=== PATIENT | male | born 1975 | race Caucasian/White ===

== ENCOUNTER 2019-11-04 07:41 | Inpatient (IN) | payer OTHER, SELFPAY ==
[2019-11-04] VITALS (14 sets, daily range): BP systolic 124–153; BP diastolic 83–96; PULSE 78–120; RESP 15–18; TEMP 36.6–37; O2SAT 99–100; BMI 22.8
--- NOTE | ~2019-11-04 | US_ITS ---
US right upper quadrant DATE: 11/05/2019 08:43 INDICATION: Abnormal liver function tests TECHNIQUE: Real-time imaging and Doppler analysis of the right upper quadrant including liver, pancre as, gallbladder COMPARISON: 07/01/2017 CT abdomen pelvis FINDINGS: The common bile duct measures 4 mm, within normal limits. Normal hepatopedal portal venous flow direction. No gallstones are evident. Negative sonographic Rodas's sign. There is fatty change of the liver. No hepatic or pancreatic space-occupying mass lesion is evident. IMPRESSION: Hepatic steatosis Reviewed, dictated and finalized at [facility] Reviewed, dictated and finalized at [facility] IMPRESSION: Hepatic steatosis
--- NOTE | 2019-11-04 07:45 | ED.ALCOHOL ---
HPI - Alcohol General Chief Complaint: Alcohol Stated Complaint: etoh withdrawals Time Seen by Provider: 11/04/19 07:44 Source: patient Mode of arrival: ambulatory Limitations: no limitations History of Present Illness HPI narrative: A 44 y/o male presents to the ED with c/o alcohol withdrawals. Pt states that he has a PMHx of alcoholism and recently had a relapse. He notes that he stopped drinking on 10/31/19 and started to have withdrawal symptoms last night. Pt adds that he cannot sleep, is shaky, and is diaphoretic. He denies hallucinations, seizures, and fever. Pt states that he has been in an outpatient detox program before and was prescribed Ativan. He notes that he has not had any Ativan since his most recent relapse. Dr. Garay is his PCP. MD complaint: alcohol withdrawal Last drink: days (ago) (4) Chronic alcohol use: Yes Associated symptoms: diaphoresis and other (shakiness, trouble sleeping) Related Data Home Medications Medication Instructions Recorded Confirmed hydrochlorothiazide 25 mg tablet 25 mg PO DAILY 10/13/19 insulin admin supplies #1 each 10/13/19 lisinopril 40 mg tablet 40 mg PO DAILY 10/13/19 insulin lispro [Humalog U-100 11/04/19 Insulin] Allergies Allergy/AdvReac Type Severity Reaction Status Date / Time No Known Allergies Allergy Verified 11/04/19 07:51 Review of Systems Review of Systems: All systems reviewed & are unremarkable except as noted in HPI and below Constitutional: Constitutional: Denies fever(s) and Reports other (trouble sleeping, shakiness) Cardiovascular: Cardiovascular: Reports other (diaphoresis) Neurologic: Denies other (seizure) Psychiatric: Psychiatric: Denies other (hallucinations) [facility] Past Medical History Medical History Adjustment disorder with anxiety Benign essential HTN Diabetes type 1, controlled History of resection and anastomosis of trachea Hyperlipidemia Major depression, recurrent, chronic Pneumonia Seasonal allergies Tracheal stenosis Surgical History Surgical History (Updated 11/04/19 @ 07:48 by Angela Spicer) No pertinent past surgical history Family History Family History Father Family history of hypercholesterolemia Family history of cardiovascular disease Mother Hypertension Social History Social History (Updated 11/04/19 @ 07:49 by Angela Luciano Smoking status: Never smoker Alcohol intake: current Alcohol use details: Alcoholic Gender identity (if verbalized by the patient): Male Exam Const: General: healthy appearing and no acute distress Nutritional Appearance: well nourished HENMT: Mouth: Yes lip normal and Yes dry mucous membranes Eyes: Conjunctivae: conjunctivae normal Pupils: Equal, round and reactive pupils present Resp: Effort & Inspection: normal respiratory effort Auscultation: clear to auscultation bilaterally Cardio: Rate: tachycardic Rhythm: regular rhythm Heart sounds: no murmurs GI: GI Palp: Yes Soft to palpation and No Tenderness to palpation present (GI) Auscultation: normal bowel sounds Back/Spine/Pelvis: Back: other (full ROM) Skin: General skin exam: normal color, dry skin and other (warm) Neuro: General: patient oriented x3 (alert) and other (tremor) Speech: normal speech Extrem: General: full ROM Psych: Mental Status: mental status grossly normal Affect: normal affect Course Vital Signs Vital signs: Vital Signs Temperature 36.8 C 11/04/19 07:45 Pulse Rate 117 H 11/04/19 07:45 Respiratory Rate 18 11/04/19 07:45 Blood Pressure 150/96 H 11/04/19 07:45 Pulse Oximetry 100 11/04/19 07:45 Temperature 36.8 C 11/04/19 07:45 Pulse Rate 92 11/04/19 08:54 Respiratory Rate 15 11/04/19 08:54 Blood Pressure 152/85 H 11/04/19 08:54 Pulse Oximetry 100 11/04/19 08:54 MDM - Alcohol MDM Narrative Medical decision making narrative:
[2019-11-04 07:50] LABS: Glucose Point of Care 292 (65-105)
[2019-11-04] MEDS: SODIUM CHLORIDE 0.9% IV 1,000 ML 999 ML IV CONT (08:01)
[2019-11-04] MEDS: LORAZEPAM INJ 2 MG/ML VIAL 4 MG IV PUSH (08:01)
[2019-11-04 08:14] LABS: Basophils Absolute Auto 0.1 K/mm3 (0.0-0.1); Basophils Percent Auto 1.8 % (0.2-1.2); Eosinophils Percent Auto 0.4 % (0-4.4); Hematocrit 37.8 % (42.0-52.0); Hemoglobin 13.1 g/dL (14.0-18.0); Immature Granulocyte Absolute 0.02 K/mm3 (0.00-0.031); Immature Granulocyte Percent A 0.4 % (0-0.5); Lymphocytes Percent Auto 10.1 % (18.3-44.2); Mean Corpuscular HGB Conc 34.7 g/dl (32-36); Mean Corpuscular Hemoglobin 32.9 pg (26-34); Mean Platelet Volume 9.2 fl (7.4-10.4); Monocytes Absolute Auto 0.6 K/mm3 (0.1-0.6); Monocytes Percent Auto 12.5 % (2.6-8.5); Neutrophils Absolute Auto 3.7 K/mm3 (1.3-6.7); Neutrophils Percent Auto 74.8 % (45.5-73.1); Platelet Count Result 232 k/mm3 (150-375); Red Blood Count 3.98 M/mm3 (4.6-6.20); Red Cell Distribution Width 11.6 % (11.5-14.5)
[2019-11-04 08:26] LABS: Alanine Aminotransferase 66 U/L (4-50); Albumin Level 4.9 g/dL (3.5-5.1); Alkaline Phosphatase 173 U/L (38-126); Aspartate Amino Transferase 116 U/L (17-59); Bilirubin,Total 0.9 mg/dL (0.2-1.3); Blood Urea Nitrogen 9 mg/dL (9-20); Calcium 8.9 mg/dL (8.4-10.2); Carbon Dioxide 29 mmol/L (22-30); Chloride 88 mmol/L (98-107); Estimated CRCL calculation 129 ml/min; Estimated Glomerular Filt Rate > 60; Glucose 285 mg/dL (75-110); Potassium 4.3 mmol/L (3.4-5.0); Sodium 130 mmol/L (137-145)
[2019-11-04] MEDS: LORAZEPAM INJ 2 MG/ML VIAL IV PUSH (08:53)
[2019-11-04] MEDS: FOLIC ACID 1 MG TABLET PO (09:56)
[2019-11-04] MEDS: CHLORDIAZEPOXIDE 25 MG CAPSULE 100 MG PO ×3 (09:56→23:56)
[2019-11-04] MEDS: THIAMINE HCL 100 MG TABLET PO (09:56)
[2019-11-04 11:46] LABS: Glucose Point of Care 101 (65-105)
--- NOTE | 2019-11-04 12:10 | ADMGEN ---
This patient, Eduard Dc, was admitted to IMU Room 204-0 @ 1015. Patient pt cooperative - oriented to hospital policies and general routines including ID bracelet, bed and alarms, visiting hours, pain management, procedures, bathroom and other care routines, personal items, smoking policy, room service/diet, and visiting hours. Valuables list has been completed. Information on how to activate the Rapid Response Team has been discussed. Patient are encouraged to report perceived risks to care and to ask questions if they do not understand what they are told or what they should do.
--- NOTE | 2019-11-04 12:57 | PM.IMHP ---
H&P: HPI History of Present Illness Chief complaint: Alcohol withdrawal Narrative: Eduard Dc is a 44 year old male 44-year-old male with history of alcohol abuse. He was a social drinker prior to 2017. At that time he began drinking 6 shots of bourbon per day. He had from his family. However when they went on vacation in 2018 he went into withdrawal. He was hospitalized and intubated. Because of post intubation tracheal stenosis he underwent a resection of the stenotic area of trachea which he was told was only 3 mm in diameter. He did well and did not relapse until July 2019. He gradually being drinking again. He saw psychiatrist in September of 2019 and stopped drinking. He remained dry for about a month and then began drinking a little bit of time in September. He slowly work his way back up to about 6 shots of bourbon per day. He would drink until he passed out. Four days prior to admission he decided to stop drinking again. He gradually developed worsening shakes sweats anxiety and insomnia. Because he was afraid of full delirium tremens with hallucinations as he had last time and even seizures which she never had he decided to come to the emergency department instead of treating himself at home. After 6 mg of Ativan IV and 100 mg of Librium orally he is much less shaky and anxious. He does have a history of major depressive disorder with associated anxiety. He also has a family history of alcoholism in his father. Patient denied any history of DUI. 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 However it is causing a severe strain on his relationship with his . Review of Systems Review of Systems: All systems reviewed & are unremarkable except as noted in HPI and below PMFSH Past Medical History Medical History (Updated 11/04/19 @ 14:02 by Sadiq Barahona MD) Benign essential HTN Chest wall pain following surgery Diabetes type 1, controlled Hyperlipidemia Major depression, recurrent, chronic Pneumonia Seasonal allergies Tracheal stenosis Surgical History Surgical History (Updated 11/04/19 @ 13:54 by Sadiq Barahona MD) History of resection and anastomosis of trachea Family History Family History (Updated 11/04/19 @ 14:17 by Sadiq Barahona MD) Father Family history of hypercholesterolemia Family history of cardiovascular disease COPD (chronic obstructive pulmonary disease) Alcoholism Mother Hypertension Social History Social History (Updated 11/04/19 @ 13:56 by Sadiq Barahona MD) Smoking status: Never smoker Second hand tobacco smoke exposure: Yes (father) Alcohol intake: current Drinks per week: 40 Alcohol use details: Alcoholic Substance use: never Living arrangements: with family Additional living arrangements comments: Resides with spouse and 3 children, ages 5,10, and 22. 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 Gender identity (if verbalized by the patient): Male Spiritual care concerns: No Agree to blood products: Yes Meds Home Medications and Allergies Home Medications Medication Instructions Recorded Confirmed Type hydrochlorothiazide 25 mg tablet 25 mg PO DAILY 10/13/19 11/04/19 History lisinopril 40 mg tablet 40 mg PO DAILY 10/13/19 11/04/19 History bupropion HCl 75 mg tablet 75 mg PO TID #30 tablet 10/17/19 11/04/19 Rx naltrexone 50 mg tablet 50 mg PO DAILY #30 tablet 10/17/19 11/04/19 Rx atorvastatin [Lipitor] 10 mg PO DAILY 11/04/19 11/04/19 History insulin lispro [Humalog U-100 See Rx Instructions .ROUTE .COMPLEX 11/04/19 11/04/19 History Insulin] lorazepam [Ativan] 0.5 mg PO TID PRN 11/04/19 11/04/19 History Allergies Allergy/AdvReac Type Severity Reaction Status Date / Time No Known Allergies Allergy Verified 11/04/19 07:51 Vital Signs Vital Signs - 24 hr 11/04/19 07:45 11/04/19
[2019-11-04] MEDS: lisinopriL 20 MG TABLET 40 MG PO (14:48)
[2019-11-04] MEDS: ATORVASTATIN 10 MG TABLET PO (14:48)
[2019-11-04 15:10] LABS: Immature Reticulocyte Fraction 9.6 % (3.0-15.9); Reticulocyte Hemoglobin Conten 39.4 pg (28.2-35.7); Reticulocyte Percent 3.06 % (0.7-4.3); Reticulocytes Absolute 0.12 B/L (32.2-175.7)
[2019-11-04 15:33] LABS: Iron 101 ug/dL (49-181)
[2019-11-04 15:38] LABS: Magnesium 1.5 mg/dL (1.6-2.3)
[2019-11-04 15:41] LABS: Percent Iron Saturation 35 % (20-50)
[2019-11-04 16:00] LABS: IFOB Positive Control Positive; Immunochemical Fecal Occult Bl Negative (N)
[2019-11-04 16:09] LABS: Hepatitis B Surface Antigen Negative (Negative)
[2019-11-04 16:12] LABS: CRP 0.8 mg/dL (<1.0)
[2019-11-04 16:15] LABS: HAV RESULT Negative (Negative); Hepatitis B Core IgM Result Negative (Negative)
[2019-11-04 16:27] LABS: Hepatitis C Virus Antibody Negative (Negative)
[2019-11-04] MEDS: buPROPion HCL 75 MG TABLET PO (16:41)
[2019-11-04 16:52] LABS: Folic Acid > 20.0 ng/mL (2.76->20)
[2019-11-04 17:18] LABS: Glucose Point of Care 251 (65-105)
[2019-11-05] VITALS (17 sets, daily range): BP systolic 80–128; BP diastolic 56–79; PULSE 82–132; RESP 16–21; TEMP 35.8–36.7; O2SAT 99–100
[2019-11-05 04:42] LABS: Hematocrit 40.3 % (42.0-52.0); Hemoglobin 13.9 g/dL (14.0-18.0); Mean Corpuscular HGB Conc 34.5 g/dl (32-36); Mean Corpuscular Hemoglobin 33.3 pg (26-34); Mean Corpuscular Volume 96.4 fl (80-100); Mean Platelet Volume 9.6 fl (7.4-10.4); Platelet Count Result 210 k/mm3 (150-375); Red Blood Count 4.18 M/mm3 (4.6-6.20); Red Cell Distribution Width 11.9 % (11.5-14.5); White Blood Count 4.8 K/mm3 (4.5-10.0)
[2019-11-05 05:03] LABS: Alanine Aminotransferase 55 U/L (4-50); Albumin Level 4.4 g/dL (3.5-5.1); Alkaline Phosphatase 162 U/L (38-126); Aspartate Amino Transferase 76 U/L (17-59); Bilirubin,Total 1.4 mg/dL (0.2-1.3); Blood Urea Nitrogen 13 mg/dL (9-20); Calcium 9.4 mg/dL (8.4-10.2); Carbon Dioxide 23 mmol/L (22-30); Chloride 91 mmol/L (98-107); Estimated CRCL calculation 99 ml/min; Estimated Glomerular Filt Rate > 60; Glucose 377 mg/dL (75-110); Magnesium 1.7 mg/dL (1.6-2.3); Potassium 4.9 mmol/L (3.4-5.0); Sodium 130 mmol/L (137-145)
[2019-11-05] MEDS: CHLORDIAZEPOXIDE 25 MG CAPSULE 100 MG PO ×4 (06:13→23:44)
[2019-11-05] MEDS: THERAPEUTIC MULTIVITAMINS/MINERALS TAB (*BKC) 1 TABLET PO (08:52)
[2019-11-05] MEDS: buPROPion HCL 75 MG TABLET PO ×3 (08:53→17:41)
[2019-11-05] MEDS: lisinopriL 20 MG TABLET 40 MG PO (08:53)
[2019-11-05] MEDS: THIAMINE HCL 100 MG TABLET PO (08:53)
[2019-11-05] MEDS: ATORVASTATIN 10 MG TABLET PO (08:53)
--- NOTE | 2019-11-05 08:56 | PC.NURSE ---
pt blood sugar is 225 - pt has insulin pump- bolused self with 2.5 units
--- NOTE | 2019-11-05 09:58 | P.PNIM_ITS ---
Progress Note: A&P Assessment and Plan (1) Alcohol withdrawal syndrome: Qualifiers: Complication of substance-induced condition: uncomplicated Qualified Code(s): F10.230 - Alcohol dependence with withdrawal, uncomplicated Code(s): F10.239 - Alcohol dependence with withdrawal, unspecified Status: Acute Assessment and Plan: * Due to recent relapse and quitting alcohol abruptly 4 days prior to admission * Symptoms include restlessness shakes sweats anxiety and insomnia * He received 6 mg of IV Ativan in the emergency department as well as 100 mg of oral Librium * Continue oral Librium 100 mg p.o. every 6 hours * Lorazepam 2 mg IV q.2 hours p.r.n. CIWA scale 8 or above * Thiamine, folic acid, multivitamin * 4/5 doing much better * Encouraged continued participation in alcoholics anonymous via virtual meetings * Anticipate possible discharge 11/05 with resumption of his naltrexone and tapering dose of Librium. (2) Diabetes type 1, controlled: Qualifiers: Diabetes mellitus complication status: without complication Qualified Code(s): E10.9 - Type 1 diabetes mellitus without complications Code(s): E10.9 - Type 1 diabetes mellitus without complications Status: Chronic Assessment and Plan: * Continue his insulin pump at 0.6 units/hour nighttime and 1.6 units/hr daytime basal rate and 1 unit per 12 g carbohydrate consumed boluses * Diabetic consistent carb diet * 11/03 BS 101-292 w/o hypoglycemia * 11/04 FBS 377 * Continue to monitor (3) Major depression, recurrent, chronic: Code(s): F33.9 - Major depressive disorder, recurrent, unspecified Status: Chronic Assessment and Plan: * Continue home regimen and follow-up with [facility] and Dr. Garay as outpatient (4) Benign essential HTN: Code(s): I10 - Essential (primary) hypertension Status: Chronic Assessment and Plan: * Continue home regimen, except hold HCTZ * Monitor (5) Anemia: Qualifiers: Anemia type: other cause Other causes of anemia: chronic disease, other Qualified Code(s): D63.8 - Anemia in other chronic diseases classified elsewhere Code(s): D64.9 - Anemia, unspecified Status: Acute Assessment and Plan: * Suspect chronic disease due to diabetes versus marrow suppression from alcohol * With platelets and white count being normal the former is more likely * Check B12 folic acid iron TIBC reticulocyte count stool for occult blood all c/w anemia of chronic disease (6) Abnormal liver enzymes: Code(s): R74.8 - Abnormal levels of other serum enzymes Status: Acute Assessment and Plan: * 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 4/5 feeling much better on 100 mg a Librium every 6 hours. Has not required p.r.n. lorazepam. Slept most of the day yesterday but is wide awake today. Eating well. Denied pain. Denied shortness of breath. Denied GI or disturbance. Denied abnormal bleeding. Denied dizziness weakness or numbness. Review of Systems Review of Systems: All systems reviewed & are unremarkable except as noted in HPI and below Exam Narrative: Exam Narrative: HEENT: EOMI, PERRL, pharyngeal
--- NOTE | 2019-11-05 09:58 | PM.IMPN ---
Progress Note: A&P Assessment and Plan (1) Alcohol withdrawal syndrome: Qualifiers: Complication of substance-induced condition: uncomplicated Qualified Code(s): F10.230 - Alcohol dependence with withdrawal, uncomplicated Code(s): F10.239 - Alcohol dependence with withdrawal, unspecified Status: Acute Assessment and Plan: Due to recent relapse and quitting alcohol abruptly 4 days prior to admission Symptoms include restlessness shakes sweats anxiety and insomnia He received 6 mg of IV Ativan in the emergency department as well as 100 mg of oral Librium Continue oral Librium 100 mg p.o. every 6 hours Lorazepam 2 mg IV q.2 hours p.r.n. CIWA scale 8 or above Thiamine, folic acid, multivitamin 4 doing much better Encouraged continued participation in alcoholics anonymous via virtual meetings Anticipate possible discharge 11/05 with resumption of his naltrexone and tapering dose of Librium. (2) Diabetes type 1, controlled: Qualifiers: Diabetes mellitus complication status: without complication Qualified Code(s): E10.9 - Type 1 diabetes mellitus without complications Code(s): E10.9 - Type 1 diabetes mellitus without complications Status: Chronic Assessment and Plan: Continue his insulin pump at 0.6 units/hour nighttime and 1.6 units/hr daytime basal rate and 1 unit per 12 g carbohydrate consumed boluses Diabetic consistent carb diet 11/03 BS 101-292 w/o hypoglycemia 11/04 FBS 377 Continue to monitor (3) Major depression, recurrent, chronic: Code(s): F33.9 - Major depressive disorder, recurrent, unspecified Status: Chronic Assessment and Plan: Continue home regimen and follow-up with [facility] and Dr. Garay as outpatient (4) Benign essential HTN: Code(s): I10 - Essential (primary) hypertension Status: Chronic Assessment and Plan: Continue home regimen, except hold HCTZ Monitor (5) Anemia: Qualifiers: Anemia type: other cause Other causes of anemia: chronic disease, other Qualified Code(s): D63.8 - Anemia in other chronic diseases classified elsewhere Code(s): D64.9 - Anemia, unspecified Status: Acute Assessment and Plan: Suspect chronic disease due to diabetes versus marrow suppression from alcohol With platelets and white count being normal the former is more likely Check B12 folic acid iron TIBC reticulocyte count stool for occult blood all c/w anemia of chronic disease (6) Abnormal liver enzymes: Code(s): R74.8 - Abnormal levels of other serum enzymes Status: Acute Assessment and Plan: 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 4/5 feeling much better on 100 mg a Librium every 6 hours. Has not required p.r.n. lorazepam. Slept most of the day yesterday but is wide awake today. Eating well. Denied pain. Denied shortness of breath. Denied GI or disturbance. Denied abnormal bleeding. Denied dizziness weakness or numbness. Review of Systems Review of Systems: All systems reviewed & are unremarkable except as noted in HPI and below Exam Narrative: Exam Narrative: HEENT: EOMI, PERRL, pharyngeal mucosa pink and intact NECK: No JVD CHEST: Clear to auscultation. Normal effort. HEART: NL S1/S2, regular, no murmur ABDOMEN: BS+, soft, nontender, no mass, no bruits EXTREMITIES: No cyanosis, edema, or clubbing NEUROLOGIC: CN intact and symmetric to inspection. MUSCULOSKELETAL: Tone and strength symmetric. PSYCH: Alert. Oriented to person, place, and time. Objective Data Vital Signs Vital Signs: Vital Signs - 24
[2019-11-05] MEDS: PROPRANOLOL HCL 10 MG TABLET PO ×2 (10:39→20:17)
[2019-11-05] MEDS: FOLIC ACID 1 MG TABLET PO (10:40)
--- NOTE | 2019-11-05 11:03 | PC.NURSE ---
pt transferred to [address] [place] [address] as ordered -via bed accompanied by staff-report given to Teodoro QUACH-personal belongings with pt
--- NOTE | 2019-11-05 11:13 | PC.NURSE ---
This patient, Eduard Dc, was received from IMU on 11/05/19 at 1349. Personal belongings list checked and signed. Patient/family oriented to unit policies and routines. Report received [facility].
--- NOTE | 2019-11-05 12:00 | PC.NURSE ---
Patient blood sugar 125. Basal rate is 0.900. No bolus needed patient did not eat.
[2019-11-05] MEDS: SODIUM CHLORIDE 0.9% IV 1,000 ML 500 ML IV CONT (16:15)
[2019-11-05 16:44] LABS: Glucose Point of Care 131 (65-105)
--- NOTE | 2019-11-05 17:00 | PC.NURSE ---
Patient blood sugar 131. Basal rate is 0.900. Patient gave 71 unit bolus.
[2019-11-05] MEDS: ENOXAPARIN 40 MG/0.4 ML SYRINGE SUB-Q (17:49)
[2019-11-05] MEDS: SODIUM CHLORIDE 0.9% IV 1,000 ML 100 ML IV CONT (18:28)
--- NOTE | 2019-11-05 18:31 | PC.NURSE ---
Patient blood sugar at 5 pm was 131. Basal rate is 0.9 and the patient administered a bolus of 63 units on the insulin pump.
--- NOTE | 2019-11-05 19:41 | PC.NURSE ---
Patient's blood sugar at 6 pm was 151. He gave a 5.2 unit bolus per orders with insulin pump.
[2019-11-05] MEDS: LORAZEPAM INJ 2 MG/ML VIAL IV PUSH (20:18)
--- NOTE | 2019-11-05 20:37 | PC.NURSE ---
156 blood sugar per patient
[2019-11-06] VITALS (10 sets, daily range): BP systolic 116–136; BP diastolic 71–100; PULSE 69–96; RESP 11–17; TEMP 36.3–36.5; O2SAT 93–100; BMI 22.8
[2019-11-06] MEDS: LORAZEPAM INJ 2 MG/ML VIAL IV PUSH (03:48)
[2019-11-06] MEDS: SODIUM CHLORIDE 0.9% IV 1,000 ML 100 ML IV CONT ×2 (03:59→13:58)
[2019-11-06] MEDS: LORAZEPAM INJ 2 MG/ML VIAL 4 MG IV PUSH (05:10)
[2019-11-06] MEDS: CHLORDIAZEPOXIDE 25 MG CAPSULE 50 MG PO (05:10)
[2019-11-06 05:13] LABS: Hematocrit 34.8 % (42.0-52.0); Mean Corpuscular HGB Conc 34.5 g/dl (32-36); Mean Corpuscular Hemoglobin 33.2 pg (26-34); Mean Corpuscular Volume 96.4 fl (80-100); Mean Platelet Volume 9.6 fl (7.4-10.4); Platelet Count Result 219 k/mm3 (150-375); Red Blood Count 3.61 M/mm3 (4.6-6.20); Red Cell Distribution Width 11.7 % (11.5-14.5)
[2019-11-06 05:22] LABS: Alanine Aminotransferase 55 U/L (4-50); Albumin Level 3.5 g/dL (3.5-5.1); Alkaline Phosphatase 157 U/L (38-126); Aspartate Amino Transferase 81 U/L (17-59); Bilirubin,Total 0.8 mg/dL (0.2-1.3); Blood Urea Nitrogen 20 mg/dL (9-20); Calcium 8.2 mg/dL (8.4-10.2); Carbon Dioxide 27 mmol/L (22-30); Chloride 95 mmol/L (98-107); Estimated CRCL calculation 112 ml/min; Estimated Glomerular Filt Rate > 60; Glucose 273 mg/dL (75-110); Magnesium 1.6 mg/dL (1.6-2.3); Potassium 4.1 mmol/L (3.4-5.0); Sodium 129 mmol/L (137-145)
--- NOTE | 2019-11-06 05:45 | PC.NURSE ---
Spoke with houseperson about medication ordered and also updated on patient condition. Alayna stated would talk with Dr Kearns and come up as well.
[2019-11-06] MEDS: LORAZEPAM INJ 2 MG/ML VIAL 6 MG IV PUSH (05:48)
--- NOTE | 2019-11-06 06:05 | PC.NURSE ---
Call placed to [facility] and informed of patient condition and agitation. Informed that patient would be moving to ICU.
[2019-11-06] MEDS: CHLORDIAZEPOXIDE 25 MG CAPSULE 150 MG PO ×3 (06:08→16:52)
--- NOTE | 2019-11-06 06:10 | PC.NURSE ---
Report called to Nav in ICU.
--- NOTE | 2019-11-06 06:15 | PC.NURSE ---
Pt transferred to ICU. Belongings sent with patient. Pt remains confused and anxious.
--- NOTE | 2019-11-06 06:23 | PM.EVENT ---
Event Note Event Note Event Note: I was called by nursing staff around 5:00 a.m. due to patient having increased agitation, tremor, sweats with a CIWA score of 20. The patient's prior CIWA scores have been between 8 and 13. He had had a CIWA score of 13 and received 2 mg of Ativan about an hour before I was called. Despite Ativan the patient was becoming more anxious and restless. Orders were given increase his Ativan and Librium. Nursing staff repeat his CIWA score prior to giving the increased Ativan dose and his score was 20. He subsequently received the 50 mg of Librium and 4 mg of Ativan. Despite these medications patient's tremor could continued to worsen he became more agitated and diaphoretic. I gave an order for 1 time dose of 6 mg of Ativan. When I arrived at the bedside the patient was receiving Ativan IV administered by the nursing school crossing guard supervisor. After Ativan administration the patient's CIWA score had decreased back down to an 18. By that time the patient was due for another 150 mg of Librium which was an increased dose from 100 mg of Librium previously. Given the nurses discomfort with the large doses of Ativan and the patient's significantly elevated CIWA score the patient was subsequently transferred to the ICU. The chenille machine operator was notified of the patient's change in condition and agreed to consult. 1. Alcohol withdrawal with worsening symptoms: Patient will be transferred to the ICU with initiation of a Precedex bolus and drip. 2. Insulin-dependent diabetes: Patient's insulin pump has been discontinued as the patient was witnessed to be confused and having difficulty checking his own glucoses at the time of my evaluation. I will defer transitioning the patient's insulin to Lantus to the chenille machine operator. Will continue sliding scale insulin. 30 minutes spent in critical care activities including review the patient's chart, examination, discussion of the patient's case with nursing staff and chenille machine operator and initiation of IV sedative therapy as well as arranging transfer to the ICU.
[2019-11-06 06:34] LABS: Glucose Point of Care 302 (65-105)
[2019-11-06 07:50] LABS: Glucose Point of Care 307 (65-105)
[2019-11-06] MEDS: LACTATED RINGERS 1,000 ML 999 ML IV CONT (09:29)
[2019-11-06] MEDS: INSULIN ASPART (*BKC) 100 UNITS/ML SUB-Q ×2 (09:29→12:20)
--- NOTE | 2019-11-06 09:57 | P.PNIM_ITS ---
Progress Note: A&P Assessment and Plan (1) Alcohol withdrawal syndrome: Qualifiers: Complication of substance-induced condition: uncomplicated Qualified Code(s): F10.230 - Alcohol dependence with withdrawal, uncomplicated Code(s): F10.239 - Alcohol dependence with withdrawal, unspecified Status: Acute Assessment and Plan: * Due to recent relapse and quitting alcohol abruptly 4 days prior to admission * Symptoms include restlessness shakes sweats anxiety and insomnia * He received 6 mg of IV Ativan in the emergency department as well as 100 mg of oral Librium * Continue oral Librium 150 mg p.o. every 6 hours * Lorazepam 2 mg IV q.2 hours p.r.n. CIWA scale 8 or above * Precedex low dose infusion (2) Diabetes type 1, controlled: Qualifiers: Diabetes mellitus complication status: without complication Qualified Code(s): E10.9 - Type 1 diabetes mellitus without complications Code(s): E10.9 - Type 1 diabetes mellitus without complications Status: Chronic Assessment and Plan: * Continued his insulin pump at 0.6 units/hour nighttime and 1.6 units/hr daytime basal rate and 1 unit per 12 g carbohydrate consumed boluses until he decompensated / AM * / Levemir 8 u Q 12 hr with moderate dose SSI * Diabetic consistent carb diet * 11/03 BS 101-292 w/o hypoglycemia * 11/04 FBS 377, 11/05 248 * Continue to monitor (3) Major depression, recurrent, chronic: Code(s): F33.9 - Major depressive disorder, recurrent, unspecified Status: Chronic Assessment and Plan: * Continue home regimen and follow-up with NEMATOLOGIST and Dr. Garay as outpatient (4) Benign essential HTN: Code(s): I10 - Essential (primary) hypertension Status: Chronic Assessment and Plan: * Continue home regimen, except hold HCTZ * Monitor (5) Anemia: Qualifiers: Anemia type: other cause Other causes of anemia: chronic disease, other Qualified Code(s): D63.8 - Anemia in other chronic diseases classified elsewhere Code(s): D64.9 - Anemia, unspecified Status: Acute Assessment and Plan: * Suspect chronic disease due to diabetes versus marrow suppression from alcohol * With platelets and white count being normal the former is more likely * Check B12 folic acid iron TIBC reticulocyte count stool for occult blood all c/w anemia of chronic disease (6) Abnormal liver enzymes: Code(s): R74.8 - Abnormal levels of other serum enzymes Status: Acute Assessment and Plan: * 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 4/5 felt much better on 100 mg a Librium every 6 hours. Has not required p.r.n. lorazepam. Slept most of the day yesterday but is wide awake today. Eating well. Denied pain. Denied shortness of breath. Denied GI or disturbance. Denied abnormal bleeding. Denied dizziness weakness or numbness. /6 early AM becam agitated and was hallucinating. 6mg IV Ativan plus 50mg PO Librium w/o benefit. Transferred to ICU for Precedex. Review of Systems Review of Systems: ROS unobtainable: Yes unobtainable due to medical condition Exam Narrative: Exam Narrative: HEENT: EOMI, PERRL, pharyngeal mucosa pink and
--- NOTE | 2019-11-06 09:57 | PM.IMPN ---
Progress Note: A&P Assessment and Plan (1) Alcohol withdrawal syndrome: Qualifiers: Complication of substance-induced condition: uncomplicated Qualified Code(s): F10.230 - Alcohol dependence with withdrawal, uncomplicated Code(s): F10.239 - Alcohol dependence with withdrawal, unspecified Status: Acute Assessment and Plan: Due to recent relapse and quitting alcohol abruptly 4 days prior to admission Symptoms include restlessness shakes sweats anxiety and insomnia He received 6 mg of IV Ativan in the emergency department as well as 100 mg of oral Librium Continue oral Librium 150 mg p.o. every 6 hours Lorazepam 2 mg IV q.2 hours p.r.n. CIWA scale 8 or above Precedex low dose infusion (2) Diabetes type 1, controlled: Qualifiers: Diabetes mellitus complication status: without complication Qualified Code(s): E10.9 - Type 1 diabetes mellitus without complications Code(s): E10.9 - Type 1 diabetes mellitus without complications Status: Chronic Assessment and Plan: Continued his insulin pump at 0.6 units/hour nighttime and 1.6 units/hr daytime basal rate and 1 unit per 12 g carbohydrate consumed boluses until he decompensated 4/6 AM 11/05 Levemir 8 u Q 12 hr with moderate dose SSI Diabetic consistent carb diet 11/03 BS 101-292 w/o hypoglycemia 11/04 FBS 377, 11/05 248 Continue to monitor (3) Major depression, recurrent, chronic: Code(s): F33.9 - Major depressive disorder, recurrent, unspecified Status: Chronic Assessment and Plan: Continue home regimen and follow-up with P[employer] and Dr. Garay as outpatient (4) Benign essential HTN: Code(s): I10 - Essential (primary) hypertension Status: Chronic Assessment and Plan: Continue home regimen, except hold HCTZ Monitor (5) Anemia: Qualifiers: Anemia type: other cause Other causes of anemia: chronic disease, other Qualified Code(s): D63.8 - Anemia in other chronic diseases classified elsewhere Code(s): D64.9 - Anemia, unspecified Status: Acute Assessment and Plan: Suspect chronic disease due to diabetes versus marrow suppression from alcohol With platelets and white count being normal the former is more likely Check B12 folic acid iron TIBC reticulocyte count stool for occult blood all c/w anemia of chronic disease (6) Abnormal liver enzymes: Code(s): R74.8 - Abnormal levels of other serum enzymes Status: Acute Assessment and Plan: 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 4/5 felt much better on 100 mg a Librium every 6 hours. Has not required p.r.n. lorazepam. Slept most of the day yesterday but is wide awake today. Eating well. Denied pain. Denied shortness of breath. Denied GI or disturbance. Denied abnormal bleeding. Denied dizziness weakness or numbness. 11/05 early AM becam agitated and was hallucinating. 6mg IV Ativan plus 50mg PO Librium w/o benefit. Transferred to ICU for Precedex. Review of Systems Review of Systems: ROS unobtainable: Yes unobtainable due to medical condition Exam Narrative: Exam Narrative: HEENT: EOMI, PERRL, pharyngeal mucosa pink and intact NECK: No JVD CHEST: Clear to auscultation. Normal effort. HEART: NL S1/S2, regular, no murmur ABDOMEN: BS+, soft, nontender, no mass, no bruits EXTREMITIES: No cyanosis, edema, or clubbing NEUROLOGIC: CN intact and symmetric to inspection. MUSCULOSKELETAL: Tone and strength symmetric. PSYCH: Alert. Oriented to person, place, and time. Objective Data Vital Signs Vital Signs: Vital Signs - 24 hr
--- NOTE | 2019-11-06 10:41 | WPDCNINT ---
Assessment and Plan Assessment and plan (1) Alcohol withdrawal syndrome: Qualifiers: Complication of substance-induced condition: uncomplicated Qualified Code(s): F10.230 - Alcohol dependence with withdrawal, uncomplicated Code(s): F10.239 - Alcohol dependence with withdrawal, unspecified Status: Acute Assessment and Plan: patient was given significant amount of Ativan on the medical floor when he was getting agitated, hallucinating, having tremors, sweats and elevated CIWA score. - Patient transfer the ICU for Precedex infusion, - currently on low-dose Precedex infusion, patient did wake up and sat on the side of the bed to urinate - he is currently cooperative - continue Librium, thiamine, multivitamins, folic acid (2) Diabetes type 1, controlled: Qualifiers: Diabetes mellitus complication status: without complication Qualified Code(s): E10.9 - Type 1 diabetes mellitus without complications Code(s): E10.9 - Type 1 diabetes mellitus without complications Status: Chronic Assessment and Plan: patient with history of diabetes type 1 on an insulin pump. Basal level of insulin is 22 units per day - appreciate community health educator evaluation and recommendations - start patient on Levemir 8 units q.12 hours. - Once patient starts eating will gives 6 units of regular insulin before meals - will obtain hemoglobin A1c (3) Major depression, recurrent, chronic: Code(s): F33.9 - Major depressive disorder, recurrent, unspecified Status: Chronic Assessment and Plan: continue bupropion (4) Abnormal liver enzymes: Code(s): R74.8 - Abnormal levels of other serum enzymes Status: Acute Assessment and Plan: ultrasound of the right upper quadrant showed hepatic steatosis, - elevated LFTs likely related to hepatic steatosis - continue to monitor (5) Benign essential HTN: Code(s): I10 - Essential (primary) hypertension Status: Chronic Assessment and Plan: blood pressure is currently stable, patient on lisinopril at home, will hold for now - p.r.n. hydralazine ordered (6) DVT prophylaxis: Code(s): Z29.9 - Encounter for prophylactic measures, unspecified Status: Acute Assessment and Plan: enoxaparin Additional Plan will discuss with family and updated them with patient's condition and plan of care. 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 Patient has a significant history of alcohol abuse he stop drinking 4 days prior to admission, developed worsening shakes, sweats, anxiety and insomnia. He has had this issue before for which he has been intubated which cause tracheal stenosis and he had and regarding resection And anastomosis. Patient was afraid he would developed full DTs and hallucinations as he had the last time along with seizures, That is when he decided to come to the ER to get treatment and help . Patient was on the medical floor in early this morning will have increased agitation, tremor, sweats with elevated CIWA scores. Patient received a total of 12 mg Ativan, and was transferred to the ICU for Precedex infusion. Patient seen examined the ICU, patient was somnolent, barely able to wake up and follows simple commands. Been snoring, was placed on CPAP, as he was apneic earlier on. Patient is currently off Precedex infusion. Patient hemodynamically stable, good O2 sats, afebrile with adequate urine output
[2019-11-06] MEDS: INSULIN DETEMIR 100 UNITS/ML 8 UNITS SUB-Q (10:44)
[2019-11-06 11:30] LABS: Glucose Point of Care 248 (65-105)
[2019-11-06 11:57] LABS: Glucose Point of Care 230 (65-105)
[2019-11-06] MEDS: buPROPion HCL 75 MG TABLET PO ×2 (13:53→16:52)
[2019-11-06 17:22] LABS: Glucose Point of Care 120 (65-105)
[2019-11-07] VITALS (14 sets, daily range): BP systolic 100–141; BP diastolic 73–89; PULSE 67–105; RESP 12–22; TEMP 36–36.8; O2SAT 96–100
[2019-11-07] MEDS: ENOXAPARIN 40 MG/0.4 ML SYRINGE SUB-Q ×2 (00:18→17:18)
[2019-11-07] MEDS: PROPRANOLOL HCL 10 MG TABLET PO ×3 (00:19→20:57)
[2019-11-07] MEDS: INSULIN DETEMIR 100 UNITS/ML 8 UNITS SUB-Q ×3 (00:21→20:58)
[2019-11-07 04:22] LABS: Hematocrit 35.8 % (42.0-52.0); Hemoglobin 12.3 g/dL (14.0-18.0); Mean Corpuscular HGB Conc 34.4 g/dl (32-36); Mean Corpuscular Hemoglobin 33.2 pg (26-34); Mean Corpuscular Volume 96.5 fl (80-100); Mean Platelet Volume 9.4 fl (7.4-10.4); Platelet Count Result 214 k/mm3 (150-375); Red Blood Count 3.71 M/mm3 (4.6-6.20); Red Cell Distribution Width 11.9 % (11.5-14.5); White Blood Count 4.9 K/mm3 (4.5-10.0)
[2019-11-07 05:04] LABS: Alanine Aminotransferase 54 U/L (4-50); Albumin Level 3.8 g/dL (3.5-5.1); Alkaline Phosphatase 109 U/L (38-126); Aspartate Amino Transferase 55 U/L (17-59); Bilirubin,Total 0.9 mg/dL (0.2-1.3); Blood Urea Nitrogen 10 mg/dL (9-20); Calcium 8.8 mg/dL (8.4-10.2); Carbon Dioxide 30 mmol/L (22-30); Chloride 99 mmol/L (98-107); Estimated CRCL calculation 112 ml/min; Estimated Glomerular Filt Rate > 60; Glucose 195 mg/dL (75-110); Magnesium 1.7 mg/dL (1.6-2.3); Sodium 137 mmol/L (137-145)
[2019-11-07] MEDS: CHLORDIAZEPOXIDE 25 MG CAPSULE 150 MG PO (06:51)
--- NOTE | 2019-11-07 07:34 | WPDINTPN ---
Progress Note: A&P Assessment and Plan (1) Alcohol withdrawal syndrome: Qualifiers: Complication of substance-induced condition: uncomplicated Qualified Code(s): F10.230 - Alcohol dependence with withdrawal, uncomplicated Code(s): F10.239 - Alcohol dependence with withdrawal, unspecified Status: Acute Assessment and Plan: patient was given significant amount of Ativan on the medical floor when he was getting agitated, hallucinating, having tremors, sweats and elevated CIWA score. - patient remains on Precedex infusion, still tremulous - he is currently cooperative - continue Librium, thiamine, multivitamins, folic acid (2) Diabetes type 1, controlled: Qualifiers: Diabetes mellitus complication status: without complication Qualified Code(s): E10.9 - Type 1 diabetes mellitus without complications Code(s): E10.9 - Type 1 diabetes mellitus without complications Status: Chronic Assessment and Plan: patient with history of diabetes type 1 on an insulin pump. Basal level of insulin is 22 units per day - appreciate public health educator evaluation and recommendations - continue Levemir 8 units q.12 hours. - Once patient starts eating will gives 6 units of regular insulin before meals - will obtain hemoglobin A1c (3) Major depression, recurrent, chronic: Code(s): F33.9 - Major depressive disorder, recurrent, unspecified Status: Chronic Assessment and Plan: continue bupropion (4) Abnormal liver enzymes: Code(s): R74.8 - Abnormal levels of other serum enzymes Status: Acute Assessment and Plan: ultrasound of the right upper quadrant showed hepatic steatosis, - elevated LFTs likely related to hepatic steatosis - continue to monitor (5) Benign essential HTN: Code(s): I10 - Essential (primary) hypertension Status: Chronic Assessment and Plan: blood pressure is currently stable, patient on lisinopril at home, will hold for now - p.r.n. hydralazine ordered (6) DVT prophylaxis: Code(s): Z29.9 - Encounter for prophylactic measures, unspecified Status: Acute Assessment and Plan: enoxaparin Additional Plan will discuss with family and updated them with patient's condition and plan of care. code status: Full code Critical care time spent: 32 minutes Subjective Date/time seen: 11/07/19 07:34 Reason for consult: alcohol withdrawal requiring Precedex infusion 11/07/2019: patient seen and examined this morning. Open his eyes to name, nods to questions and gives one-word answers to questions. Patient does follow simple commands. When asked if he was hungry he stated not at this time. Patient is hemodynamically stable, on Precedex infusion at 0.2 mcg/kg/hr. Patient denies any chest pain, nausea, vomiting, shortness of breath, abdominal pain. Patient is still tremulous. Is hemodynamically stable, adequate urine output and good O2 sats on room air Review of Systems Review of Systems: ROS unobtainable: Yes unobtainable due to mental status Exam Const: General: comfortable and no acute distress HENMT: Mouth: Yes moist mucous membranes Other: Eyes: Sclera: sclerae normal Pupils: Equal, round and reactive pupils present Neck: Neck: supple and no JVD Resp: Effort & Inspection: normal respiratory effort Auscultation: clear to auscultation bilaterally Cardio: Rate: regular rate Rhythm: regular rhythm GI: Inspection: non-distended Auscultation: normal bowel sounds : Other: deferred Urinary Catheter: Urinary Catheter: urine clear Skin: General skin exam: normal color and no rashes or lesions noted Neuro: Cranial nerves: Yes Equal, round and reactive pupils present Other: patient is more awake, answers to questions creatinine follows simple commands, still tremulous Extrem: General: normal to inspection, no edema and no pedal edema Psych: Other: un
[2019-11-07] MEDS: buPROPion HCL 75 MG TABLET PO ×3 (08:52→17:18)
[2019-11-07] MEDS: ATORVASTATIN 10 MG TABLET PO (08:52)
[2019-11-07 08:55] LABS: Hemoglobin A1C 7.3 % (<5.7)
[2019-11-07] MEDS: FOLIC ACID 1 MG TABLET PO (08:56)
[2019-11-07] MEDS: THIAMINE HCL 100 MG TABLET PO (08:57)
[2019-11-07] MEDS: THERAPEUTIC MULTIVITAMINS/MINERALS TAB (*BKC) 1 TABLET PO (08:57)
[2019-11-07 09:13] LABS: Glucose Point of Care 176 (65-105)
[2019-11-07] MEDS: INSULIN ASPART (*BKC) 100 UNITS/ML SUB-Q ×2 (12:14→17:17)
[2019-11-07] MEDS: CHLORDIAZEPOXIDE 25 MG CAPSULE 100 MG PO ×2 (12:22→17:18)
[2019-11-07 12:41] LABS: Glucose Point of Care 386 (65-105)
--- NOTE | 2019-11-07 14:41 | P.PNIM_ITS ---
Progress Note: A&P Assessment and Plan (1) Alcohol withdrawal syndrome: Qualifiers: Complication of substance-induced condition: uncomplicated Qualified Code(s): F10.230 - Alcohol dependence with withdrawal, uncomplicated Code(s): F10.239 - Alcohol dependence with withdrawal, unspecified Status: Acute Assessment and Plan: * Due to recent relapse and quitting alcohol abruptly 4 days prior to admission * Symptoms include restlessness shakes sweats anxiety and insomnia * He received 6 mg of IV Ativan in the emergency department as well as 100 mg of oral Librium * Continue oral Librium 150 mg p.o. every 6 hours * Lorazepam 2 mg IV q.2 hours p.r.n. CIWA scale 8 or above * Precedex low dose infusion titrated off today (2) Diabetes type 1, controlled: Qualifiers: Diabetes mellitus complication status: without complication Qualified Code(s): E10.9 - Type 1 diabetes mellitus without complications Code(s): E10.9 - Type 1 diabetes mellitus without complications Status: Chronic Assessment and Plan: * Continued his insulin pump at 0.6 units/hour nighttime and 1.6 units/hr daytime basal rate and 1 unit per 12 g carbohydrate consumed boluses until he decompensated 4/6 AM and will reatart all when eating wr * 11/05 Levemir 8 u Q 12 hr with moderate dose SSI * Diabetic consistent carb diet * A1C7.3with fbs [id number]lllllllllllllllllllllllllllllllllllllllllllllll llllllllllllllllllllllllllllllllllllllllllllllllllllll lllllllllllllllljlllllllllllllllllllllllllllllllllllllllllllllllllllllllllllll lllllllllllllllllllllllllllllllllllllllllllllllllllll (3) Major depression, recurrent, chronic: Code(s): F33.9 - Major depressive disorder, recurrent, unspecified Status: Chronic Assessment and Plan: * Continue home regimen and follow-up with RONALD and Dr. Garay as outpatient (4) Benign essential HTN: Code(s): I10 - Essential (primary) hypertension Status: Chronic Assessment and Plan: * Continue home regimen, except hold HCTZ * with bp up will resume reena (5) Anemia: Qualifiers: Anemia type: other cause Other causes of anemia: chronic disease, other Qualified Code(s): D63.8 - Anemia in other chronic diseases classified elsewhere Code(s): D64.9 - Anemia, unspecified Status: Acute Assessment and Plan: * Suspect chronic disease due to diabetes versus marrow suppression from alcohol * With platelets and white count being normal the former is more likely * Check B12 folic acid iron TIBC reticulocyte count stool for occult blood all c/w anemia of chronic disease (6) Abnormal liver enzymes: Code(s): R74.8 - Abnormal levels of other serum enzymes Status: Acute Assessment and Plan: * 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 44-year-old type 1 diabetic admitted 11/03 due to alcohol withdrawal caused by abrupt cessation of drinking 4 days prior to admission. 4/5 felt much better on 100 mg a Librium every 6 hours. 4/6 early AM became agitated and was hallucinating. 6mg IV Ativan plus 50mg PO Librium w/o benefit. Transferred to ICU for Precedex. To wean off today Exam Narrative: Exam Narrative: Blood pressure 108/854 pulse is 92 saturating 40% on room air HEENT:, PERRL, NECK: No JVD CHEST: Clear to aus
--- NOTE | 2019-11-07 14:41 | PM.IMPN ---
Progress Note: A&P Assessment and Plan (1) Alcohol withdrawal syndrome: Qualifiers: Complication of substance-induced condition: uncomplicated Qualified Code(s): F10.230 - Alcohol dependence with withdrawal, uncomplicated Code(s): F10.239 - Alcohol dependence with withdrawal, unspecified Status: Acute Assessment and Plan: Due to recent relapse and quitting alcohol abruptly 4 days prior to admission Symptoms include restlessness shakes sweats anxiety and insomnia He received 6 mg of IV Ativan in the emergency department as well as 100 mg of oral Librium Continue oral Librium 150 mg p.o. every 6 hours Lorazepam 2 mg IV q.2 hours p.r.n. CIWA scale 8 or above Precedex low dose infusion titrated off today (2) Diabetes type 1, controlled: Qualifiers: Diabetes mellitus complication status: without complication Qualified Code(s): E10.9 - Type 1 diabetes mellitus without complications Code(s): E10.9 - Type 1 diabetes mellitus without complications Status: Chronic Assessment and Plan: Continued his insulin pump at 0.6 units/hour nighttime and 1.6 units/hr daytime basal rate and 1 unit per 12 g carbohydrate consumed boluses until he decompensated 4/6 AM and will reatart all when eating wr 11/05 Levemir 8 u Q 12 hr with moderate dose SSI Diabetic consistent carb diet A1C7.3with fbs 185kkkkkkkkkkkkkkkkkkkkkkkkllllllllllllllllllllllllllllllllllllllllllllllllllllllllllllllllllllllllllllllllllllllllllllllllllllllllllllllllllllllllljlllllllllllllllllllllllllllllllllllllllllllllllllllllllllllllllllllllllllllllllllllllllllllllllllllll lllllllllllll (3) Major depression, recurrent, chronic: Code(s): F33.9 - Major depressive disorder, recurrent, unspecified Status: Chronic Assessment and Plan: Continue home regimen and follow-up with PRODUCTION FOREMAN and Dr. Garay as outpatient (4) Benign essential HTN: Code(s): I10 - Essential (primary) hypertension Status: Chronic Assessment and Plan: Continue home regimen, except hold HCTZ with bp up will resume reena (5) Anemia: Qualifiers: Anemia type: other cause Other causes of anemia: chronic disease, other Qualified Code(s): D63.8 - Anemia in other chronic diseases classified elsewhere Code(s): D64.9 - Anemia, unspecified Status: Acute Assessment and Plan: Suspect chronic disease due to diabetes versus marrow suppression from alcohol With platelets and white count being normal the former is more likely Check B12 folic acid iron TIBC reticulocyte count stool for occult blood all c/w anemia of chronic disease (6) Abnormal liver enzymes: Code(s): R74.8 - Abnormal levels of other serum enzymes Status: Acute Assessment and Plan: Pattern is 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 44-year-old type 1 diabetic admitted 11/03 due to alcohol withdrawal caused by abrupt cessation of drinking 4 days prior to admission. 11/04 felt much better on 100 mg a Librium every 6 hours. 11/05 early AM became agitated and was hallucinating. 6mg IV Ativan plus 50mg PO Librium w/o benefit. Transferred to ICU for Precedex. To wean off today Exam Narrative: Exam Narrative: Blood pressure 108/854 pulse is 92 saturating 40% on room air HEENT:, PERRL, NECK: No JVD CHEST: Clear to auscultation. Normal effort. HEART: NL S1/S2, regular, no murmur ABDOMEN: BS+, soft, nontender, no mass, no bruits EXTREMITIES: No cyanosis, edema, or clubbing NEUROLOGIC: sedated. PSYCH: Alert. Oriented to person, place, and time. Objective Data Vital Signs Vital Signs: Vital Signs - 24 hr 11/06/19 16:00 11/06/19 17:00 11/06/19 20:00 Temperature 36.4 C L Pulse Rate 96 96 Pulse Rate [Mo
[2019-11-07 17:39] LABS: Glucose Point of Care 332 (65-105)
--- NOTE | 2019-11-07 17:55 | PC.NURSE ---
Received from ICU 07/02 via wheelchair. Sitter with patient.
--- NOTE | 2019-11-07 19:39 | PC.NURSE ---
Transfered patient with all of his belongings to 3rd [facility] room 346. Gave report to Rossana. Patient tolerated transfer well.
[2019-11-07 21:05] LABS: Glucose Point of Care 386 (65-105)
[2019-11-07] MEDS: INSULIN ASPART (*BKC) 100 UNITS/ML 8 UNITS SUB-Q (22:10)
[2019-11-08] VITALS (12 sets, daily range): BP systolic 114–144; BP diastolic 72–87; PULSE 76–91; RESP 16–20; TEMP 36.1–36.7; O2SAT 100
[2019-11-08] MEDS: CHLORDIAZEPOXIDE 25 MG CAPSULE 100 MG PO ×3 (00:27→11:39)
[2019-11-08 01:56] LABS: Glucose Point of Care 193 (65-105)
[2019-11-08 04:21] LABS: Glucose Point of Care 134 (65-105)
[2019-11-08 06:02] LABS: Alanine Aminotransferase 41 U/L (4-50); Albumin Level 3.7 g/dL (3.5-5.1); Alkaline Phosphatase 111 U/L (38-126); Aspartate Amino Transferase 37 U/L (17-59); Bilirubin,Total 0.7 mg/dL (0.2-1.3); Blood Urea Nitrogen 12 mg/dL (9-20); Calcium 8.8 mg/dL (8.4-10.2); Carbon Dioxide 32 mmol/L (22-30); Chloride 96 mmol/L (98-107); Estimated CRCL calculation 112 ml/min; Estimated Glomerular Filt Rate > 60; Glucose 144 mg/dL (75-110); Magnesium 1.7 mg/dL (1.6-2.3); Phosphorus 4.1 mg/dL (2.5-4.5); Potassium 3.6 mmol/L (3.4-5.0); Sodium 134 mmol/L (137-145)
[2019-11-08 07:36] LABS: Glucose Point of Care 140 (65-105)
[2019-11-08] MEDS: PROPRANOLOL HCL 10 MG TABLET PO ×2 (08:55→20:01)
[2019-11-08] MEDS: THERAPEUTIC MULTIVITAMINS/MINERALS TAB (*BKC) 1 TABLET PO (08:55)
[2019-11-08] MEDS: ATORVASTATIN 10 MG TABLET PO (08:56)
[2019-11-08] MEDS: buPROPion HCL 75 MG TABLET PO ×3 (08:58→16:37)
[2019-11-08] MEDS: THIAMINE HCL 100 MG TABLET PO (08:58)
[2019-11-08] MEDS: FOLIC ACID 1 MG TABLET PO (08:59)
[2019-11-08] MEDS: lisinopriL 20 MG TABLET 40 MG PO (08:59)
[2019-11-08] MEDS: INSULIN DETEMIR 100 UNITS/ML 8 UNITS SUB-Q (09:01)
[2019-11-08 11:31] LABS: Glucose Point of Care 397 (65-105)
[2019-11-08] MEDS: INSULIN ASPART (*BKC) 100 UNITS/ML SUB-Q (11:40)
--- NOTE | 2019-11-08 13:09 | PM.IMPN ---
Progress Note: A&P Assessment and Plan (1) Alcohol withdrawal syndrome: Qualifiers: Complication of substance-induced condition: uncomplicated Qualified Code(s): F10.230 - Alcohol dependence with withdrawal, uncomplicated Code(s): F10.239 - Alcohol dependence with withdrawal, unspecified Status: Acute Assessment and Plan: Due to recent relapse and quitting alcohol abruptly 4 days prior to admission Symptoms include restlessness shakes and tachycardia have subsided and off precedex. will decrease librium to 50 mg q6 (2) Diabetes type 1, controlled: Qualifiers: Diabetes mellitus complication status: without complication Qualified Code(s): E10.9 - Type 1 diabetes mellitus without complications Code(s): E10.9 - Type 1 diabetes mellitus without complications Status: Chronic Assessment and Plan: resume his insulin pump this pm, at 0.6 units/hour nighttime and 1.6 units/hr daytime basal rate and 1 unit per 12 g carbohydrate consumed boluses 11/05 Levemir 8 u Q 12 hr with moderate dose SSI discontinued this pm Diabetic consistent carb diet A1 C7.3with fbs 144 today (3) Major depression, recurrent, chronic: Code(s): F33.9 - Major depressive disorder, recurrent, unspecified Status: Chronic Assessment and Plan: Continue home regimen and follow-up with SPIRITUAL ADVISOR and Dr. Garay as outpatient (4) Benign essential HTN: Code(s): I10 - Essential (primary) hypertension Status: Chronic Assessment and Plan: Continue home regimen, except hold HCTZ HORTENCIA resumed 11/06 (5) Anemia: Qualifiers: Anemia type: other cause Other causes of anemia: chronic disease, other Qualified Code(s): D63.8 - Anemia in other chronic diseases classified elsewhere Code(s): D64.9 - Anemia, unspecified Status: Acute Assessment and Plan: Suspect chronic disease due to diabetes versus marrow suppression from alcohol With platelets and white count being normal the former is more likely LFTs all normal today 11/07 (6) Abnormal liver enzymes: Code(s): R74.8 - Abnormal levels of other serum enzymes Status: Acute Assessment and Plan: Pattern is 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 44-year-old type 1 diabetic admitted 11/03 due to alcohol withdrawal caused by abrupt cessation of drinking 4 days prior to admission. 11/04 felt much better on 100 mg a Librium every 6 hours. 11/05 early AM became agitated and was hallucinating. 6mg IV Ativan plus 50mg PO Librium w/o benefit. Transferred to ICU for Precedex and weaned off with transfer out of ICU today states feels pretty good but balance is off Exam Narrative: Exam Narrative: Blood pressure 136/80 pulse is 76 saturating 100% on room air HEENT:, PERRL, NECK: No JVD CHEST: Clear to auscultation. Normal effort. HEART: NL S1/S2, regular, no murmur ABDOMEN: BS+, soft, nontender, EXTREMITIES: No cyanosis, edema, NEUROLOGIC: alert with no focal deficits. PSYCH: Alert. Oriented to person, place, but thinks it is the 15 of November confused intermittantly. Objective Data Vital Signs Vital Signs: Vital Signs - 24 hr 11/07/19 14:00 11/07/19 16:00 11/07/19 18:09 Temperature 36.6 C 36.8 C 36.0 C L Pulse Rate 102 H 105 H Pulse Rate [Monitor] Respiratory Rate 18 22 H 18 Blood Pressure 100/74 111/87 117/78 Pulse Oximetry 100 99 100 11/07/19 18:10 11/07/19 20:00 11/07/19 20:57 Temperature Pulse Rate 105 H 88 Pulse Rate [Monitor] 105 H 88 Respiratory Rate 18 Blood Pressure Pulse Oximetry 100 11/07/19 21:00 11/08/19 00:00 11/08/19 04:00 Temperature 36.7 C Pulse Rate 90 Pulse Rate [Monitor] 80 80 Respiratory Rate 15 Blood Pre
[2019-11-08 16:34] LABS: Glucose Point of Care 347 (65-105)
[2019-11-08] MEDS: CHLORDIAZEPOXIDE 25 MG CAPSULE 50 MG PO ×2 (18:16→23:02)
[2019-11-08] MEDS: ENOXAPARIN 40 MG/0.4 ML SYRINGE SUB-Q (18:16)
[2019-11-08 20:40] LABS: Glucose Point of Care 183 (65-105)
[2019-11-08 23:22] LABS: Glucose Point of Care 185 (65-105)
[2019-11-09] VITALS (10 sets, daily range): BP systolic 119–164; BP diastolic 72–88; PULSE 72–84; RESP 12–16; TEMP 35.8–36.2; O2SAT 96–100
[2019-11-09] MEDS: CHLORDIAZEPOXIDE 25 MG CAPSULE 50 MG PO (06:50)
[2019-11-09 07:01] LABS: Glucose Point of Care 214 (65-105)
[2019-11-09] MEDS: buPROPion HCL 75 MG TABLET PO ×3 (08:37→17:31)
[2019-11-09] MEDS: FOLIC ACID 1 MG TABLET PO (08:38)
[2019-11-09] MEDS: lisinopriL 20 MG TABLET 40 MG PO (08:38)
[2019-11-09] MEDS: ATORVASTATIN 10 MG TABLET PO (08:38)
[2019-11-09] MEDS: THERAPEUTIC MULTIVITAMINS/MINERALS TAB (*BKC) 1 TABLET PO (08:38)
[2019-11-09] MEDS: PROPRANOLOL HCL 10 MG TABLET PO ×2 (08:39→20:27)
[2019-11-09] MEDS: THIAMINE HCL 100 MG TABLET PO (08:39)
[2019-11-09 11:18] LABS: Glucose Point of Care 167 (65-105)
[2019-11-09] MEDS: CHLORDIAZEPOXIDE 25 MG CAPSULE PO ×3 (12:07→23:04)
--- NOTE | 2019-11-09 15:48 | PM.IMPN ---
Progress Note: A&P Assessment and Plan (1) Alcohol withdrawal syndrome: Qualifiers: Complication of substance-induced condition: uncomplicated Qualified Code(s): F10.230 - Alcohol dependence with withdrawal, uncomplicated Code(s): F10.239 - Alcohol dependence with withdrawal, unspecified Status: Acute Assessment and Plan: Due to recent relapse and quitting alcohol abruptly 4 days prior to admission Symptoms include restlessness shakes and tachycardia have subsided and off precedex. will decrease librium to 25 mg q6, and see if that will help mental status some (2) Diabetes type 1, controlled: Qualifiers: Diabetes mellitus complication status: without complication Qualified Code(s): E10.9 - Type 1 diabetes mellitus without complications Code(s): E10.9 - Type 1 diabetes mellitus without complications Status: Chronic Assessment and Plan: resumed his insulin pump 4/8 pm, at 0.6 units/hour nighttime and 1.6 units/hr daytime basal rate and 1 unit per 12 g carbohydrate consumed boluses using basal insulin per pump and close follow up with patient with SS by us or supervised boluses Diabetic consistent carb diet A1 C7.3with fbs 214 today (3) Major depression, recurrent, chronic: Code(s): F33.9 - Major depressive disorder, recurrent, unspecified Status: Chronic Assessment and Plan: Continue home regimen and follow-up with DYE LINE OPERATOR and Dr. Garay as outpatient (4) Benign essential HTN: Code(s): I10 - Essential (primary) hypertension Status: Chronic Assessment and Plan: Continue home regimen, except hold HCTZ HORTENCIA resumed 11/06 (5) Anemia: Qualifiers: Anemia type: other cause Other causes of anemia: chronic disease, other Qualified Code(s): D63.8 - Anemia in other chronic diseases classified elsewhere Code(s): D64.9 - Anemia, unspecified Status: Acute Assessment and Plan: Suspect chronic disease due to diabetes versus marrow suppression from alcohol With platelets and white count being normal the former is more likely LFTs all normal today 11/07 (6) Abnormal liver enzymes: Code(s): R74.8 - Abnormal levels of other serum enzymes Status: Acute Assessment and Plan: Pattern is consistent with 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 44-year-old type 1 diabetic admitted 11/03 due to alcohol withdrawal caused by abrupt cessation of drinking 4 days prior to admission. 11/04 felt much better on 100 mg a Librium every 6 hours. 11/05 early AM became agitated and was hallucinating. 6mg IV Ativan plus 50mg PO Librium w/o benefit. Transferred to ICU for Precedex and weaned off with transfer out of ICU today states feels pretty good but balance is better walking with PT Exam Narrative: Exam Narrative: Blood pressure 120/74 pulse is 84 saturating 96% on room air HEENT:, PERRL, NECK: No JVD CHEST: Clear to auscultation. Normal effort. HEART: NL S1/S2, regular, no murmur ABDOMEN: BS+, soft, nontender, EXTREMITIES: No cyanosis, edema, NEUROLOGIC: alert with no focal deficits. PSYCH: Alert. Oriented to person, place, and time but still inappropriate at times confused intermittantly though less so Objective Data Vital Signs Vital Signs: Vital Signs - 24 hr 11/08/19 16:40 11/08/19 19:48 11/08/19 19:49 Temperature 36.4 C Pulse Rate 89 Pulse Rate [Monitor] 88 91 Respiratory Rate 16 Blood Pressure 114/72 114/72 Pulse Oximetry 100 11/08/19 20:01 11/08/19 23:03 11/09/19 06:51 Temperature 36.2 C L Pulse Rate 89 73 Pulse Rate [Monitor] 76 Respiratory Rate 15 Blood Pressure 144/87 H 133/72 Pulse Oximetry 99 11/09/19 08:39 11/09/19 08:40
[2019-11-09 16:28] LABS: Glucose Point of Care 178 (65-105)
[2019-11-09] MEDS: ENOXAPARIN 40 MG/0.4 ML SYRINGE SUB-Q (17:31)
[2019-11-09 20:38] LABS: Glucose Point of Care 405 (65-105)
[2019-11-09 20:38] LABS: Glucose Point of Care 444 (65-105)
[2019-11-09] MEDS: INSULIN ASPART (*BKC) 100 UNITS/ML 8 UNITS SUB-Q (20:50)
[2019-11-10] VITALS (11 sets, daily range): BP systolic 138–153; BP diastolic 87–93; PULSE 67–81; RESP 14–16; TEMP 36.1–36.8; O2SAT 99–100
[2019-11-10 04:56] LABS: Glucose Point of Care 271 (65-105)
[2019-11-10] MEDS: CHLORDIAZEPOXIDE 25 MG CAPSULE PO ×2 (05:00→11:36)
[2019-11-10 05:13] LABS: Blood Urea Nitrogen 10 mg/dL (9-20); Calcium 8.9 mg/dL (8.4-10.2); Carbon Dioxide 35 mmol/L (22-30); Chloride 96 mmol/L (98-107); Estimated CRCL calculation 112 ml/min; Estimated Glomerular Filt Rate > 60; Glucose 290 mg/dL (75-110); Potassium 4.3 mmol/L (3.4-5.0); Sodium 134 mmol/L (137-145)
[2019-11-10 07:13] LABS: Glucose Point of Care 262 (65-105)
[2019-11-10] MEDS: INSULIN ASPART (*BKC) 100 UNITS/ML SUB-Q ×2 (07:17→11:36)
[2019-11-10] MEDS: THERAPEUTIC MULTIVITAMINS/MINERALS TAB (*BKC) 1 TABLET PO (08:38)
[2019-11-10] MEDS: FOLIC ACID 1 MG TABLET PO (08:38)
[2019-11-10] MEDS: ATORVASTATIN 10 MG TABLET PO (08:38)
[2019-11-10] MEDS: lisinopriL 20 MG TABLET 40 MG PO (08:38)
[2019-11-10] MEDS: PROPRANOLOL HCL 10 MG TABLET PO ×2 (08:38→20:32)
[2019-11-10] MEDS: THIAMINE HCL 100 MG TABLET PO (08:38)
[2019-11-10] MEDS: buPROPion HCL 75 MG TABLET PO ×3 (08:38→17:38)
--- NOTE | 2019-11-10 10:11 | PCNWS ---
Weekly nutritional screen. Patient is tolerating current diet with adequate intake. No weight loss reported. No nutritional needs at this time.
[2019-11-10 11:45] LABS: Glucose Point of Care 388 (65-105)
--- NOTE | 2019-11-10 14:33 | PM.IMPN ---
Progress Note: A&P Assessment and Plan (1) Alcohol withdrawal syndrome: Qualifiers: Complication of substance-induced condition: uncomplicated Qualified Code(s): F10.230 - Alcohol dependence with withdrawal, uncomplicated Code(s): F10.239 - Alcohol dependence with withdrawal, unspecified Status: Acute Assessment and Plan: Due to recent relapse and quitting alcohol abruptly 4 days prior to admission Symptoms include restlessness shakes and tachycardia have subsided and off precedex. will stop librium, and see if that will help mental status some since he is not exhibiting any signs of withdrawl other than confusion. No tachycaria or diaphoresis or agitation (2) Diabetes type 1, controlled: Qualifiers: Diabetes mellitus complication status: without complication Qualified Code(s): E10.9 - Type 1 diabetes mellitus without complications Code(s): E10.9 - Type 1 diabetes mellitus without complications Status: Chronic Assessment and Plan: resumed his insulin pump 4 pm, at 0.6 units/hour nighttime and 1.6 units/hr daytime basal rate and 1 unit per 12 g carbohydrate consumed boluses using basal insulin per pump and close follow up with patient with SS by us or supervised boluses Diabetic consistent carb diet A1 C7.3with fbs 260 today (3) Major depression, recurrent, chronic: Code(s): F33.9 - Major depressive disorder, recurrent, unspecified Status: Chronic Assessment and Plan: Continue home regimen and follow-up with SECRETARY ADMINISTRATIVE ASSISTANT and Dr. Garay as outpatient (4) Benign essential HTN: Code(s): I10 - Essential (primary) hypertension Status: Chronic Assessment and Plan: Continue home regimen, except hold HCTZ HORTENCIA resumed 11/06 (5) Anemia: Qualifiers: Anemia type: other cause Other causes of anemia: chronic disease, other Qualified Code(s): D63.8 - Anemia in other chronic diseases classified elsewhere Code(s): D64.9 - Anemia, unspecified Status: Acute Assessment and Plan: Suspect chronic disease due to diabetes versus marrow suppression from alcohol With platelets and white count being normal the former is more likely LFTs all normal today 11/07 (6) Abnormal liver enzymes: Code(s): R74.8 - Abnormal levels of other serum enzymes Status: Acute Assessment and Plan: Pattern is consistent with 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 44-year-old type 1 diabetic admitted 11/03 due to alcohol withdrawal caused by abrupt cessation of drinking 4 days prior to admission. 11/04 felt much better on 100 mg a Librium every 6 hours. 11/05 early AM became agitated and was hallucinating. 6mg IV Ativan plus 50mg PO Librium w/o benefit. Transferred to ICU for Precedex and weaned off with transfer out of ICU today states feels pretty good but balance is better walking with PT, no complaints Exam Narrative: Exam Narrative: Blood pressure 144/84 pulse is 66 saturating 96% on room air HEENT:, PERRL, NECK: No JVD CHEST: Clear to auscultation. Normal effort. HEART: NL S1/S2, regular, no murmur ABDOMEN: BS+, soft, nontender, EXTREMITIES: No cyanosis, edema, NEUROLOGIC: alert with no focal deficits. PSYCH: Alert. Oriented to person, place, and time but still inappropriate at times, wondered where his son was this am confused intermittantly though less so Objective Data Vital Signs Vital Signs: Vital Signs - 24 hr 11/09/19 16:00 11/09/19 20:10 11/09/19 20:13 Temperature 36.0 C L Pulse Rate 79 Pulse Rate [Monitor] 76 79 Respiratory Rate 16 Blood Pressure 119/75 164/88 H 164/88 H Pulse Oximetry 100 11/09/19 20:27 11/09/19 23:06 11/10/19 04:49 Temperature 36.1 C L Pul
[2019-11-10 16:51] LABS: Glucose Point of Care 289 (65-105)
[2019-11-10] MEDS: ENOXAPARIN 40 MG/0.4 ML SYRINGE SUB-Q (17:38)
[2019-11-10 22:28] LABS: Glucose Point of Care 253 (65-105)
[2019-11-11 05:07] VITALS: BP 135/71; PULSE 83; RESP 14; TEMP 36.2; O2SAT 100
[2019-11-11 05:17] VITALS: BP 135/71; PULSE 72
[2019-11-11 05:18] LABS: Glucose Point of Care 247 (65-105)
[2019-11-11 08:01] LABS: Glucose Point of Care 274 (65-105)
[2019-11-11 08:56] VITALS: PULSE 84
[2019-11-11] MEDS: PROPRANOLOL HCL 10 MG TABLET PO (08:56)
[2019-11-11] MEDS: THERAPEUTIC MULTIVITAMINS/MINERALS TAB (*BKC) 1 TABLET PO (08:56)
[2019-11-11] MEDS: FOLIC ACID 1 MG TABLET PO (08:56)
[2019-11-11 08:57] VITALS: RESP 16; O2SAT 100
[2019-11-11] MEDS: buPROPion HCL 75 MG TABLET PO ×2 (08:57→12:46)
[2019-11-11] MEDS: lisinopriL 20 MG TABLET 40 MG PO (08:57)
[2019-11-11] MEDS: ATORVASTATIN 10 MG TABLET PO (08:58)
[2019-11-11] MEDS: THIAMINE HCL 100 MG TABLET PO (08:58)
[2019-11-11] MEDS: INSULIN ASPART (*BKC) 100 UNITS/ML SUB-Q (08:59)
[2019-11-11 11:27] LABS: Glucose Point of Care 79 (65-105)
[2019-11-11 12:54] LABS: Glucose Point of Care 165 (65-105)
[2019-11-11 14:50] VITALS: BP 112/74; PULSE 87; RESP 18; TEMP 36.2; O2SAT 99
--- NOTE | 2019-11-11 17:21 | PM.DS ---
DS: Diagnosis Admitting Diagnosis Admitting Diagnosis: Alcohol dependence with withdrawal, uncomplicated Discharge Diagnosis (1) Alcohol withdrawal syndrome: Qualifiers: Complication of substance-induced condition: uncomplicated Qualified Code(s): F10.230 - Alcohol dependence with withdrawal, uncomplicated Code(s): F10.239 - Alcohol dependence with withdrawal, unspecified Status: Acute Assessment and Plan: Due to recent relapse and quitting alcohol abruptly 4 days prior to admission Symptoms include restlessness shakes and tachycardia have subsided and off precedex. stopped librium 11/09, and helped mental status some since he was not exhibiting any signs of withdrawal other than confusion. No tachycaria or diaphoresis or agitation and discharge oriented x3 and much more appropriate (2) Diabetes type 1, controlled: Qualifiers: Diabetes mellitus complication status: without complication Qualified Code(s): E10.9 - Type 1 diabetes mellitus without complications Code(s): E10.9 - Type 1 diabetes mellitus without complications Status: Chronic Assessment and Plan: resumed his insulin pump 48 pm, at 0.6 units/hour nighttime and 1.6 units/hr daytime basal rate and 1 unit per 12 g carbohydrate consumed boluses using basal insulin per pump and close follow up with patient with SS by us or supervised boluses Diabetic consistent carb diet A1 C7.3with fbs 260 today and prior to lunch his blood sugar approximately 79 (3) Major depression, recurrent, chronic: Code(s): F33.9 - Major depressive disorder, recurrent, unspecified Status: Chronic Assessment and Plan: Continue home regimen and follow-up with SENIOR NETWORK SECURITY ARCHITECT and Dr. Garay as outpatient (4) Benign essential HTN: Code(s): I10 - Essential (primary) hypertension Status: Chronic Assessment and Plan: Continue home regimen, except held HCTZ while inpatient and will resume as outpatient HORTENCIA resumed 11/06 (5) Anemia: Qualifiers: Anemia type: other cause Other causes of anemia: chronic disease, other Qualified Code(s): D63.8 - Anemia in other chronic diseases classified elsewhere Code(s): D64.9 - Anemia, unspecified Status: Acute Assessment and Plan: Suspect chronic disease due to diabetes versus marrow suppression from alcohol With platelets and white count being normal the former is more likely LFTs all normal today 11/07 (6) Abnormal liver enzymes: Code(s): R74.8 - Abnormal levels of other serum enzymes Status: Acute Assessment and Plan: Pattern is consistent with 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 Had to be sedated and managed in the ICU for the 1st 48 hours. He continued to have symptoms of intermittent confusion but his liver a.m. was rapidly tapered off without any agitation and with improvement of his mental status. S time of discharge he occasionally would be confused her say something and appropriately but pretty close to his baseline. He had been in rehab programs in the past and discussed with his encouraged him to pursue that again. Blood sugars remained fairly well controlled while here and after initial confusion with withdrawal his pump was restarted and he was able to manage that well. LFTs were initially elevated in all returned back to normal with negative hepatitis serology and sonogram showing hepatic steatosis Time Spent with Patient Time attestation: Total time spent providing and/or coordinating discharge services: 35 minutes Exam Narrative: Exam Narrative: condition on discharge blood pressure 1
== END 2019-11-11 16:15 | disposition home or self-care (01) | DRG 897 ==
LOC: ANHED 09:45 → ANHIMU 15:33 → ANHICU 11-06 15:43 → ANH3MED 11-09 00:18 → ANH2MED 11-14 09:48 → ANH3MED 11-14 09:48 → ANHICU 11-14 09:48 → ANHIMU 11-14 09:48
PROVIDERS: Internal Medicine; Admitting Provider Internal Medicine; Emergency Provider Emergency Medicine; PCP Family Medicine; Visit Provider Internal Medicine
DX: F10.239 Alcohol dependence with withdrawal, unspecified (principal); F33.9 Major depressive disorder, recurrent, unspecified; Z81.1 Family history of alcohol abuse and dependence; I10 Essential (primary) hypertension; E10.9 Type 1 diabetes mellitus without complications; Z96.41 Presence of insulin pump (external) (internal); D63.8 Anemia in other chronic diseases classified elsewhere; K70.10 Alcoholic hepatitis without ascites; F43.22 Adjustment disorder with anxiety; F41.9 Anxiety disorder, unspecified; K76.0 Fatty (change of) liver, not elsewhere classified
CPT/HCPCS: 36415; 76705; 80048; 80053; 82274; 82607; 82746; 82948; 83036; 83540; 83550; 83735; 84100; 84443; 85025; 85027; 85046; 86140; 86705; 86709; 86803; 87340; 94660; 96361; 96374; 96376; 97110; 97116; 97161; 97165; 99285; A9270; J1650; J1815; J2060; J7030; J7120

== ENCOUNTER 2022-02-04 11:24 | Outpatient (CLI) | payer OTHER, SELFPAY ==
--- NOTE | 2022-02-04 11:30 | ECG_ITS ---
Measurements Intervals [place] Rate: 81 P: 70 CT: 145 QRS: 50 QRSD: 83 T: 53 QT: 315 QTc: 366 Interpretive Statements SINUS RHYTHM BASELINE ARTIFACT- I, II, III, AVR, AVL, AVF NORMAL ECG Electronically Signed On 02-04-2022 12:10:44 CDT by Steevn Levy D.O.
[2022-02-04 12:08] LABS: Anion Gap 3 mmol/L (8-16); Blood Urea Nitrogen 11 mg/dL (9-20); Calcium 8.7 mg/dL (8.4-10.2); Carbon Dioxide 32 mmol/L (22-30); Chloride 94 mmol/L (98-107); Estimated Glomerular Filt Rate > 60; Glucose 160 mg/dL (65-110); Potassium 4.1 mmol/L (3.4-5.0); Sodium 129 mmol/L (137-145)
== END 2022-02-04 11:25 | disposition home or self-care (01) ==
LOC: ANHSURGERY 11:29
PROVIDERS: Anesthesiology; PCP Family Medicine; Visit Provider Orthopaedic Surgery
DX: E10.9 Type 1 diabetes mellitus without complications (principal); E78.5 Hyperlipidemia, unspecified
CPT/HCPCS: 36415; 80048; 93005

== ENCOUNTER 2022-02-06 00:55 | Day surgery (SDC) | payer OTHER, SELFPAY ==
[2022-02-03 08:08] VITALS: BMI 24.3
--- NOTE | 2022-02-03 08:12 | PC.NURSE ---
Report to the Outpatient Waiting Room, entrance under the green pavilion located off [facility], at time _0600_ on date _[id number]_. OR Time: _729_. - You and your visitor will be asked a series of questions to screen for COVID 19 for your protection. - Only one visitor is allowed at this time. - The patient visitor is requested to leave or wait in car when not with patient. - A mask is required within the hospital. Patients may have clear liquids (water, carbonated beverages, clear teas, apple juice) until 3 hours prior to surgery with a maximum of 20 ounces. - No food from midnight until time of surgery Take the following medications with a SIP of water the morning of surgery: __Bupropion, Fluoxetine and Naltrexone Medications to discontinue per physician None Date to take last dose Please no make-up, nail nepali, hairspray, perfume, deodorant, or body powder the day of surgery. No jewelry (including any body piercings) or valuables the day of surgery, leave them at home. Please take a shower or bath the night before, or the morning of, surgery with an antibacterial soap. Wear comfortable, loose fitting clothing. - Jewelry must be removed prior to entering the operating room. Rings and piercings that are not removed may be cut off. - The hospital will not accept responsibility for valuables. - Please leave all valuables, including medications, at home the day of surgery. If you are going home after surgery, a licensed racecar driver must drive you home. - NO public transportation without another adult. - We recommend that an adult stay with you for 24 hours following discharge. - We also recommend that you do not drive, make important decision, drink alcoholic beverages, or take any drugs that were not prescribed by your health care provider for at least 24 hours after your discharge time. Follow any additional instructions given to you from your surgeon. If you or anyone in your household have experienced Covid symptoms in the past week, please notify your surgeon or the nurse liaison at the phone number below for possible testing. Telephone instructions given to __Patient and asked if any additional questions and then verbalized understanding. Patient advised to call surgeon office or pre surgery nurse liaison [phone] if any additional questions.
--- NOTE | 2022-02-05 10:59 | WPDANESEPPF ---
Anes - Initial Pre Proc Eval Procedure: Operation Date: 02/06/22 07:30 Proposed Procedures p Left Shoulder Arthroscopic Capsular Release - Kendall Parish MD Date/Time: 02/05/22 10:59 Surgeon: Kendall Parish MD Pre Op Diagnosis: Adhesive Capsulitis Left Shoulder Patient Data Age: 46 Gender: M Height: 1.73 m Weight: 72.7 kg Allergies Allergy/AdvReac Type Severity Reaction Status Date / Time No Known Allergies Allergy Verified 02/04/22 13:01 Home Medications Medication Instructions Recorded Confirmed Type hydrochlorothiazide 25 mg tablet 25 mg PO DAILY 10/13/19 02/04/22 History lisinopril 40 mg tablet 40 mg PO DAILY 10/13/19 02/04/22 History insulin lispro 100 unit/mL See Rx Instructions .Route .COMPLEX 11/04/19 02/04/22 History subcutaneous solution (Humalog U-100 Insulin) trazodone 50 mg tablet See Rx Instructions .Route 01/27/21 02/04/22 Rx .COMPLEX #60 tabs bupropion HCl 300 mg 24 hr tablet, See Rx Instructions .Route 07/04/21 02/04/22 Rx extended release .COMPLEX #90 tabs naltrexone 50 mg tablet See Rx Instructions .Route 11/11/21 02/04/22 Rx .COMPLEX #90 tabs fluoxetine 20 mg capsule 20 mg PO DAILY #90 caps 11/27/21 02/04/22 Rx lorazepam 0.5 mg tablet (Ativan) 0.5 mg PO BID PRN anxiety #30 tabs 12/24/21 02/04/22 Rx testosterone 4 mg/24 hr 1 patch topical QPM 02/03/22 02/04/22 History transdermal 24 hour patch (Androderm) Patient hx anesthesia problems: none Family hx anesthesia problems: none Results Review: All pre-operative results and documents have been reviewed as part of the pre-operative evaluation. [facility] Past Medical History Medical History Benign essential HTN Chest wall pain following surgery Diabetes type 1, controlled Hyperlipidemia Major depression, recurrent, chronic Pneumonia Seasonal allergies Tracheal stenosis Surgical History Surgical History History of resection and anastomosis of trachea Family History Family History Father Family history of hypercholesterolemia Family history of cardiovascular disease COPD (chronic obstructive pulmonary disease) Alcoholism Mother Hypertension Social History Social History Smoking status: Never smoker Second hand tobacco smoke exposure: Yes (father) Alcohol intake: current Drinks per week: 40 Alcohol use details: Alcoholic Substance use: never Living arrangements: with family Additional living arrangements comments: Resides with spouse and 3 children, ages 5,10, and 22. 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 Informed Consent: The patient's anesthetic plan and its attendant risks and benefits were discussed with the patient/family/POA. Questions were solicited and answers provided to the satisfaction of the patient/family/POA.
[2022-02-06] VITALS (7 sets, daily range): BP systolic 112–144; BP diastolic 76–89; PULSE 67–87; RESP 12–16; TEMP 36.5; O2SAT 99–100
[2022-02-06] MEDS: ACETAMINOPHEN 500 MG TABLET 1000 MG PO (10:20)
[2022-02-06] MEDS: LACTATED RINGERS 1,000 ML 30 ML IV CONT ×2 (10:30→13:46)
[2022-02-06 10:37] LABS: Glucose Point of Care 158 mg/dl (65-105)
[2022-02-06 10:54] LABS: Anion Gap 2 mmol/L (8-16); Blood Urea Nitrogen 11 mg/dL (9-20); Calcium 8.7 mg/dL (8.4-10.2); Carbon Dioxide 31 mmol/L (22-30); Chloride 102 mmol/L (98-107); Estimated CRCL calculation 97 ml/min; Estimated Glomerular Filt Rate > 60; Glucose 153 mg/dL (65-110); Potassium 4.3 mmol/L (3.4-5.0); Sodium 135 mmol/L (137-145)
[2022-02-06] MEDS: KETOROLAC 15 MG/ML VIAL (*BKC) IV PUSH (11:08)
--- NOTE | 2022-02-06 12:06 | W.PM.PROC2 ---
Procedure Note - Detailed Date of Procedure 02/06/22 Pre-op Diagnosis Adhesive Capsulitis Left Shoulder Post-op Diagnosis Same Procedure Performed Arthroscopic capsular release left shoulder with manipulation under anesthesia. Surgeon Kendall Parish MD Loader Operator/Ground Leader Janay Kline PA-C Anesthesia General Findings Severe contracture confirmed with preoperative examination. Manipulation released significant capsular adhesions. Excellent improvement in motion. Arthroscopic release completed in the axillary pouch and posterior tissues. Rotator interval tissue excised. Description of Procedure Preoperative antibiotics were given. An interscalene block was performed. The patient was brought to the operating room, and carefully placed in the lateral decubitus position with the singh bag. The head neck were carefully positioned. 10 pounds of longitudinal traction was applied to the arm after sterile prep and drape. Examination under anesthesia revealed extreme tightness of the shoulder with marked limitation in movement. The shoulder required manipulation prior to introduction of the cannula. Inspection revealed significant capsulitis. The articular cartilage was intact. The capsule was very thickened and extremely tight. The anterior labrum was partially avulsed inferiorly. The biceps was intact. The rotator cuff appeared normal. An accessory anterosuperior cannula was created. The tissue resection device was used to remove the anterior rotator interval tissue carefully. Anterior capsule release was performed. The camera was switched to the anterior portal. The posterior capsule was then resected in a similar fashion. Particularly care was taken in the axillary pouch. The tips of the resector were always in view. At this point the glenohumeral articulation was much less stiff. The arthroscopic instruments were removed. Inspection in the subacromial bursa did not reveal any abnormal pathology or signs of impingement. Manipulation was then performed in the typical manner. Motion was greatly improved. The wounds were closed with interrupted 4-0 Monocryl suture followed by Steri-Strips. The patient was extubated and brought to recovery room in stable condition. There were no complications. Physician assistant manager, Janay Armstrong PA-C, required for surgery; including patient positioning, draping, arthroscopic camera operation, maintaining instrument position, wound closure, and dressing and sling placement. Estimated Blood Loss 5 Pathology None sent Complications No immediate complications Condition Stable Disposition PACU [facility] Billing Surgery - Charge Forward: Surgery Billing
--- NOTE | 2022-02-06 12:12 | WPDHPUPDATE1 ---
History and Physical Update Update Date/Time: 02/06/22 12:12 History and Physical has been reviewed, including an updated exam of the patient. There are NO changes in the patient's condition. Risks, benefits, and alternatives have been discussed and questions answered. Patient agrees to proceed with procedure.
[2022-02-06] MEDS: ceFAZolin 2 GM/D5W 50 ML 2 GM/50 ML BAG IVPB (12:18)
[2022-02-06] MEDS: BUPIVACAINE/EPINEPHRINE 0.25% 10 ML VIAL 20 ML INFILTRATE (13:13)
[2022-02-06 13:56] LABS: Glucose Point of Care 99 mg/dl (65-105)
== END 2022-02-06 15:22 | disposition home or self-care (01) ==
PROVIDERS: PCP Family Medicine; Visit Provider Orthopaedic Surgery
PROC: (CPT 29805; principal; 2022-02-06 11:30)
DX: M75.02 Adhesive capsulitis of left shoulder (principal); E10.9 Type 1 diabetes mellitus without complications; E78.5 Hyperlipidemia, unspecified; F33.9 Major depressive disorder, recurrent, unspecified; I10 Essential (primary) hypertension; F41.9 Anxiety disorder, unspecified; Z79.4 Long term (current) use of insulin; F10.20 Alcohol dependence, uncomplicated
CPT/HCPCS: 29825; 36415; 80048; 82948; A4565; A9270; J0690; J1100; J1170; J1885; J2250; J2370; J2405; J2704; J3010; J7120

== ENCOUNTER 2022-09-21 00:29 | Day surgery (SDC) | payer OTHER, SELFPAY ==
[2022-09-14 16:00] VITALS: BMI 22.8
--- NOTE | 2022-09-21 08:51 | WPDANESEPPF ---
Anes - Initial Pre Proc Eval Procedure: Operation Date: 09/21/22 10:00 Proposed Procedures p Screening Colonoscopy - Dhiraj Chester MD Date/Time: 09/21/22 08:51 Surgeon: Dhiraj Chester MD Pre Op Diagnosis: neoplasm screening Patient Data Age: 46 Gender: M Height: 1.73 m Weight: 63.7 kg Allergies Allergy/AdvReac Type Severity Reaction Status Date / Time No Known Allergies Allergy Verified 09/21/22 08:47 Home Medications Medication Instructions Recorded Confirmed Type hydrochlorothiazide 25 mg tablet 25 mg PO DAILY 10/13/19 09/14/22 History lisinopril 40 mg tablet 40 mg PO DAILY 10/13/19 09/14/22 History insulin lispro 100 unit/mL See Rx Instructions .Route .COMPLEX 11/04/19 09/14/22 History subcutaneous solution (Humalog U-100 Insulin) fluoxetine 20 mg capsule 20 mg PO DAILY #90 caps 11/27/21 09/14/22 Rx lorazepam 0.5 mg tablet (Ativan) 0.5 mg PO BID PRN anxiety #30 tabs 12/24/21 09/14/22 Rx testosterone 4 mg/24 hr 1 patch topical QPM 02/03/22 09/14/22 History transdermal 24 hour patch (Androderm) bupropion HCl 300 mg 24 hr tablet, 300 mg PO DAILY 09/14/22 09/14/22 History extended release trazodone 50 mg tablet 100 mg PO HS PRN Insomnia 09/14/22 09/14/22 History Patient hx anesthesia problems: none Family hx anesthesia problems: none Results Review: All pre-operative results and documents have been reviewed as part of the pre-operative evaluation. [facility] Past Medical History Medical History Benign essential HTN Chest wall pain following surgery Diabetes type 1, controlled Hyperlipidemia Major depression, recurrent, chronic Pneumonia Seasonal allergies Tracheal stenosis Surgical History Surgical History History of resection and anastomosis of trachea Family History Family History Father Family history of hypercholesterolemia Family history of cardiovascular disease COPD (chronic obstructive pulmonary disease) Alcoholism Mother Hypertension Social History Social History (Updated 07/13/22 @ 09:07 by Tristin Eduardo MA) Smoking status: Never smoker Second hand tobacco smoke exposure: Yes (father) Alcohol intake: former Drinks per week: 40 Alcohol use details: recovering alcoholic since 04/2022 Substance use: never Substance use type: does not use Lack of Transportation: No Lack of Food: Never True Current Housing: I Have Housing Concerned About Future Housing: No Difficulty Paying Gas/Electric Bills: No Difficulty Paying for Meds: No Currently Unemployed: No Education: Master's Degree or Higher Difficulty w/ Childcare or Family Care: No Living arrangements: with family Additional living arrangements comments: Resides with spouse and 3 children, ages 5,10, and 22. 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 Informed Consent: The patient's anesthetic plan and its attendant risks and benefits were discussed with the patient/family/POA. Questions were solicited and answers provided to the satisfaction of the patient/family/POA.
[2022-09-21 09:01] VITALS: BP 112/78; PULSE 110; RESP 20; TEMP 36.3; O2SAT 99
[2022-09-21] MEDS: LACTATED RINGERS 1,000 ML 150 ML IV CONT (09:03)
--- NOTE | 2022-09-21 09:10 | PM.HPGS ---
History of Present Illness History of Present Illness Consent: Risks, benefits, and alternatives have been discussed and questions answered. Patient agrees to proceed with procedure. Chief complaint: neoplasm screening Narrative: Eduard Dc is a 46 year old male here for first screening colonoscopy, also mother just recently had anal cancer Review of Systems Constitutional: Constitutional: Denies headache(s) and Denies weakness Eyes: Eyes: Denies blurry vision ENT: Reports Normal hearing present, Denies headache(s) and Denies neck pain Cardiovascular: Cardiovascular: Denies chest pain and Denies dyspnea Respiratory: Respiratory: Denies dyspnea Gastrointestinal: Gastrointestinal: Reports no additional gastrointestinal complaints Genitourinary: Genitourinary: Denies dysuria Musculoskeletal: Musculoskeletal: Denies neck pain Integumentary/Breasts: Skin/Breast: Denies dry skin Neurologic: Reports Normal hearing present, Denies headache(s) and Denies weakness Psychiatric: Psychiatric: Denies anxiety Endocrine: Endocrine: Denies change in body appearance Hematologic/Lymphatic: Hematologic/Lymphatic: Denies easy bleeding Allergic/Immunologic: Allergic/Immunologic: Denies urticaria PMFSH Past Medical History Medical History (Updated 09/21/22 @ 09:13 by Dhiraj Chester MD) Benign essential HTN Chest wall pain following surgery Colon cancer screening Diabetes type 1, controlled Hyperlipidemia Major depression, recurrent, chronic Pneumonia Seasonal allergies Tracheal stenosis Surgical History Surgical History History of resection and anastomosis of trachea Family History Family History Father Family history of hypercholesterolemia Family history of cardiovascular disease COPD (chronic obstructive pulmonary disease) Alcoholism Mother Hypertension Social History Social History (Updated 07/13/22 @ 09:07 by Tristin Eduardo MA) Smoking status: Never smoker Second hand tobacco smoke exposure: Yes (father) Alcohol intake: former Drinks per week: 40 Alcohol use details: recovering alcoholic since 04/2022 Substance use: never Substance use type: does not use Lack of Transportation: No Lack of Food: Never True Current Housing: I Have Housing Concerned About Future Housing: No Difficulty Paying Gas/Electric Bills: No Difficulty Paying for Meds: No Currently Unemployed: No Education: Master's Degree or Higher Difficulty w/ Childcare or Family Care: No Living arrangements: with family Additional living arrangements comments: Resides with spouse and 3 children, ages 5,10, and 22. 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 Gender identity (if verbalized by the patient): Male Spiritual care concerns: No Agree to blood products: Yes Meds Home Medications and Allergies Home Medications Medication Instructions Recorded Confirmed Type hydrochlorothiazide 25 mg tablet 25 mg PO DAILY 10/13/19 09/14/22 History lisinopril 40 mg tablet 40 mg PO DAILY 10/13/19 09/14/22 History insulin lispro 100 unit/mL See Rx Instructions .Route .COMPLEX 11/04/19 09/14/22 History subcutaneous solution (Humalog U-100 Insulin) fluoxetine 20 mg capsule 20 mg PO DAILY #90 caps 11/27/21 09/14/22 Rx lorazepam 0.5 mg tablet (Ativan) 0.5 mg PO BID PRN anxiety #30 tabs 12/24/21 09/14/22 Rx testosterone 4 mg/24 hr 1 patch topical QPM 02/03/22 09/14/22 History transdermal 24 hour patch (Androderm) bupropion HCl 300 mg 24 hr tablet, 300 mg PO DAILY 09/14/22 09/14/22 History extended release trazodone 50 mg tablet 100 mg PO HS PRN Insomnia 09/14/22 09/14/22 History Allergies Allergy/AdvReac Type Severity Reaction Status Date / Time No Known Allergies Allergy Verifie
[2022-09-21 09:30] VITALS: BP 111/55; PULSE 85; RESP 25; O2SAT 98
[2022-09-21 09:40] VITALS: BP 111/64; PULSE 83; RESP 20; O2SAT 100
[2022-09-21 09:46] LABS: Glucose Point of Care 147 mg/dl (65-105)
[2022-09-21 09:50] VITALS: BP 127/77; PULSE 83; RESP 21; O2SAT 100
== END 2022-09-21 10:04 | disposition home or self-care (01) ==
PROVIDERS: PCP Emergency Medicine; Visit Provider Internal Medicine Gastroenterology
PROC: 0DJD8ZZ Inspection of Lower Intestinal Tract, Via Natural or Artificial Opening Endoscopic (ICD-10-PCS; CPT 45378; principal; 2022-09-21 10:00)
DX: Z12.11 Encounter for screening for malignant neoplasm of colon (principal); D12.0 Benign neoplasm of cecum; D12.3 Benign neoplasm of transverse colon; D12.5 Benign neoplasm of sigmoid colon; K64.8 Other hemorrhoids; Z80.0 Family history of malignant neoplasm of digestive organs; I10 Essential (primary) hypertension; E10.9 Type 1 diabetes mellitus without complications; E78.5 Hyperlipidemia, unspecified
CPT/HCPCS: 45385; 82948; 88305; J2704; J7120

== ENCOUNTER 2022-11-16 05:41 | Emergency (ER) | payer OTHER, SELFPAY ==
[2022-11-16] VITALS (23 sets, daily range): BP systolic 151–173; BP diastolic 74–95; PULSE 79–100; RESP 12–22; TEMP 36.6; O2SAT 97–100
--- NOTE | ~2022-11-16 | XR_ITS ---
Portable chest x-ray Comparison: 04/24/2019 Clinical History: Chest pain Findings: Lungs are clear, without focal consolidation or pleural effusion. Cardiomediastinal silho uette is stable. Patient is status post interval median sternotomy. Bones and soft tissues are unrema rkable. Impression: Clear lungs. Reviewed, dictated and finalized at location . Impression: Clear lungs.
--- NOTE | 2022-11-16 05:46 | ECG_ITS ---
Measurements Intervals [place] Rate: 81 P: 75 [place]: 137 QRS: 44 QRSD: 87 T: 60 QT: 346 QTc: 403 Interpretive Statements SINUS RHYTHM NORMAL ELECTROCARDIOGRAM COMPARED TO ECG 02/04/2022 11:50:14 NO SIGNIFICANT CHANGES Electronically Signed On 11-16-2022 10:43:06 CDT by Monty Bolton M.D.
[2022-11-16] MEDS: SODIUM CHLORIDE 0.9% IV 2,000 ML 999 ML IV CONT (06:11)
[2022-11-16 06:19] LABS: Basophils Percent Auto 0.8 % (0.2-1.2); Eosinophils Percent Auto 0.6 % (0-4.4); Hemoglobin 15.1 g/dL (14.0-18.0); Immature Granulocyte Absolute 0.01 K/mm3 (0.00-0.031); Immature Granulocyte Percent A 0.2 % (0-0.5); Lymphocytes Absolute Auto 1.07 K/mm3 (0.9-3.2); Lymphocytes Percent Auto 21.7 % (18.3-44.2); Mean Corpuscular HGB Conc 35.1 g/dl (32-36); Mean Corpuscular Hemoglobin 32.5 pg (26-34); Mean Corpuscular Volume 92.5 fl (80-100); Mean Platelet Volume 9.3 fl (7.4-10.4); Monocytes Absolute Auto 0.7 K/mm3 (0.1-0.6); Neutrophils Absolute Auto 3.1 K/mm3 (1.3-6.7); Neutrophils Percent Auto 62.7 % (45.5-73.1); Platelet Count Result 229 k/mm3 (150-375); Red Blood Count 4.65 M/mm3 (4.6-6.20); Red Cell Distribution Width 12.5 % (11.5-14.5); White Blood Count 4.9 K/mm3 (4.5-10.0)
--- NOTE | 2022-11-16 06:22 | ED.GENADULT ---
HPI - General Adult General Chief complaint: Arrhythmia/Palpitations <Stef Rocha MD - Last Filed: 11/16/22 06:42> Stated complaint: palpitations <Stef Rocha MD - Last Filed: 11/16/22 06:42> Time Seen by Provider: 11/16/22 06:07 <Stef Rocha MD - Last Filed: 11/16/22 06:42> History of Present Illness HPI narrative: This is a 47-year-old male presenting to ED with a chief complaint of palpitations. Patient says that yesterday he was not feeling well. He had 1 episode of nausea and vomiting and decreased oral intake throughout the day. Then he was having palpitations where he could feel his heart beating in his chest and in his ears and in his wrist. He then developed a tingling sensation in his left arm. Today he woke early in the morning and had a recurrence of his palpitations and some tingling on his lower back. He is concerned that he is having a heart attack as his father had an [place] in his 40s. Patient has a history of anxiety <Stef Rocha MD - Last Filed: 11/16/22 06:42> Related Data Home medications: Home Medications Medication Instructions Recorded Confirmed hydrochlorothiazide 25 mg tablet 25 mg PO DAILY 10/13/19 09/14/22 lisinopril 40 mg tablet 40 mg PO DAILY 10/13/19 09/14/22 insulin lispro 100 unit/mL See Rx Instructions .Route .COMPLEX 11/04/19 09/14/22 subcutaneous solution (Humalog U-100 Insulin) testosterone 4 mg/24 hr 1 patch topical QPM 02/03/22 09/14/22 transdermal 24 hour patch (Androderm) bupropion HCl 300 mg 24 hr tablet, 300 mg PO DAILY 09/14/22 09/14/22 extended release trazodone 50 mg tablet 100 mg PO HS PRN Insomnia 09/14/22 09/14/22 <Stef Rocha MD - Last Filed: 11/16/22 06:42> Allergies/adverse reactions: Allergies Allergy/AdvReac Type Severity Reaction Status Date / Time No Known Allergies Allergy Verified 11/16/22 05:41 <Stef Rocha MD - Last Filed: 11/16/22 06:42> [facility]LY [facility] Past Medical History Medical History: Medical History Benign essential HTN Chest wall pain following surgery Colon cancer screening Diabetes type 1, controlled Hyperlipidemia Major depression, recurrent, chronic Pneumonia Seasonal allergies Tracheal stenosis <Stef Rocha MD - Last Filed: 11/16/22 06:42> Surgical History Surgical History: Surgical History History of resection and anastomosis of trachea <Stef Rocha MD - Last Filed: 11/16/22 06:42> Family History Family History: Family History Father Family history of hypercholesterolemia Family history of cardiovascular disease COPD (chronic obstructive pulmonary disease) Alcoholism Mother Hypertension <Stef Rocha MD - Last Filed: 11/16/22 06:42> Social History Social History: Social History Smoking status: Never smoker Second hand tobacco smoke exposure: Yes (father) Alcohol intake: former Drinks per week: 40 Alcohol use details: recovering alcoholic since 04/2022 Substance use: never Substance use type: does not use Lack of Transportation: No Lack of Food: Never True Current Housing: I Have Housing Concerned About Future Housing: No Difficulty Paying Gas/Electric Bills: No Difficulty Paying for Meds: No Currently Unemployed: No Education: Master's Degree or Higher Difficulty w/ Childcare or Family Care: No Living arrangements: with family Additional living arrangements comments: Resides with spouse and 3 children, ages 5,10, and 22. 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
[2022-11-16 06:35] LABS: Blood Urea Nitrogen 9 mg/dL (9-20); Calcium 8.8 mg/dL (8.4-10.2); Carbon Dioxide > 40 mmol/L (22-30); Chloride 81 mmol/L (98-107); Estimated CRCL calculation 104 ml/min; Estimated Glomerular Filt Rate > 60; Glucose 138 mg/dL (65-110); Magnesium 1.9 mg/dL (1.6-2.3); Potassium 2.7 mmol/L (3.4-5.0); Sodium 127 mmol/L (137-145)
[2022-11-16] MEDS: LORazepam INJ (*CRX) 2 MG/ML VIAL 1 MG IV PUSH (06:39)
[2022-11-16] MEDS: POTASSIUM CHLORIDE 20 MEQ TABLET 80 MEQ PO (06:39)
[2022-11-16 06:43] LABS: Troponin I < 0.012 ng/mL (0.000-0.034)
--- NOTE | 2022-11-16 06:45 | PC.NURSE ---
Patient given sandwhich and drink per verbal order per ERP.
[2022-11-16] MEDS: buPROPion HCL XL (24 HR) 150 MG TABCR 300 MG PO (06:47)
[2022-11-16] MEDS: hydroCHLOROthiazide 25 MG TABLET PO (06:48)
[2022-11-16] MEDS: lisinopriL 20 MG TABLET 40 MG PO (06:48)
[2022-11-16 06:56] LABS: Influenza A QL RT-PCR Negative (Negative); Influenza B QL RT-PCR Negative (Negative); RSV RNA, RT-PCR Negative (Negative); SARS-CoV-2 RNA PCR Negative
--- NOTE | 2022-11-16 07:23 | PC.NURSE ---
Patient report received from [facility]. All questions answered and care of patient accepted.
[2022-11-16 09:14] LABS: Anion Gap 2 mmol/L (8-16); Blood Urea Nitrogen 9 mg/dL (9-20); Carbon Dioxide 38 mmol/L (22-30); Chloride 87 mmol/L (98-107); Estimated CRCL calculation 104 ml/min; Estimated Glomerular Filt Rate > 60; Glucose 207 mg/dL (65-110); Potassium 3.2 mmol/L (3.4-5.0); Sodium 127 mmol/L (137-145)
[2022-11-16 09:28] LABS: Troponin I < 0.012 ng/mL (0.000-0.034)
== END 2022-11-16 10:51 | disposition home or self-care (01) ==
PROVIDERS: Emergency Medicine; Emergency Provider Emergency Medicine; PCP Emergency Medicine
DX: E87.3 Alkalosis (principal); E87.6 Hypokalemia; R11.2 Nausea with vomiting, unspecified; Z20.822 Contact with and (suspected) exposure to COVID-19; I10 Essential (primary) hypertension; E10.9 Type 1 diabetes mellitus without complications; E78.5 Hyperlipidemia, unspecified; F33.9 Major depressive disorder, recurrent, unspecified; Z87.01 Personal history of pneumonia (recurrent); Z77.22 Contact with and (suspected) exposure to environmental tobacco smoke (acute) (chronic); Z79.4 Long term (current) use of insulin
CPT/HCPCS: 36415; 71045; 80048; 83735; 84484; 85025; 87637; 93005; 96361; 96374; 99284; A9270; J2060; J7030

== ENCOUNTER 2023-03-11 08:20 | Outpatient (CLI) | payer OTHER, SELFPAY ==
--- NOTE | 2023-03-22 19:27 | WPDHOMESLEEP ---
Sleep Study - Home Unattended Date of Study: 03/11/23 Ordering Provider: Dillan Nelson PA-C Interpreting Provider: Amaya Hong, DO Home Sleep Study Type: Watch PAT Height: 1.73 m Weight: 68.946 kg Body Mass Index: 23.1 Neck Circumference (inches): 15.5 [place]: 13 Reason for Sleep Study Snoring, witnessed apneas Sleep History The patient is a 47-year-old male that had a sleep study ordered by his primary care for evaluation of sleep apnea. The patient denies awakening from sleep short of breath. He denies awakening at night with heartburn, belching or cough. He constantly snores loudly enough that others complain. He rarely has trouble sleeping when he has a cold. He frequently wakes up gasping for air throughout the night. He constantly has breathing problems at night observed by himself or others. He frequently sweats excessively at night. He rarely has heart palpitations or irregular heartbeats during the night. He frequently falls asleep during the day but never while driving. He denies sleep paralysis, cataplexy and hypnagogic / hypnopompic hallucinations. He denies having trouble at school or work due to sleepiness. He denies feeling afraid of going to sleep. He rarely has nightmares rarely remembers his dreams. He occasionally has thoughts racing through his mind. He occasionally feels sad or depressed. He frequently has anxiety. He occasionally has muscular tension. He rarely notices parts of his body jerk. He denies kicking during the night. He denies having crawling and aching feelings in his legs and denies having leg pain during night. He denies grinding his teeth during sleep but occasionally awakens with morning jaw pain. He is occasionally bothered by pain during the day but rarely awakened by pain during the night. He occasionally wakes up feeling stiff in the morning. He frequently wakes up with sore or achy muscles. He denies waking up with pain in the neck, spine or other joints. He goes to bed at 11:00 p.m. on both weekdays and weekends. He is able to fall asleep immediately. He wakes up 1-2 times throughout the night to urinate and is able to fall back asleep within a few minutes. He wakes up between 6-8 a.m. on weekdays and between 7-8 a.m. on the weekends. he typically gets 7-8 hours of sleep per night. He will stay in bed for no longer than 30 minutes after waking up in the morning. He currently lives with his and 2 children. He will consume caffeinated beverages within 2 hours of bedtime. He does not engage in physical exercise before bedtime. He will read before falling asleep. He will take naps in the afternoon of the evening but they are not refreshing. He drinks 3/4 of a gal of caffeinated beverage per day. He denies tobacco, alcohol and recreational drug use. [facility] Past Medical History Medical History Benign essential HTN Chest wall pain following surgery Colon cancer screening Diabetes type 1, controlled Hyperlipidemia Major depression, recurrent, chronic Pneumonia Seasonal allergies Tracheal stenosis Surgical History Surgical History History of resection and anastomosis of trachea Family History Family History Father Family history of hypercholesterolemia Family history of cardiovascular disease COPD (chronic obstructive pulmonary disease) Alcoholism Mother Hypertension Social History Social History Smoking status: Never smoker Second hand tobacco smoke exposure: Yes (father) Alcohol intake: former Drinks per week: 40 Alcohol use details: recovering alcoholic since 04/2022 Substance use: never Substance use type: does not use Lack of Transportation: No Lack of Food: Never True Current Housing:
[2023-03-22 19:32] VITALS: BMI 23.1
--- NOTE | 2023-05-06 14:57 | WPDSLEEPSTUD ---
Sleep Study Date of Study: 04/14/2023 Ordering Provider: Dillan Nelson PA-C Interpreting Physician: Bee Soto MD Sleep Study Type: CPAP Titration Height: 1.73 m Weight: 68.946 kg Body Mass Index: 23.1 Neck Circumference (inches): 15.5 [place]: 13 PMFSH Past Medical History Medical History Benign essential HTN Chest wall pain following surgery Colon cancer screening Diabetes type 1, controlled Hyperlipidemia Major depression, recurrent, chronic Pneumonia Seasonal allergies Tracheal stenosis Surgical History Surgical History History of resection and anastomosis of trachea Family History Family History Father Family history of hypercholesterolemia Family history of cardiovascular disease COPD (chronic obstructive pulmonary disease) Alcoholism Mother Hypertension Social History Social History Smoking status: Never smoker Second hand tobacco smoke exposure: Yes (father) Alcohol intake: former Drinks per week: 40 Alcohol use details: recovering alcoholic since 04/2022 Substance use: never Substance use type: does not use Lack of Transportation: No Lack of Food: Never True Current Housing: I Have Housing Concerned About Future Housing: No Difficulty Paying Gas/Electric Bills: No Difficulty Paying for Meds: No Currently Unemployed: No Education: Master's Degree or Higher Difficulty w/ Childcare or Family Care: No Living arrangements: with family Additional living arrangements comments: Resides with spouse and 3 children, ages 5,10, and 22. 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 Gender identity (if verbalized by the patient): Male Spiritual care concerns: No Agree to blood products: Yes Medications Home Medications Medication Instructions Recorded Confirmed Type hydrochlorothiazide 25 mg tablet 25 mg PO DAILY 10/13/19 01/04/23 History lisinopril 40 mg tablet 40 mg PO DAILY 10/13/19 01/04/23 History insulin lispro 100 unit/mL See Rx Instructions .Route .COMPLEX 11/04/19 01/04/23 History subcutaneous solution (Humalog U-100 Insulin) fluoxetine 20 mg capsule 20 mg PO DAILY #90 caps 11/27/21 01/04/23 Rx testosterone 4 mg/24 hr 1 patch topical QPM 02/03/22 01/04/23 History transdermal 24 hour patch (Androderm) bupropion HCl 300 mg 24 hr tablet, 300 mg PO DAILY 09/14/22 01/04/23 History extended release trazodone 50 mg tablet 100 mg PO HS PRN Insomnia 09/14/22 01/04/23 History lorazepam 0.5 mg tablet (Ativan) 0.5 mg PO BID PRN anxiety #30 tabs 01/04/23 01/04/23 Rx eszopiclone 2 mg tablet (Lunesta) 2 mg PO QHS PRN sleep #1 tablet 03/23/23 Rx Assessment and Plan Data The data obtained during this sleep study is adequate for interpretation. Certification This sleep study has been reviewed by a board certified sleep medicine physician.
== END 2023-03-12 09:55 | disposition home or self-care (01) ==
LOC: ANHCSM 08:22
PROVIDERS: PCP Emergency Medicine; Visit Provider Physician Assistant
DX: G47.30 Sleep apnea, unspecified (principal); G47.33 Obstructive sleep apnea (adult) (pediatric)
CPT/HCPCS: 95800

== ENCOUNTER 2023-04-14 09:15 | Outpatient (CLI) | payer OTHER, SELFPAY ==
--- NOTE | 2023-05-06 15:01 | WPDSLEEPSTUD ---
Sleep Study Date of Study: 04/14/23 Ordering Provider: Dillan Nelson PA-C Interpreting Physician: Bee Soto MD Sleep Study Type: CPAP Titration Height: 1.73 m Weight: 65.771 kg Body Mass Index: 22.0 Neck Circumference (inches): 14 [place]: 13 Reason for Sleep Study * home sleep test showing an AHI of 38.2 with desaturation to 62%, 70 central apneas with a central AHI 9.9 He presents for a CPAP titration. Sleep History Eduard Dc is a 47-year-old man who has ahome sleep test for hypersomnia, had severe OZZY with a central apnea index of 9.9. He is here for a PAP titration. He does not wake from sleep feeling from sleep short of breath.? He does not wake at night with heartburn, belching or coughing.? He constantly snores loudly enough that others complain.? He rarely has trouble sleeping when he has a cold.? He frequently wakes up gasping for air during the night. He frequently sweats excessively at night.? He rarely has heart palpitations or irregular heartbeats during the night.? He frequently falls asleep during the day but never while driving.? He denies having muscle weakness with strong emotion, feeling paralyzed on falling asleep or upon waking. He grant not have vivid dream-like scenes on waking or falling asleep. He does not have daytime difficulties due to excessive sleepiness. He is not afraid to go to sleep. He rarely has nightmares. He rarely remembers his dreams.? He occasionally has thoughts racing through his mind.??He occasionally feels sad or depressed.? He frequently has anxiety.? He occasionally has muscular tension.? He rarely notices parts of his body jerk.? He denies kicking during the night.? He denies having crawling or aching feelings in his legs and denies having leg pain during night.? He denies grinding his teeth during sleep but occasionally awakens with morning jaw pain.? He is occasionally bothered by pain during the day but rarely awakened by pain during the night.? He occasionally wakes up feeling stiff in the morning.? He frequently wakes up with sore or achy muscles.? He denies waking up with pain in the neck, spine or other joints.? Normal bedtime is 11:00 p.m., and he falls asleep immediately.? He wakes up 1-2 times throughout the night to urinate and is able to fall back asleep within a few minutes.? He wakes up between 6-8 a.m. on weekdays and between 7-8 a.m. on the weekends. He typically gets 7-8 hours of sleep per night.? He takes naps in the afternoon or evening, however a short nap lasting 10-15 minutes is not refreshing. Habits: Tobacco: none. Caffeine: He drinks 3/4 of a gallon of caffeinated beverage per day.? No alcohol or recreational substances. [facility] Past Medical History Medical History (Updated 05/06/23 @ 15:09 by Bee Soto MD) Benign essential HTN Chest wall pain following surgery Colon cancer screening Diabetes type 1, controlled Hyperlipidemia Major depression, recurrent, chronic OZZY (obstructive sleep apnea) Pneumonia Seasonal allergies Tracheal stenosis Surgical History Surgical History History of resection and anastomosis of trachea Family History Family History Father Family history of hypercholesterolemia Family history of cardiovascular disease COPD (chronic obstructive pulmonary disease) Alcoholism Mother Hypertension Social History Social History Smoking status: Never smoker Second hand tobacco smoke exposure: Yes (father) Alcohol intake: former Drinks per week: 40 Alcohol use details: recovering alcoholic since 04/2022 Substance use: never Substance use type: does not use Lack of Transportation: No Lack of Food: Never True Current Housing: I Have Housing Concerned About Future Housing: No Difficulty Paying Gas/Electric Bills: N
[2023-05-06 15:45] VITALS: BMI 22.0
== END 2023-04-15 07:01 | disposition home or self-care (01) ==
PROVIDERS: PCP Emergency Medicine; Visit Provider Physician Assistant
DX: G47.33 Obstructive sleep apnea (adult) (pediatric) (principal)
CPT/HCPCS: 95811

== ENCOUNTER 2023-08-06 21:11 | Inpatient (IN) | payer OTHER, SELFPAY ==
[2023-08-06] VITALS (9 sets, daily range): BP systolic 173–182; BP diastolic 84–90; PULSE 93–114; RESP 20–28; TEMP 37.1; O2SAT 98–100
--- NOTE | ~2023-08-06 | XR_ITS ---
Portable chest x-ray Comparison: 08/12/2023 Clinical History: Infiltrates Findings: There is hazy airspace disease in the right upper lobe, left lower lobe, possibly perihila r region. Left-sided PICC line and NG tube are in place. Cardiomediastinal silhouette is stable. Bon es and soft tissues are unremarkable. Impression: Hazy airspace disease bilaterally, as above. Correlate for pulmonary edema versus multifocal infectio n. Support tubes, as above. Reviewed, dictated and finalized at [facility]. COMMUNICATION TOWER TECHNICIAN Impression: Hazy airspace disease bilaterally, as above. Correlate for pulmonary edema vers us multifocal infection. Support tubes, as above.
--- NOTE | ~2023-08-06 | XR_ITS ---
EXAMINATION: XR chest 1V portable DATE: 08/06/2023 22:38 INDICATION: Weakness. TECHNIQUE: A single frontal view of the chest was obtained. COMPARISON: Chest single view 11/16/2022 FINDINGS: There is no pneumonia, pleural effusion, or pneumothorax. The heart size is normal. Median sternotomy wires are noted. IMPRESSION: 1. No acute cardiopulmonary disease. Reviewed, dictated and finalized at location E. POOL
--- NOTE | ~2023-08-06 | XR_ITS ---
EXAMINATION: XR abdomen gastric tube rechec DATE: 08/12/2023 12:11 INDICATION: Nasogastric tube adjustment. TECHNIQUE: An upright view of the abdomen was obtained. COMPARISON: Abdomen radiograph at 11:45 AM FINDINGS: The lower abdomen is excluded. The nasogastric tube tip is in the stomach. IMPRESSION: 1. Nasogastric tube tip in the stomach. Reviewed, dictated and finalized at location A. IVING CLERK
--- NOTE | ~2023-08-06 | XR_ITS ---
EXAMINATION: XR chest 1V portable INDICATION: Fever TECHNIQUE: Portable AP chest at 1127 hours COMPARISON: 08/06/2023 FINDINGS: There are patchy airspace opacities throughout all lung zones. No pleural effusion or pneum othorax. The heart size is normal. The Median sternotomy wires are consistent with prior cardiac surg [place]. IMPRESSION: 1. Patchy airspace opacities of the lungs, consistent with pneumonia/or pulmonary edema. Reviewed, dictated and finalized at location F. RIMENTAL BOX TESTER IMPRESSION: 1. Patchy airspace opacities of the lungs, consistent with pneumonia/or pulmona ry edema.
--- NOTE | ~2023-08-06 | XR_ITS ---
EXAMINATION: XR barium swallow modified DATE: 08/10/2023 14:03 INDICATION: Dysphagia. TECHNIQUE: The patient was given barium-containing material of multiple consistencies to swallow by t chapin speech pathologist while I performed fluoroscopy. Fluoroscopy exposure time was 1.6 minutes. The n umber of fluoroscopy images saved to the PACS was 1. Dose-area product was 1.43 Gy-cm^2. FINDINGS: There is reduced labial seal/lip tension. The patient did not always close his lips around the spoon. There is reduced laryngeal elevation, reduced tongue base retraction, and moderate to severe vallecu lar residue. There is laryngeal penetration and silent aspiration. IMPRESSION: 1. Silent aspiration. 2. Please refer to the speech therapy report for recommendations. Reviewed, dictated and finalized at location A. UETTE MACHINE OPERATOR
--- NOTE | ~2023-08-06 | CT_ITS ---
EXAMINATION: CT brain wo con DATE: 08/07/2023 05:40 INDICATION: Altered mental status. Alcohol withdrawal. TECHNIQUE: Computed tomography (CT) of the head was performed without intravenous contrast. The mA wa s adjusted according to patient size. Iterative reconstruction technique was employed. Exam dose: 13 62.00 mGy-cm total exam DLP. COMPARISON: None FINDINGS: Bilateral vertebral artery, basilar artery and bilateral carotid siphon internal carotid ar chaitanya calcifications are noted. No intracranial mass lesion or hemorrhage, midline shift or mass effect is detected. Normal ventricular size. No subdural or epidural hematoma. The mastoid air cells are normally developed and aerated. No fracture or bone destruction of the cranial vault. An endotracheal tube is present. IMPRESSION: Cerebral atherosclerosis No skull fracture or acute intracranial finding Reviewed, dictated and finalized at Location A. Reviewed, dictated and finalized at location A. T EQUIPMENT ENGINEER
--- NOTE | ~2023-08-06 | XR_ITS ---
Portable chest x-ray Comparison: 08/08/2023 Clinical History: Aspiration pneumonia Findings: There is patchy hazy bibasilar airspace disease. No pleural effusion. Cardiomediastinal s ilhouette is stable. Bones and soft tissues are unremarkable. Impression: Patchy hazy bilateral airspace disease. Correlate for pulmonary edema versus infection. Reviewed, dictated and finalized at [facility]. SEWER MACHINE Impression: Patchy hazy bilateral airspace disease. Correlate for pulmonary edema versus in fection.
--- NOTE | ~2023-08-06 | CT_ITS ---
EXAMINATION: CT brain wo con DATE: 08/12/2023 09:01 INDICATION: Encephalopathy TECHNIQUE: Computed tomography (CT) of the head was performed without intravenous contrast. The mA wa s adjusted according to patient size. Iterative reconstruction technique was employed. Exam dose: 15 13.33 mGy-cm total exam DLP. COMPARISON: 08/07/2023 CT brain FINDINGS: The examination is limited by motion artifact despite 2 sets of images. Vertebral, basilar and carotid siphon internal carotid artery calcifications are again noted. No intracranial mass lesion or hemorrhage, midline shift or mass effect is evident. Ventricular size is within normal limits. No subdural or epidural hematoma is detected. No skull fracture or bone destruction is evident. The mastoid air cells and paranasal sinuses appear normally developed and aerated. IMPRESSION: No acute intracranial finding or significant change since 08/07/2023 (other than removal o f ET tube) Reviewed, dictated and finalized at [facility]. Reviewed, dictated and finalized at location [facility]. HER ASST IMPRESSION: No acute intracranial finding or significant change since 08/07/2023 (other than removal of ET tube)
--- NOTE | ~2023-08-06 | XR_ITS ---
EXAMINATION: XR abdomen gastric tube insert DATE: 08/12/2023 12:11 INDICATION: Nasogastric tube placement. TECHNIQUE: An upright view of the abdomen was obtained. COMPARISON: None. FINDINGS: The lower abdomen is excluded. There are no dilated loops of bowel. The nasogastric tube is folded on itself in the esophagus. IMPRESSION: 1. Nasogastric tube folded on itself in the esophagus. Reviewed, dictated and finalized at location [facility]. OGIST AIDE
--- NOTE | 2023-08-06 22:29 | ECG_ITS ---
Measurements Intervals [place] Rate: 96 P: 79 [place]: 138 QRS: 47 QRSD: 98 T: 70 QT: 381 QTc: 482 Interpretive Statements SINUS RHYTHM POSSIBLE LEFT ATRIAL ENLARGEMENT BASELINE ARTIFACT- I, II, III, AVR, AVL AVF, V1-V2, V5-V6 BORDERLINE ECG COMPARED TO ECG 11/16/2022 05:50:59 NO SIGNIFICANT CHANGES Electronically Signed On 08-07-2023 8:40:47 BILINGUAL OFFICE ASSISTANT by Steven Levy D.O.
[2023-08-06] MEDS: SODIUM CHLORIDE 0.9% IV 1,000 ML 999 ML IV CONT (23:14)
[2023-08-06] MEDS: ONDANSETRON INJ 4 MG/2 ML VIAL IV PUSH (23:15)
[2023-08-06 23:16] LABS: Basophils Percent Auto 0.2 % (0.2-1.2); Eosinophils Percent Auto 0.1 % (0-4.4); Hematocrit 36.6 % (42.0-52.0); Hemoglobin 13.6 g/dL (14.0-18.0); Immature Granulocyte Absolute 0.07 K/mm3 (0.00-0.031); Immature Granulocyte Percent A 0.5 % (0-0.5); Lymphocytes Percent Auto 3.3 % (18.3-44.2); Mean Corpuscular HGB Conc 37.2 g/dl (32-36); Mean Corpuscular Hemoglobin 33.3 pg (26-34); Mean Corpuscular Volume 89.7 fl (80-100); Mean Platelet Volume 10.7 fl (7.4-10.4); Monocytes Absolute Auto 1.7 K/mm3 (0.1-0.6); Neutrophils Percent Auto 84.9 % (45.5-73.1); Platelet Count Result 224 k/mm3 (150-375); Red Blood Count 4.08 M/mm3 (4.6-6.20); Red Cell Distribution Width 10.6 % (11.5-14.5); White Blood Count 15.2 K/mm3 (4.5-10.0)
[2023-08-06] MEDS: LORazepam INJ (*CRX) 2 MG/ML VIAL 1 MG IV PUSH (23:17)
[2023-08-06 23:30] LABS: Ethanol < 10 mg/dL (<10)
[2023-08-06 23:31] LABS: INR 0.9; Partial Thromboplastin Time 28.4 SECONDS (22.3-36.8); Prothrombin Time 12.7 Seconds (11.1-14.7)
[2023-08-07] VITALS (30 sets, daily range): BP systolic 121–196; BP diastolic 43–145; PULSE 80–117; RESP 12–24; TEMP 36.7–37.6; O2SAT 91–99; BMI 22.0
[2023-08-07 00:14] LABS: Alanine Aminotransferase 89 U/L (6-50); Albumin Level 4.3 g/dL (3.5-5.1); Alkaline Phosphatase 101 U/L (38-126); Aspartate Amino Transferase 201 U/L (17-59); Bilirubin,Total 1.9 mg/dL (0.2-1.3); Blood Urea Nitrogen 19 mg/dL (9-20); Calcium 9.4 mg/dL (8.4-10.2); Carbon Dioxide > 40 mmol/L (22-30); Chloride 69 mmol/L (98-107); Estimated CRCL calculation 105 ml/min; Estimated Glomerular Filt Rate > 60; Glucose 153 mg/dL (65-110); Potassium 2.5 mmol/L (3.4-5.0); Sodium 121 mmol/L (137-145)
[2023-08-07] MEDS: THIAMINE 500 MG/NS 100 ML 500 MG/100 ML BAG 200 MG IVPB ×4 (00:14→22:23)
[2023-08-07 00:24] LABS: Appearance Urine Clear (Clear); Bacteria Urine None Seen /hpf; Bilirubin Urine Negative (Negative); Blood Urine Negative (Negative); Color Urine Yellow (Yellow); Glucose Urine UA Negative (Negative); Ketones Urine Trace mg/dL (Negative); Leukocyte Esterase Ur Negative LEU/UL (Negative); Nitrate Urine Negative (Negative); Non Pathogenic Casts 0-2; Protein Urine Trace mg/dL (Negative); RBC Urine 0-2 /hpf (0-2); Specific Grav Ur 1.011 (1.001-1.035); Squamous Epithelial Cell Urine None seen /hpf (Few); WBC Urine 0-5 /hpf
[2023-08-07 00:29] LABS: Lactic Acid Reflex 1.5 mmol/L (0.7-2.0)
--- NOTE | 2023-08-07 01:00 | ED.GENADULT ---
HPI - General Adult General Chief complaint: Alcohol Stated complaint: alcohol withdrawal Time Seen by Provider: 08/06/23 22:00 History of Present Illness HPI narrative: patient is a 47-year-old gentleman who presents emergency department chief complaint alcohol withdrawal. Patient reports last drink was around 2:00 p.m. today patient does have prior history of hospitalization for alcohol withdrawal in the past. The patient states that he was sober up until just around [place] and then started drinking heavily again patient states that feels tremulous and tachycardic Related Data Home Medications Medication Instructions Recorded Confirmed hydrochlorothiazide 25 mg tablet 25 mg PO DAILY 10/13/19 05/11/23 lisinopril 40 mg tablet 40 mg PO DAILY 10/13/19 05/11/23 insulin lispro 100 unit/mL See Rx Instructions .Route .COMPLEX 11/04/19 05/11/23 subcutaneous solution (Humalog U-100 Insulin) bupropion HCl 300 mg 24 hr tablet, 300 mg PO DAILY 09/14/22 05/11/23 extended release trazodone 50 mg tablet 100 mg PO HS PRN Insomnia 09/14/22 05/11/23 Allergies Allergy/AdvReac Type Severity Reaction Status Date / Time No Known Allergies Allergy Verified 05/11/23 14:28 Review of Systems Review of Systems: A 10 system review of systems was completed on the patient and is negative except for what is stated in the HPI. Nursing and ancillary documentation was reviewed. [facility] Past Medical History Medical History Benign essential HTN Chest wall pain following surgery Colon cancer screening Diabetes type 1, controlled Hyperlipidemia Major depression, recurrent, chronic OZZY (obstructive sleep apnea) Pneumonia Seasonal allergies Tracheal stenosis Surgical History Surgical History History of resection and anastomosis of trachea Family History Family History Father Family history of hypercholesterolemia Family history of cardiovascular disease COPD (chronic obstructive pulmonary disease) Alcoholism Mother Hypertension Social History Social History Smoking status: Never smoker Second hand tobacco smoke exposure: Yes (father) Alcohol intake: former Drinks per week: 40 Alcohol use details: recovering alcoholic since 04/2022 Substance use: never Substance use type: does not use Lack of Transportation: No Lack of Food: Never True Current Housing: I Have Housing Concerned About Future Housing: No Difficulty Paying Gas/Electric Bills: No Difficulty Paying for Meds: No Currently Unemployed: No Education: Master's Degree or Higher Difficulty w/ Childcare or Family Care: No Living arrangements: with family Additional living arrangements comments: Resides with spouse and 3 children, ages 5,10, and 22. 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 HEAD: Normocephalic, atraumatic. EYES: PERRLA and EOMI. ENT: Nares clear, no rhinorrhea or epistaxis. Mucous membranes moist. NECK: Supple. CHEST: Clear to auscultation. No respiratory distress. HEART: Regular rate and rhythm. No murmur heard. Normal peripheral pulses. ABDOMEN: Soft, nontender, nondistended, normal active bowel sounds. EXTREMITIES: Normal range of motion. No edema. SKIN: Warm, dry, no rash. NEURO: No focal deficits. Alert and oriented x3. patient is tremulous PSYCH: Normal mood and affect. Course Vital Signs Vital signs: Vital Signs Temperature 37.1 C 08/06/23 21:13 Pulse Rate 114 H 08/06/23
[2023-08-07 01:24] LABS: Add Urine Microscopic? YES
[2023-08-07] MEDS: KCL 20 MEQ/SW 100 ML 100 ML 50 MEQ IVPB ×2 (02:13→04:15)
[2023-08-07] MEDS: POTASSIUM CHLORIDE 20 MEQ PACKET (FOR LIQUID) 40 MEQ PO (02:17)
[2023-08-07] MEDS: DEXTROSE 5%/0.45% SOD CHL 1,000 ML 125 ML IV CONT (02:21)
[2023-08-07 02:44] LABS: Phosphorus 1.8 mg/dL (2.5-4.5)
--- NOTE | 2023-08-07 02:53 | ADMGEN ---
This patient, Eduard Dc, was admitted to IMU Room 211-01 @0235. Patient/family oriented to hospital policies and general routines including ID bracelet, bed and alarms, visiting hours, pain management, procedures, bathroom and other care routines, personal items, smoking policy, room service/diet, and visiting hours. Information on how to activate the Rapid Response Team has been discussed. Patient/Family are encouraged to report perceived risks to care and to ask questions if they do not understand what they are told or what they should do.
[2023-08-07] MEDS: LORazepam INJ (*CRX) 2 MG/ML VIAL IV PUSH ×4 (03:08→14:41)
[2023-08-07] MEDS: chlordiazePOXIDE (*CRX) 25 MG CAPSULE 50 MG PO (03:48)
--- NOTE | 2023-08-07 04:05 | PC.NURSE ---
patient continues to withdraw nurse called Dr. Kearns to recieve new orders. Nurse Debra QUACH put orders in.
--- NOTE | 2023-08-07 04:25 | PM.IMHP ---
H&P: HPI History of Present Illness Date/Time: 08/07/23 04:25 Chief Complaint: Alcohol withdrawal Narrative: 47-year-old male with a past medical history of insulin-dependent diabetes mellitus, essential hypertension, depression with anxiety, alcohol abuse and prior episodes of alcohol withdrawal who presented to the ER via private vehicle with alcohol withdrawal. The patient reported nursing staff that he drink up to a handle of hard liquor day. His reported the patient went to work and then went out to have a drink with some friends. Was last drink was in the afternoon. When he came home he was altered confused having tremors diaphoresis and anxiety. The patient's alcohol level on arrival to the ER was less than 10. In the ER the patient's CIWA score was 10. Bedtime the patient arrived the IMU the patient's CIWA score was 15. The patient did was not a candidate for additional Ativan according to the orders as they stood. I was contacted and the patient was given orders for Librium and Ativan dosings were adjusted. The patient was having snoring respirations with Ativan administration. Patient markedly tremulous diaphoretic and increasing agitation. Restraints were placed. The patient's CIWA score increased to 24. I can down to evaluate the patient and found the patient with unequal pupils and nystagmus. The patient had not had a CT scan performed in the ER. Patient was given additional 2 mg of IV Ativan for a total of 4 mg and a approximately 1 hour interval. After the 2nd dose of Ativan the patient agitation settled significantly. Patient was still having snoring respirations and a nasal trumpet was placed in place was placed on capnography. After repeat Ativan dosing the patient's pupils had normalized and he had no further nystagmus. Patient was incontinent of urine and Saucedo catheter was placed. Patient does have a history of prior intubations due to alcohol withdrawal seizures. His innovation 2017 resulted in him having tracheal stenosis which then later had to be surgically corrected. The patient had been in recovery and remained sober up until just before . The patient was not unable to provide any of this history S the her all information was obtained from review of past medical records and ER report. Review of Systems Review of Systems: ROS unobtainable: Yes unobtainable due to medical condition (Alcohol withdrawal) [facility] Past Medical History Medical History (Updated 08/07/23 @ 06:18 by Landy Kearns DO) Alcoholism Benign essential HTN Chest wall pain following surgery Colon cancer screening Diabetes type 1, controlled Hyperlipidemia Major depression, recurrent, chronic OZZY (obstructive sleep apnea) Pneumonia Seasonal allergies Tracheal stenosis Surgical History Surgical History History of resection and anastomosis of trachea Family History Family History Father Family history of hypercholesterolemia Family history of cardiovascular disease COPD (chronic obstructive pulmonary disease) Alcoholism Mother Hypertension Social History Social History Smoking status: Never smoker Second hand tobacco smoke exposure: Yes (father) Alcohol intake: current Drinks per week: 6 Alcohol use details: recovering alcoholic since 04/2022 Substance use: never Substance use type: does not use Do You Feel Safe in your Home?: Yes Lack of Transportation: No Lack of Food: Never True Current Housing: I Have Housing Concerned About Future Housing: No Difficulty Paying Gas/Electric Bills: No Difficulty Paying for Meds: No Currently Unemployed: No Education: Master's Degree or Higher Difficulty w/ Childcare or Family Care: No Living arrangements: with family Additional living arrangements comments:
[2023-08-07 06:07] LABS: Glucose Point of Care 109 mg/dl (65-105)
[2023-08-07] MEDS: POTASSIUM PHOS,M-BASIC-D-BASIC 40 MMOL in SODIUM CHLORIDE 0.9% IV 250 ML 43.89 MMOL IVPB (06:22)
--- NOTE | 2023-08-07 06:26 | PC.NURSE ---
Received call from Nurse Shilo that patient was very agitated and she had just given IV push Ativan but it didn't seem to be helping. Suggested waiting 15 minutes to make sure the medicine had a chance to fully go into effect. When calling to check to see how patient was this nurse was informed most of IMU staff were in his room. Patient had become so restless he needed restraints to stop pulling off color television console monitor or pull at IVs. On assessment patient had severe tremors, was diaphoretic, talking to people that were not there and eating imaginary food. This patient would make eye contact and attempt conversation and then stare into space. Repeatedly trying to sit up and put legs over rails. Patient needing constant redirection; CIWA 24. Patienmt had one episode of incontinence. Dr Kearns was called and on her assessment the patient was still restless and had unequal pupils. 2 more milligrams of Ativan were given, one milligram at a time, and patient was taken to CT scan to rule out brain bleed. Doctor Kearns also is considering seizures; pupils are now equal after period of nystagmus-like movement. Moved to ICU due to strong potential for intubation if continued seizures or precedex for continued agitation. Of note, patient has history of intubation with alcohol withdrawal.
[2023-08-07 06:50] LABS: Barbiturate Screen Urine Negative (Negative); Benzodiazepines Screen Urine Negative (Negative)
[2023-08-07 06:53] LABS: Cannabinoid Screen Urine Negative (Negative); Cocaine Screen Urine Negative (Negative); Methadone Screen Urine Negative (Negative); Opiate Screen Urine Negative (Negative); Phencyclidine Screen Urine Negative (Negative)
[2023-08-07 06:56] LABS: Eosinophils Percent Auto 0.1 % (0-4.4); Hematocrit 32.7 % (42.0-52.0); Immature Granulocyte Absolute 0.03 K/mm3 (0.00-0.031); Immature Granulocyte Percent A 0.3 % (0-0.5); Lymphocytes Absolute Auto 0.64 K/mm3 (0.9-3.2); Mean Corpuscular HGB Conc 36.7 g/dl (32-36); Mean Corpuscular Hemoglobin 33.6 pg (26-34); Mean Corpuscular Volume 91.6 fl (80-100); Mean Platelet Volume 10.2 fl (7.4-10.4); Monocytes Percent Auto 10.8 % (2.6-8.5); Neutrophils Absolute Auto 7.5 K/mm3 (1.3-6.7); Neutrophils Percent Auto 81.8 % (45.5-73.1); Platelet Count Result 198 k/mm3 (150-375); Red Blood Count 3.57 M/mm3 (4.6-6.20); Red Cell Distribution Width 10.4 % (11.5-14.5); White Blood Count 9.1 K/mm3 (4.5-10.0)
[2023-08-07 07:03] LABS: Glucose Point of Care 179 mg/dl (65-105)
--- NOTE | 2023-08-07 07:13 | PC.NURSE ---
nurse called Pilar to make aware patient was moved to ICU 9.
--- NOTE | 2023-08-07 07:14 | PC.NURSE ---
This patient, Eduard Dc, was transferred to [9 ] on 08/07/23 at 0500. Personal belongings sent with patient. Report given to [Felicia QUACH ]. Appropriate documentation sent with patient.
[2023-08-07 07:16] LABS: Alanine Aminotransferase 75 U/L (6-50); Albumin Level 3.5 g/dL (3.5-5.1); Alkaline Phosphatase 82 U/L (38-126); Aspartate Amino Transferase 146 U/L (17-59); Bilirubin,Total 1.5 mg/dL (0.2-1.3); Blood Urea Nitrogen 14 mg/dL (9-20); Carbon Dioxide > 40 mmol/L (22-30); Chloride 79 mmol/L (98-107); Creatine Kinase 356 U/L (55-170); Estimated CRCL calculation 117 ml/min; Estimated Glomerular Filt Rate > 60; Glucose 157 mg/dL (65-110); Potassium 2.8 mmol/L (3.4-5.0); Sodium 124 mmol/L (137-145)
[2023-08-07 07:41] LABS: Amphetamine Screen Urine Negative (Negative)
[2023-08-07] MEDS: SODIUM CHLORIDE 0.9% IV 1,000 ML 100 ML IV CONT (09:41)
[2023-08-07 10:26] LABS: Anion Gap 8 mmol/L (8-16); Blood Urea Nitrogen 13 mg/dL (9-20); Calcium 8.2 mg/dL (8.4-10.2); Carbon Dioxide 38 mmol/L (22-30); Chloride 79 mmol/L (98-107); Estimated CRCL calculation 102 ml/min; Estimated Glomerular Filt Rate > 60; Glucose 197 mg/dL (65-110); Magnesium 1.9 mg/dL (1.6-2.3); Potassium 3.2 mmol/L (3.4-5.0); Sodium 125 mmol/L (137-145)
[2023-08-07 11:45] LABS: Ammonia < 9 umol/L (9-30)
[2023-08-07 11:54] LABS: Glucose Point of Care 208 mg/dl (65-105)
[2023-08-07] MEDS: INSULIN ASPART (*BKC) 100 UNITS/ML SUB-Q ×2 (12:57→17:35)
[2023-08-07 15:01] LABS: Alanine Aminotransferase 73 U/L (6-50); Albumin Level 3.8 g/dL (3.5-5.1); Alkaline Phosphatase 82 U/L (38-126); Anion Gap 9 mmol/L (8-16); Aspartate Amino Transferase 126 U/L (17-59); Bilirubin,Total 1.3 mg/dL (0.2-1.3); Blood Urea Nitrogen 15 mg/dL (9-20); Calcium 8.1 mg/dL (8.4-10.2); Carbon Dioxide 37 mmol/L (22-30); Chloride 82 mmol/L (98-107); Estimated CRCL calculation 102 ml/min; Estimated Glomerular Filt Rate > 60; Glucose 205 mg/dL (65-110); Phosphorus 2.8 mg/dL (2.5-4.5); Potassium 2.9 mmol/L (3.4-5.0); Sodium 128 mmol/L (137-145)
[2023-08-07] MEDS: POTASSIUM CHLORIDE INJ 40 MEQ in SODIUM CHLORIDE 0.9% IV 500 ML 130 MEQ IVPB (15:39)
--- NOTE | 2023-08-07 17:25 | PM.IMPN ---
Progress Note: A&P Assessment and Plan (1) Alcohol withdrawal seizure with delirium: Code(s): F10.931 - Alcohol use, unspecified with withdrawal delirium; R56.9 - Unspecified convulsions Status: Acute Assessment and Plan: The patient experiencing acute alcohol withdrawal complicated by seizure.? The patient was evaluated while in IMU.? Patient was witnessed to have 2 separate episodes that appeared to be seizure-like in nature with associated nystagmus and unequal pupils.? CT of the head showing no acute findings. Was having snoring respirations and concerning for impending respiratory failure so nasal trumpet was placed Capnography was applied and normal. Ammonia <9 Stop wellbutrin. Not receiving Librium because too obtunded. Consider Precedex Continue to control his withdrawal symptoms. (2) Hypokalemia: Code(s): E87.6 - Hypokalemia Status: Acute Assessment and Plan: Potassium low again this morning. Continue to replace. Follow levels. Magnesium 2.0. (3) Acute alcoholic hepatitis: Code(s): K70.10 - Alcoholic hepatitis without ascites Status: Acute Assessment and Plan: AST and ALT are mildly elevated on admission. They are trending downward. [place] related to acute alcoholic hepatitis. Check hepatitis pain (4) Hyponatremia: Code(s): E87.1 - Hypo-osmolality and hyponatremia Status: Acute Assessment and Plan: Patient does have hyponatremia likely due to chronic alcoholism.? This is been noted in the past. Sodium 121 on admission. Sodium has climbed to 128. Will decrease sodium load and changed to D5 half normal. Continue serial Na levels. (5) Diabetes type 1, controlled: Qualifiers: Diabetes mellitus complication status: without complication Qualified Code(s): E10.9 - Type 1 diabetes mellitus without complications Code(s): E10.9 - Type 1 diabetes mellitus without complications Status: Chronic Assessment and Plan: The patient's blood glucose was reviewed on 08/07 Glucose mildly elevated. He is Type I on an insulin pump. Continue AccuCheks covering with sliding scale. Hypoglycemia protocol available as needed. No evidence of DKA Add low dose Lantus (6) Benign essential HTN: Code(s): I10 - Essential (primary) hypertension Status: Chronic Assessment and Plan: Patient's blood pressure was reviewed on 08/07 Blood pressure remains mildly elevated. Will continue to monitor (7) Alcoholism: Code(s): F10.20 - Alcohol dependence, uncomplicated Status: Acute Assessment and Plan: Patient will need to be educated about the benefits of abstaining from alcohol use once he is more awake and alert (8) OZZY (obstructive sleep apnea): Code(s): G47.33 - Obstructive sleep apnea (adult) (pediatric) Status: Acute Assessment and Plan: Patient has a history of sleep apnea. Resume CPAP when he is more awake alert Plan DVT prophylaxis -SCDs Code status -full Subjective Date/time seen: 08/07/23 1030 Interval history: 47yo male with DM, HTN, OZZY and alcoholism here for altered mental status from alcohol withdrawal. Patient responds and mumbles a few words but unable to provide history Review of Systems Review of Systems: ROS unobtainable: Yes unobtainable due to mental status Exam Narrative: AF 99.0 158/90 98 20 94% 2L Gen - NARD HEENT - PERRL, nasal trumpet in place. Chest - Clear to quiet respirations. CV - RRR S1/S2. Tele showing no significant dysrhythmias Abd - Soft, NT/ND, Positive BS - Saucedo secured draining clear yellow urine Ext - No pedal edema Neuro - obtunded. arouses and mumbled speech. No Psych - unable to assess Skin - Warm and dry Objective Data Vital Signs Vital Signs: Vital Signs - 24 hr 08/06/23 21:13 08/06/23 22:01 08/06/23 22:02 Temperature 98.7 F Pulse Rate 114 H 95 95 Re
[2023-08-07 17:35] LABS: Glucose Point of Care 234 mg/dl (65-105)
[2023-08-07] MEDS: DEXTROSE 5%/0.45% SOD CHL 1,000 ML 100 ML IV CONT (18:38)
[2023-08-07] MEDS: LORazepam INJ (*CRX) 2 MG/ML VIAL 4 MG IV PUSH (19:02)
[2023-08-07 20:57] LABS: Creatinine Urine 38.3 mg/dL
[2023-08-07 20:59] LABS: Sodium Urine Random 158 meq/L
[2023-08-07 21:02] LABS: Alveolar/Arterial O2 Gradient 59.5 mmHg; Base Excess ABG 8.6 mEq/l (+/-2.0); Fractional Inspired Oxygen 28 %; HCO3 ABG 34.6 mEq/l (22.0-26.0); Modified Allen's Test Pass; Oxygen Saturation ABG 95.6 % (95.0-100.0); Oxyhemoglobin 94.8 % THb (90.0-100.0); PCO2 ABG 52.9 mmHg (35.0-45.0); PO2 ABG 77.7 mmHg (80.0-100.0); PO2 FiO2 Ratio Arterial Blood 2.77 %; Site Drawn LEFT RADIAL; Total Hemoglobin 13.5 g/dL (12.0-18.0); pH ABG 7.433 (7.350-7.450)
[2023-08-07 21:03] LABS: Device NASAL CANNULA
[2023-08-07 22:19] LABS: Glucose Point of Care 232 mg/dl (65-105)
[2023-08-07] MEDS: INSULIN GLARGINE (*BKC) 100 UNITS/ML 8 UNITS SUB-Q (22:24)
[2023-08-08] VITALS (23 sets, daily range): BP systolic 113–191; BP diastolic 87–108; PULSE 93–125; RESP 17–34; TEMP 36.4–38; O2SAT 91–100
[2023-08-08 00:06] LABS: Anion Gap 4 mmol/L (8-16); Blood Urea Nitrogen 11 mg/dL (9-20); Calcium 7.5 mg/dL (8.4-10.2); Carbon Dioxide 36 mmol/L (22-30); Chloride 87 mmol/L (98-107); Estimated CRCL calculation 138 ml/min; Estimated Glomerular Filt Rate > 60; Glucose 232 mg/dL (65-110); Potassium 3.2 mmol/L (3.4-5.0); Sodium 127 mmol/L (137-145)
[2023-08-08 00:06] LABS: Glucose Point of Care 237 mg/dl (65-105)
[2023-08-08] MEDS: INSULIN ASPART (*BKC) 100 UNITS/ML SUB-Q ×2 (00:06→17:53)
[2023-08-08] MEDS: chlordiazePOXIDE (*CRX) 25 MG CAPSULE 50 MG PO (00:06)
[2023-08-08 01:11] LABS: Hepatitis B Surface Antigen Negative (Negative)
[2023-08-08 01:39] LABS: HAV RESULT Negative (Negative); Hepatitis B Core IgM Result Negative (Negative); Hepatitis C Virus Antibody Negative (Negative)
[2023-08-08] MEDS: LORazepam INJ (*CRX) 2 MG/ML VIAL 4 MG IV PUSH (02:40)
[2023-08-08] MEDS: POTASSIUM PHOS,M-BASIC-D-BASIC 40 MMOL in SODIUM CHLORIDE 0.9% IV 250 ML 43.89 MMOL IVPB ×2 (02:40→15:06)
[2023-08-08 04:36] LABS: Basophils Percent Auto 0.2 % (0.2-1.2); Eosinophils Percent Auto 0.2 % (0-4.4); Hematocrit 36.1 % (42.0-52.0); Hemoglobin 12.4 g/dL (14.0-18.0); Immature Granulocyte Absolute 0.04 K/mm3 (0.00-0.031); Immature Granulocyte Percent A 0.3 % (0-0.5); Lymphocytes Absolute Auto 1.02 K/mm3 (0.9-3.2); Lymphocytes Percent Auto 8.5 % (18.3-44.2); Mean Corpuscular HGB Conc 34.3 g/dl (32-36); Mean Corpuscular Hemoglobin 32.7 pg (26-34); Mean Corpuscular Volume 95.3 fl (80-100); Mean Platelet Volume 9.5 fl (7.4-10.4); Monocytes Absolute Auto 1.4 K/mm3 (0.1-0.6); Monocytes Percent Auto 11.9 % (2.6-8.5); Neutrophils Absolute Auto 9.5 K/mm3 (1.3-6.7); Neutrophils Percent Auto 78.9 % (45.5-73.1); Platelet Count Result 231 k/mm3 (150-375); Red Blood Count 3.79 M/mm3 (4.6-6.20); Red Cell Distribution Width 10.5 % (11.5-14.5)
[2023-08-08 04:41] LABS: Sodium 129 mmol/L (137-145)
[2023-08-08 05:13] LABS: Thyroid Stimulating Hormone Reflex 0.372 uIU/mL (0.465-4.68)
[2023-08-08] MEDS: DEXTROSE 5%/0.45% SOD CHL 1,000 ML 100 ML IV CONT ×2 (06:03→17:50)
[2023-08-08] MEDS: THIAMINE 500 MG/NS 100 ML 500 MG/100 ML BAG 200 MG IVPB ×3 (06:04→21:47)
[2023-08-08 06:45] LABS: Glucose Point of Care 102 mg/dl (65-105)
[2023-08-08 07:34] LABS: Total Triiodothyronine (T3) 1.35 NG/ML (0.97-1.69)
[2023-08-08 08:56] LABS: Alanine Aminotransferase 69 U/L (6-50); Albumin Level 4.1 g/dL (3.5-5.1); Alkaline Phosphatase 86 U/L (38-126); Aspartate Amino Transferase 87 U/L (17-59); Bilirubin,Total 1.3 mg/dL (0.2-1.3); Blood Urea Nitrogen 8 mg/dL (9-20); Calcium 7.8 mg/dL (8.4-10.2); Carbon Dioxide > 40 mmol/L (22-30); Chloride 86 mmol/L (98-107); Estimated CRCL calculation 143 ml/min; Estimated Glomerular Filt Rate > 60; Glucose 142 mg/dL (65-110); Phosphorus 3.5 mg/dL (2.5-4.5); Potassium 3.4 mmol/L (3.4-5.0); Sodium 132 mmol/L (137-145)
--- NOTE | 2023-08-08 09:57 | PM.IMPN ---
Progress Note: A&P Assessment and Plan (1) Alcohol withdrawal seizure with delirium: Code(s): F10.931 - Alcohol use, unspecified with withdrawal delirium; R56.9 - Unspecified convulsions Status: Acute Assessment and Plan: The patient experiencing acute alcohol withdrawal complicated by seizure. In IMU, pt had 2 separate witnessed episodes of seizure-like activity with associated nystagmus and unequal pupils.? CT of the head showing no acute findings. Was having snoring respirations and concerning for impending respiratory failure so nasal trumpet was placed but now removed Capnography was applied and normal. Ammonia <9. Wellbutrin stopped. Receiving Librium sporadically because too obtunded. Able to protect his airway but ABG 7.43/53/78 on 2L. Continue thiamine Continue to control his withdrawal symptoms. Stop higher dose Ativan and limit lower dose Ativan Back down on Librium. Repeat ABG. Check CXR given low grade temp (2) Hypokalemia: Code(s): E87.6 - Hypokalemia Status: Acute Assessment and Plan: Potassium was low and replaced. Magnesium 2.0. Follow levels and replace. (3) Acute alcoholic hepatitis: Code(s): K70.10 - Alcoholic hepatitis without ascites Status: Acute Assessment and Plan: AST and ALT were mildly elevated on admission. They are trending downward now. Hepatitis panel negative [place] related to acute alcoholic hepatitis. Follow (4) Hyponatremia: Code(s): E87.1 - Hypo-osmolality and hyponatremia Status: Acute Assessment and Plan: Patient does have hyponatremia likely due to chronic alcoholism.? This is been noted in the past. Sodium 121 on admission. Sodium climbed to 127 in 24hours. Now up to 132 in 32 hours Will change to D5W for a few hours to temper the rise. Continue serial Na levels. (5) Diabetes type 1, controlled: Qualifiers: Diabetes mellitus complication status: without complication Qualified Code(s): E10.9 - Type 1 diabetes mellitus without complications Code(s): E10.9 - Type 1 diabetes mellitus without complications Status: Chronic Assessment and Plan: The patient's blood glucose was reviewed on 08/08 Glucose was mildly elevated. He is Type I on an insulin pump. Continue AccuCheks covering with sliding scale. Hypoglycemia protocol available as needed. No evidence of DKA Continue low dose Lantus but lower the dose (6) Benign essential HTN: Code(s): I10 - Essential (primary) hypertension Status: Chronic Assessment and Plan: Patient's blood pressure was reviewed on 08/08 Blood pressure remains elevated. Will continue to monitor (7) Alcoholism: Code(s): F10.20 - Alcohol dependence, uncomplicated Status: Acute Assessment and Plan: Patient will need to be educated about the benefits of abstaining from alcohol use once he is more awake and alert (8) OZZY (obstructive sleep apnea): Code(s): G47.33 - Obstructive sleep apnea (adult) (pediatric) Status: Acute Assessment and Plan: Patient has a history of sleep apnea. Resume CPAP when he is more awake and alert Plan DVT prophylaxis -SCDs Code status -full Subjective Date/time seen: 08/08/23 09:57 Interval history: 47yo male with DM, HTN, OZZY and alcoholism here for altered mental status from alcohol withdrawal. No change overnight. Has a gag with suctioning. Wakes up on occasion. Review of Systems Review of Systems: ROS unobtainable: Yes unobtainable due to mental status Exam Narrative: Tm 100.4 99.3 166/94 118 26 91% 2L Gen - tachypneic with snoring respirations. HEENT - PERRL Chest - coarse BS. CV - Tachycardic, regular. Tele showing no significant dysrhythmias Abd - Soft, no apparent tenderness, +BS - Saucedo secured draining clear yellow urine Ext - No pedal edema Neuro - obtunded. arouses but nonverbal. s
[2023-08-08] MEDS: DEXTROSE 5% 1,000 ML 1,000 ML 100 ML IV CONT (10:47)
[2023-08-08] MEDS: LORazepam INJ (*CRX) 2 MG/ML VIAL IV PUSH ×3 (10:53→20:47)
[2023-08-08 11:05] LABS: Base Excess ABG 8.2 mEq/l (+/-2.0); Fractional Inspired Oxygen 32 %; HCO3 ABG 36.1 mEq/l (22.0-26.0); Oxygen Content ABG 18.7 %vol (16.0-22.0); Oxygen Saturation ABG 91.4 % (95.0-100.0); Oxyhemoglobin 91.8 % THb (90.0-100.0); PO2 FiO2 Ratio Arterial Blood 2.03 %; Total Hemoglobin 14.5 g/dL (12.0-18.0); pH ABG 7.362 (7.350-7.450)
[2023-08-08 11:08] LABS: Modified Allen's Test Pass; PCO2 ABG 65.1 mmHg (35.0-45.0); Site Drawn RIGHT RADIAL
[2023-08-08 11:09] LABS: Device NASAL CANNULA
[2023-08-08] MEDS: hydrALAZINE HCL 20 MG/ML VIAL 10 MG IV PUSH (12:44)
[2023-08-08 13:08] LABS: Glucose Point of Care 183 mg/dl (65-105)
[2023-08-08 14:02] LABS: Anion Gap 8 mmol/L (8-16); Blood Urea Nitrogen 7 mg/dL (9-20); Calcium 7.8 mg/dL (8.4-10.2); Carbon Dioxide 38 mmol/L (22-30); Chloride 84 mmol/L (98-107); Estimated CRCL calculation 143 ml/min; Estimated Glomerular Filt Rate > 60; Glucose 192 mg/dL (65-110); Magnesium 1.6 mg/dL (1.6-2.3); Phosphorus 1.5 mg/dL (2.5-4.5); Sodium 130 mmol/L (137-145)
[2023-08-08 17:48] LABS: Glucose Point of Care 228 mg/dl (65-105)
[2023-08-08 20:18] LABS: Sodium 129 mmol/L (137-145)
[2023-08-08] MEDS: INSULIN GLARGINE (*BKC) 100 UNITS/ML 6 UNITS SUB-Q (21:22)
[2023-08-09] VITALS (19 sets, daily range): BP systolic 153–197; BP diastolic 91–136; PULSE 113–138; RESP 19–39; TEMP 37.1–38.1; O2SAT 94–100
[2023-08-09 00:13] LABS: Glucose Point of Care 252 mg/dl (65-105)
[2023-08-09] MEDS: chlordiazePOXIDE (*CRX) 25 MG CAPSULE PO (00:20)
[2023-08-09] MEDS: INSULIN ASPART (*BKC) 100 UNITS/ML SUB-Q ×5 (00:25→23:55)
[2023-08-09 02:09] LABS: Sodium 126 mmol/L (137-145)
[2023-08-09] MEDS: LORazepam INJ (*CRX) 2 MG/ML VIAL IV PUSH (03:32)
[2023-08-09] MEDS: DEXTROSE 5%/0.45% SOD CHL 1,000 ML 100 ML IV CONT (03:43)
[2023-08-09 04:16] LABS: Basophils Percent Auto 0.4 % (0.2-1.2); Eosinophils Percent Auto 0.1 % (0-4.4); Hematocrit 42.4 % (42.0-52.0); Hemoglobin 14.9 g/dL (14.0-18.0); Immature Granulocyte Absolute 0.02 K/mm3 (0.00-0.031); Immature Granulocyte Percent A 0.2 % (0-0.5); Lymphocytes Absolute Auto 0.63 K/mm3 (0.9-3.2); Lymphocytes Percent Auto 6.9 % (18.3-44.2); Mean Corpuscular HGB Conc 35.1 g/dl (32-36); Mean Corpuscular Hemoglobin 32.6 pg (26-34); Mean Corpuscular Volume 92.8 fl (80-100); Mean Platelet Volume 9.1 fl (7.4-10.4); Monocytes Absolute Auto 1.7 K/mm3 (0.1-0.6); Monocytes Percent Auto 19.2 % (2.6-8.5); Neutrophils Absolute Auto 6.6 K/mm3 (1.3-6.7); Neutrophils Percent Auto 73.2 % (45.5-73.1); Platelet Count Result 305 k/mm3 (150-375); Red Blood Count 4.57 M/mm3 (4.6-6.20); Red Cell Distribution Width 10.6 % (11.5-14.5); White Blood Count 9.1 K/mm3 (4.5-10.0)
[2023-08-09 04:35] LABS: Alanine Aminotransferase 54 U/L (6-50); Albumin Level 3.8 g/dL (3.5-5.1); Alkaline Phosphatase 83 U/L (38-126); Anion Gap 8 mmol/L (8-16); Aspartate Amino Transferase 56 U/L (17-59); Bilirubin,Total 1.5 mg/dL (0.2-1.3); Blood Urea Nitrogen 7 mg/dL (9-20); Calcium 7.8 mg/dL (8.4-10.2); Carbon Dioxide 32 mmol/L (22-30); Chloride 87 mmol/L (98-107); Estimated CRCL calculation 147 ml/min; Estimated Glomerular Filt Rate > 60; Glucose 215 mg/dL (65-110); Magnesium 1.9 mg/dL (1.6-2.3); Potassium 3.1 mmol/L (3.4-5.0); Sodium 127 mmol/L (137-145)
[2023-08-09 05:41] LABS: Glucose Point of Care 222 mg/dl (65-105)
[2023-08-09] MEDS: THIAMINE 500 MG/NS 100 ML 500 MG/100 ML BAG 200 MG IVPB ×3 (05:47→21:39)
[2023-08-09] MEDS: DEXTROSE 5%/0.9% SOD CHL 1,000 ML 70 ML IV CONT ×2 (08:03→23:50)
[2023-08-09] MEDS: AMPICILLIN SULB 3 GM/NS 100 ML 3 GM/100 ML VIAL IVPB ×4 (08:04→23:54)
[2023-08-09] MEDS: KCL 20 MEQ/SW 100 ML 100 ML 50 MEQ IVPB (08:12)
[2023-08-09 08:28] LABS: NT Pro B Type Natriuretic Pept 3270 pg/mL (19.9-100)
[2023-08-09] MEDS: VANCOMYCIN 1,750 MG/NS 500 ML 1,750 MG/500 ML BAG 250 MG IVPB (09:21)
[2023-08-09 10:40] LABS: MRSA (PCR) NOT DETECTED (NOT DETECTE)
--- NOTE | 2023-08-09 11:14 | PM.IMPN ---
Progress Note: A&P Assessment and Plan (1) Alcohol withdrawal seizure with delirium: Code(s): F10.931 - Alcohol use, unspecified with withdrawal delirium; R56.9 - Unspecified convulsions Status: Acute Assessment and Plan: The patient experiencing acute alcohol withdrawal complicated by seizure. In IMU, pt had 2 separate witnessed episodes of seizure-like activity with associated nystagmus and unequal pupils.? CT of the head showing no acute findings. Was having snoring respirations and concerning for impending respiratory failure so nasal trumpet was placed but now removed Capnography was applied and normal. Ammonia <9. Wellbutrin stopped. Receiving Librium sporadically because too obtunded. Able to protect his airway but ABG 7.43/53/78 on 2L. On IV thiamine high dose. Continue thiamine Ativan decreased. Will stop Ativan and Librium now to see if he can wake up more Ativan available for seizures. (2) Abnormal chest xray: Code(s): R93.89 - Abnormal findings on diagnostic imaging of other specified body structures Status: Acute Assessment and Plan: CXR showing patchy airspace disease on the lungs. BNP 3270 but I/O is even and does not appear to be fluid overloaded. Suspect aspiration PNA related to obtunded condition. Abx added as Vanco and Unasyn MRSA negative so will stop Vanco Check BCx. Consider Lasix but hold for now. (3) Hypokalemia: Code(s): E87.6 - Hypokalemia Status: Acute Assessment and Plan: Potassium was low and replaced. Magnesium 1.9 Follow levels and replace. (4) Acute alcoholic hepatitis: Code(s): K70.10 - Alcoholic hepatitis without ascites Status: Acute Assessment and Plan: AST and ALT were mildly elevated on admission. They are trending downward now. Hepatitis panel negative [place] related to acute alcoholic hepatitis. Follow (5) Hyponatremia: Code(s): E87.1 - Hypo-osmolality and hyponatremia Status: Acute Assessment and Plan: Patient does have hyponatremia likely due to chronic alcoholism.? This is been noted in the past. Sodium 121 on admission. Sodium climbed to 132 in 32 hours but now back to 127 Will change to D5NS Continue serial Na levels. (6) Diabetes type 1, controlled: Qualifiers: Diabetes mellitus complication status: without complication Qualified Code(s): E10.9 - Type 1 diabetes mellitus without complications Code(s): E10.9 - Type 1 diabetes mellitus without complications Status: Chronic Assessment and Plan: The patient's blood glucose was reviewed on 08/09 Glucose more elevated. He is Type I normally on an insulin pump. Continue AccuCheks covering with sliding scale. Hypoglycemia protocol available as needed. No evidence of DKA Advance low dose Lantus (7) Benign essential HTN: Code(s): I10 - Essential (primary) hypertension Status: Chronic Assessment and Plan: Patient's blood pressure was reviewed on 08/09 Blood pressure remains elevated. Hydralazine prn available Will continue to monitor (8) Alcoholism: Code(s): F10.20 - Alcohol dependence, uncomplicated Status: Acute Assessment and Plan: Patient will need to be educated about the benefits of abstaining from alcohol use once he is more awake and alert Continue thiamine. Add Folate (9) OZZY (obstructive sleep apnea): Code(s): G47.33 - Obstructive sleep apnea (adult) (pediatric) Status: Acute Assessment and Plan: Patient has a history of sleep apnea. Resume CPAP when he is more awake and alert Plan DVT prophylaxis -SCDs Code status -full Subjective Date/time seen: 08/09/23 11:14 Interval history: 47yo male with DM, HTN, OZZY and alcoholism here for altered mental status from alcohol withdrawal. No problems overnight. Became more awake. Review of Systems Review of Systems: HANNY alfredo
[2023-08-09] MEDS: FOLIC ACID 1 MG/0.2 ML INJ IV PUSH (11:59)
[2023-08-09 12:00] LABS: Glucose Point of Care 281 mg/dl (65-105)
[2023-08-09 18:26] LABS: Glucose Point of Care 230 mg/dl (65-105)
[2023-08-09] MEDS: VANCOMYCIN 1,250 MG/NS 250 ML 1,250 MG/250 ML BAG 166.67 MG IVPB (20:04)
[2023-08-09] MEDS: INSULIN GLARGINE (*BKC) 100 UNITS/ML 9 UNITS SUB-Q (20:04)
[2023-08-09 20:16] LABS: Prolactin 7.3 ng/mL (***)
[2023-08-09 23:52] LABS: Glucose Point of Care 233 mg/dl (65-105)
[2023-08-10] VITALS (18 sets, daily range): BP systolic 144–173; BP diastolic 90–130; PULSE 86–138; RESP 19–35; TEMP 36.7–37.6; O2SAT 94–100
[2023-08-10 04:52] LABS: Hematocrit 39.6 % (42.0-52.0); Hemoglobin 13.6 g/dL (14.0-18.0); Immature Platelet Fraction Pct 4.6 % (0.9-11.2); Mean Corpuscular HGB Conc 34.3 g/dl (32-36); Mean Corpuscular Hemoglobin 32.9 pg (26-34); Mean Corpuscular Volume 95.9 fl (80-100); Mean Platelet Volume 9.7 fl (7.4-10.4); Platelet Count Result 368 k/mm3 (150-375); Red Blood Count 4.13 M/mm3 (4.6-6.20); Red Cell Distribution Width 10.6 % (11.5-14.5); White Blood Count 7.8 K/mm3 (4.5-10.0)
[2023-08-10 05:02] LABS: Alanine Aminotransferase 41 U/L (6-50); Albumin Level 3.6 g/dL (3.5-5.1); Alkaline Phosphatase 83 U/L (38-126); Anion Gap 7 mmol/L (8-16); Aspartate Amino Transferase 39 U/L (17-59); Bilirubin,Total 1.3 mg/dL (0.2-1.3); Blood Urea Nitrogen 12 mg/dL (9-20); Calcium 8.2 mg/dL (8.4-10.2); Carbon Dioxide 35 mmol/L (22-30); Chloride 98 mmol/L (98-107); Estimated CRCL calculation 147 ml/min; Estimated Glomerular Filt Rate > 60; Glucose 143 mg/dL (65-110); Magnesium 2.1 mg/dL (1.6-2.3); Phosphorus 1.3 mg/dL (2.5-4.5); Potassium 2.8 mmol/L (3.4-5.0); Sodium 140 mmol/L (137-145)
[2023-08-10 05:29] LABS: Band Neutrophils Percent 8 % (0-6); Eosinophils Absolute Manual 0.23 K/mm3 (0.02-0.5); Eosinophils Percent Manual 3 % (0-4); Lymphocytes Absolute Manual 1.48 K/mm3 (1.1-4.5); Monocytes Absolute Manual 1.09 K/mm3 (0.1-0.90); Monocytes Percent Manual 14 % (3-9); Neutrophils Absolute Manual 4.99 K/mm3 (1.3-6.7); Neutrophils Percent Manual 56 % (46-73); Total Cells Counted 100
[2023-08-10 05:30] LABS: Hypochromasia 1+ (NORMAL); Platelet Estimate Adequate (Adequate); Schistocytes None Seen (NORMAL)
[2023-08-10] MEDS: POTASSIUM CHLORIDE INJ 40 MEQ in SODIUM CHLORIDE 0.9% IV 500 ML 120 MEQ IVPB (05:32)
[2023-08-10] MEDS: AMPICILLIN SULB 3 GM/NS 100 ML 3 GM/100 ML VIAL IVPB ×3 (05:36→18:19)
[2023-08-10] MEDS: POTASSIUM/PHOSPHORUS/SODIUM 1.5 GM PACKET 1 PACKET PO (05:46)
[2023-08-10] MEDS: THIAMINE 500 MG/NS 100 ML 500 MG/100 ML BAG 200 MG IVPB ×3 (05:48→21:28)
[2023-08-10 06:28] LABS: Glucose Point of Care 152 mg/dl (65-105)
[2023-08-10] MEDS: FOLIC ACID 1 MG/0.2 ML INJ IV PUSH (09:04)
[2023-08-10] MEDS: VANCOMYCIN 1,250 MG/NS 250 ML 1,250 MG/250 ML BAG 166.67 MG IVPB (09:08)
[2023-08-10] MEDS: ENOXAPARIN 40 MG/0.4 ML SYRINGE SUB-Q (09:20)
[2023-08-10] MEDS: DEXTROSE 5% 1,000 ML 1,000 ML 100 ML IV CONT (11:09)
--- NOTE | 2023-08-10 11:39 | PM.IMPN ---
Progress Note: A&P Assessment and Plan (1) Alcohol withdrawal seizure with delirium: Code(s): F10.931 - Alcohol use, unspecified with withdrawal delirium; R56.9 - Unspecified convulsions Status: Acute Assessment and Plan: The patient experiencing acute alcohol withdrawal complicated by seizure. In IMU, pt had 2 separate witnessed episodes of seizure-like activity with associated nystagmus and unequal pupils.? CT of the head showing no acute findings. Was having snoring respirations and concerning for impending respiratory failure so nasal trumpet was placed but now removed Capnography was applied and normal. Ammonia <9. Wellbutrin stopped. He was rReceiving Librium sporadically but now stopped. Able to protect his airway but ABG 7.43/53/78 on 2L. On IV thiamine high dose. Continue thiamine Ativan stopped (for withdrawal) and now more awake and alert (Ativan available for seizures). PT/OT. ST to evaluate. Increase activity. (2) Abnormal chest xray: Code(s): R93.89 - Abnormal findings on diagnostic imaging of other specified body structures Status: Acute Assessment and Plan: CXR showing patchy airspace disease on the lungs. BNP 3270 but I/O is even and does not appear to be fluid overloaded. Suspect aspiration PNA related to obtunded condition. Abx added as Vanco and Unasyn. MRSA negative so Vanco stopped WBC normal but with bands at 8%. BCx pending Monitor. Wean O2 as toelrated (3) Hyponatremia: Code(s): E87.1 - Hypo-osmolality and hyponatremia Status: Acute Assessment and Plan: Patient does have hyponatremia likely due to chronic alcoholism.? This is been noted in the past. Sodium 121 on admission. Sodium climbed to 132 in 32 hours but now back to 127 Na 140 this morning so aryan change back to D5W and monitor Na levels closely (4) Hypokalemia: Code(s): E87.6 - Hypokalemia Status: Acute Assessment and Plan: Potassium was low and replaced again. Magnesium 2.1 Follow levels and replace. (5) Acute alcoholic hepatitis: Code(s): K70.10 - Alcoholic hepatitis without ascites Status: Acute Assessment and Plan: AST and ALT were mildly elevated on admission. They are trending downward now. Hepatitis panel negative [place] related to acute alcoholic hepatitis. Follow (6) Diabetes type 1, controlled: Qualifiers: Diabetes mellitus complication status: without complication Qualified Code(s): E10.9 - Type 1 diabetes mellitus without complications Code(s): E10.9 - Type 1 diabetes mellitus without complications Status: Chronic Assessment and Plan: The patient's blood glucose was reviewed on 08/10 Glucose more elevated yesterday but better this morning on higher Lantus dosing. He is Type I normally on an insulin pump but does not know his settings. Continue AccuCheks covering with sliding scale. Hypoglycemia protocol available as needed. Continue the same but will need to advance regiment once he starts eating (7) Benign essential HTN: Code(s): I10 - Essential (primary) hypertension Status: Chronic Assessment and Plan: Patient's blood pressure was reviewed on 08/10 Blood pressure remains elevated. Hydralazine prn available Add back oral meds once he is able to swallow safely. Will continue to monitor (8) Alcoholism: Code(s): F10.20 - Alcohol dependence, uncomplicated Status: Acute Assessment and Plan: Patient was educated about the benefits of abstaining from alcohol Continue thiamine and Folate (9) OZZY (obstructive sleep apnea): Code(s): G47.33 - Obstructive sleep apnea (adult) (pediatric) Status: Acute Assessment and Plan: Patient has a history of sleep apnea. Resume CPAP now that he is more awake and alert Plan DVT prophylaxis -SCDs Code status -full Subjective Date/time seen: 08/10/23 11:39
[2023-08-10 12:02] LABS: Glucose Point of Care 253 mg/dl (65-105)
[2023-08-10] MEDS: INSULIN ASPART (*BKC) 100 UNITS/ML SUB-Q ×2 (12:03→18:25)
--- NOTE | 2023-08-10 12:47 | PCSTNOTE ---
Please refer to the Bedside Swallow Evaluation in the EMR. Please note, silent aspiration cannot be ruled out at bedside.
[2023-08-10] MEDS: METOPROLOL TARTRATE INJ 5 MG/5 ML VIAL IV PUSH ×2 (14:48→21:11)
[2023-08-10 15:19] LABS: Albumin Level 3.2 g/dL (3.5-5.1); Anion Gap 6 mmol/L (8-16); Blood Urea Nitrogen 12 mg/dL (9-20); Calcium 7.8 mg/dL (8.4-10.2); Carbon Dioxide 32 mmol/L (22-30); Chloride 100 mmol/L (98-107); Estimated CRCL calculation 147 ml/min; Estimated Glomerular Filt Rate > 60; Glucose 198 mg/dL (65-110); Phosphorus 1.3 mg/dL (2.5-4.5); Potassium 2.8 mmol/L (3.4-5.0); Sodium 138 mmol/L (137-145)
[2023-08-10] MEDS: POTASSIUM CHLORIDE INJ 40 MEQ in SODIUM CHLORIDE 0.9% IV 500 ML 130 MEQ IVPB (16:48)
[2023-08-10] MEDS: SODIUM PHOSPHATE 20 MM in DEXTROSE 5% IN WATER 250 ML 50 MM IVPB (17:27)
[2023-08-10 18:30] LABS: Glucose Point of Care 262 mg/dl (65-105)
[2023-08-10] MEDS: hydrALAZINE HCL 20 MG/ML VIAL 10 MG IV PUSH (19:53)
[2023-08-10] MEDS: LORazepam INJ (*CRX) 2 MG/ML VIAL IV PUSH (19:54)
[2023-08-10] MEDS: OLANZapine 10 MG INJ VIAL 2.5 MG IM (20:33)
[2023-08-10] MEDS: INSULIN GLARGINE (*BKC) 100 UNITS/ML 9 UNITS SUB-Q (21:11)
[2023-08-10 23:55] LABS: Phosphorus 1.7 mg/dL (2.5-4.5); Potassium 2.8 mmol/L (3.4-5.0); Sodium 137 mmol/L (137-145)
[2023-08-11] VITALS (20 sets, daily range): BP systolic 129–184; BP diastolic 61–91; PULSE 84–125; RESP 13–24; TEMP 36.6–38.2; O2SAT 96–99
[2023-08-11 00:33] LABS: Glucose Point of Care 233 mg/dl (65-105)
[2023-08-11] MEDS: POTASSIUM CHLORIDE INJ 40 MEQ in SODIUM CHLORIDE 0.9% IV 500 ML 130 MEQ IVPB (00:58)
[2023-08-11] MEDS: SODIUM PHOSPHATE 20 MM in DEXTROSE 5% IN WATER 250 ML 50 MM IVPB (00:59)
[2023-08-11] MEDS: AMPICILLIN SULB 3 GM/NS 100 ML 3 GM/100 ML VIAL IVPB ×5 (00:59→23:27)
[2023-08-11] MEDS: DEXTROSE 5%/0.45% SOD CHL 1,000 ML 70 ML IV CONT ×2 (01:55→16:18)
[2023-08-11] MEDS: INSULIN ASPART (*BKC) 100 UNITS/ML SUB-Q ×2 (01:56→17:42)
[2023-08-11 04:59] LABS: Basophils Absolute Auto 0.1 K/mm3 (0.0-0.1); Basophils Percent Auto 0.7 % (0.2-1.2); Eosinophils Absolute Auto 0.1 K/mm3 (0-0.3); Eosinophils Percent Auto 1.6 % (0-4.4); Hematocrit 33.1 % (42.0-52.0); Hemoglobin 11.5 g/dL (14.0-18.0); Immature Granulocyte Absolute 0.03 K/mm3 (0.00-0.031); Immature Granulocyte Percent A 0.4 % (0-0.5); Lymphocytes Absolute Auto 1.47 K/mm3 (0.9-3.2); Lymphocytes Percent Auto 20.8 % (18.3-44.2); Mean Corpuscular HGB Conc 34.7 g/dl (32-36); Mean Corpuscular Volume 94.8 fl (80-100); Mean Platelet Volume 8.5 fl (7.4-10.4); Monocytes Absolute Auto 1.3 K/mm3 (0.1-0.6); Monocytes Percent Auto 18.8 % (2.6-8.5); Neutrophils Absolute Auto 4.1 K/mm3 (1.3-6.7); Neutrophils Percent Auto 57.7 % (45.5-73.1); Platelet Count Result 368 k/mm3 (150-375); Red Blood Count 3.49 M/mm3 (4.6-6.20); Red Cell Distribution Width 10.7 % (11.5-14.5); White Blood Count 7.1 K/mm3 (4.5-10.0)
[2023-08-11] MEDS: METOPROLOL TARTRATE INJ 5 MG/5 ML VIAL IV PUSH ×4 (05:07→19:32)
[2023-08-11 05:11] LABS: Alanine Aminotransferase 32 U/L (6-50); Albumin Level 3.3 g/dL (3.5-5.1); Alkaline Phosphatase 74 U/L (38-126); Anion Gap 5 mmol/L (8-16); Aspartate Amino Transferase 38 U/L (17-59); Bilirubin,Total 1.3 mg/dL (0.2-1.3); Blood Urea Nitrogen 12 mg/dL (9-20); Calcium 7.8 mg/dL (8.4-10.2); Carbon Dioxide 31 mmol/L (22-30); Chloride 104 mmol/L (98-107); Estimated CRCL calculation 147 ml/min; Estimated Glomerular Filt Rate > 60; Glucose 105 mg/dL (65-110); Magnesium 1.7 mg/dL (1.6-2.3); Phosphorus 2.2 mg/dL (2.5-4.5); Sodium 140 mmol/L (137-145)
[2023-08-11] MEDS: THIAMINE 500 MG/NS 100 ML 500 MG/100 ML BAG 200 MG IVPB ×3 (06:31→19:32)
[2023-08-11] MEDS: FOLIC ACID 1 MG/0.2 ML INJ IV PUSH (08:43)
[2023-08-11] MEDS: ENOXAPARIN 40 MG/0.4 ML SYRINGE SUB-Q (08:43)
--- NOTE | 2023-08-11 08:51 | PM.IMPN ---
Progress Note: A&P Assessment and Plan (1) Alcohol withdrawal seizure with delirium: Code(s): F10.931 - Alcohol use, unspecified with withdrawal delirium; R56.9 - Unspecified convulsions Status: Acute Assessment and Plan: The patient experiencing acute alcohol withdrawal complicated by seizure. In IMU, pt had 2 separate witnessed episodes of seizure-like activity with associated nystagmus and unequal pupils.? CT of the head showing no acute findings. Was having snoring respirations and concerning for impending respiratory failure so nasal trumpet was placed but now removed Capnography was applied and normal. Ammonia <9. Wellbutrin stopped. He was rReceiving Librium sporadically but now stopped. Able to protect his airway but ABG 7.43/53/78 on 2L. On IV thiamine high dose. Continue thiamine Ativan stopped (for withdrawal) and now more awake and alert (Ativan available for seizures). PT/OT. ST to evaluate. Increase activity. 08/11: Much worse today, placed on Precedex drip (2) Abnormal chest xray: Code(s): R93.89 - Abnormal findings on diagnostic imaging of other specified body structures Status: Acute Assessment and Plan: CXR showing patchy airspace disease on the lungs. BNP 3270 but I/O is even and does not appear to be fluid overloaded. Suspect aspiration PNA related to obtunded condition. Abx added as Vanco and Unasyn. MRSA negative so Vanco stopped WBC normal but with bands at 8%. BCx pending Monitor. Wean O2 as toelrated (3) Hyponatremia: Code(s): E87.1 - Hypo-osmolality and hyponatremia Status: Acute Assessment and Plan: Patient does have hyponatremia likely due to chronic alcoholism.? This is been noted in the past. Sodium 121 on admission. Sodium climbed to 132 in 32 hours but now back to 127 Na 140 this morning so aryan change back to D5W and monitor Na levels closely (4) Hypokalemia: Code(s): E87.6 - Hypokalemia Status: Acute Assessment and Plan: Potassium was low and replaced again. Magnesium 2.1 Follow levels and replace. (5) Acute alcoholic hepatitis: Code(s): K70.10 - Alcoholic hepatitis without ascites Status: Acute Assessment and Plan: AST and ALT were mildly elevated on admission. They are trending downward now. Hepatitis panel negative [place] related to acute alcoholic hepatitis. Follow (6) Diabetes type 1, controlled: Qualifiers: Diabetes mellitus complication status: without complication Qualified Code(s): E10.9 - Type 1 diabetes mellitus without complications Code(s): E10.9 - Type 1 diabetes mellitus without complications Status: Chronic Assessment and Plan: The patient's blood glucose was reviewed on 08/11 Glucose more elevated yesterday but better this morning on higher Lantus dosing. He is Type I normally on an insulin pump but does not know his settings. Continue AccuCheks covering with sliding scale. Hypoglycemia protocol available as needed. Continue the same but will need to advance regiment once he starts eating (7) Benign essential HTN: Code(s): I10 - Essential (primary) hypertension Status: Chronic Assessment and Plan: Patient's blood pressure was reviewed on 08/11 Blood pressure remains elevated. Hydralazine prn available Add back oral meds once he is able to swallow safely. Will continue to monitor (8) Alcoholism: Code(s): F10.20 - Alcohol dependence, uncomplicated Status: Acute Assessment and Plan: Patient was educated about the benefits of abstaining from alcohol Continue thiamine and Folate (9) OZZY (obstructive sleep apnea): Code(s): G47.33 - Obstructive sleep apnea (adult) (pediatric) Status: Acute Assessment and Plan: Patient has a history of sleep apnea. Plan DVT prophylaxis -SCDs Code status -full Subjective Date/time seen: 08/11/23
--- NOTE | 2023-08-11 09:54 | PCPTNOTE ---
Attempted PT evaluation, pt too confused to participate in therapy evaluation. Will follow.
[2023-08-11 11:30] LABS: Glucose Point of Care 195 mg/dl (65-105)
[2023-08-11] MEDS: LORazepam INJ (*CRX) 2 MG/ML VIAL IV PUSH ×5 (11:39→22:36)
--- NOTE | 2023-08-11 12:51 | PCOTNOTE ---
The patient treatment was not able to be completed patient is confused and in soft restraints. Will follow up tomorrow.
[2023-08-11 17:38] LABS: Glucose Point of Care 245 mg/dl (65-105)
[2023-08-11 19:34] LABS: Glucose Point of Care 129 mg/dl (65-105)
[2023-08-11 23:45] LABS: Glucose Point of Care 166 mg/dl (65-105)
[2023-08-12] VITALS (35 sets, daily range): BP systolic 92–160; BP diastolic 60–93; PULSE 75–95; RESP 13–34; TEMP 36.6–37.7; O2SAT 90–100; BMI 22.9
[2023-08-12] MEDS: dexmedeTOMIDine 400 MCG/100 ML 400 MCG/100 ML BAG IV CONT (00:16)
[2023-08-12] MEDS: METOPROLOL TARTRATE INJ 5 MG/5 ML VIAL IV PUSH (02:38)
[2023-08-12] MEDS: dexmedeTOMIDine 400 MCG/100 ML 400 MCG/100 ML BAG 12.08 MCG IV CONT (04:27)
[2023-08-12 05:03] LABS: Basophils Absolute Auto 0.1 K/mm3 (0.0-0.1); Basophils Percent Auto 0.6 % (0.2-1.2); Eosinophils Absolute Auto 0.1 K/mm3 (0-0.3); Eosinophils Percent Auto 0.8 % (0-4.4); Hematocrit 35.1 % (42.0-52.0); Hemoglobin 12.4 g/dL (14.0-18.0); Immature Granulocyte Absolute 0.04 K/mm3 (0.00-0.031); Immature Granulocyte Percent A 0.4 % (0-0.5); Lymphocytes Absolute Auto 1.37 K/mm3 (0.9-3.2); Lymphocytes Percent Auto 13.7 % (18.3-44.2); Mean Corpuscular HGB Conc 35.3 g/dl (32-36); Mean Corpuscular Hemoglobin 33.2 pg (26-34); Mean Corpuscular Volume 93.9 fl (80-100); Mean Platelet Volume 8.5 fl (7.4-10.4); Monocytes Absolute Auto 1.4 K/mm3 (0.1-0.6); Monocytes Percent Auto 13.7 % (2.6-8.5); Neutrophils Absolute Auto 7.1 K/mm3 (1.3-6.7); Neutrophils Percent Auto 70.8 % (45.5-73.1); Platelet Count Result 376 k/mm3 (150-375); Red Blood Count 3.74 M/mm3 (4.6-6.20); Red Cell Distribution Width 10.7 % (11.5-14.5)
[2023-08-12] MEDS: AMPICILLIN SULB 3 GM/NS 100 ML 3 GM/100 ML VIAL IVPB ×3 (05:09→17:18)
[2023-08-12 05:18] LABS: Alanine Aminotransferase 32 U/L (6-50); Albumin Level 3.2 g/dL (3.5-5.1); Alkaline Phosphatase 69 U/L (38-126); Anion Gap 8 mmol/L (8-16); Aspartate Amino Transferase 39 U/L (17-59); Bilirubin,Total 1.3 mg/dL (0.2-1.3); Blood Urea Nitrogen 9 mg/dL (9-20); Calcium 7.8 mg/dL (8.4-10.2); Carbon Dioxide 33 mmol/L (22-30); Chloride 95 mmol/L (98-107); Estimated CRCL calculation 125 ml/min; Estimated Glomerular Filt Rate > 60; Glucose 214 mg/dL (65-110); Magnesium 1.5 mg/dL (1.6-2.3); Phosphorus 4.3 mg/dL (2.5-4.5); Sodium 136 mmol/L (137-145)
[2023-08-12] MEDS: INSULIN ASPART (*BKC) 100 UNITS/ML SUB-Q ×2 (06:20→12:20)
[2023-08-12] MEDS: MAGNESIUM SULF 2 GM/WATER 50ML 2 GM/50 ML BAG IVPB (08:14)
[2023-08-12] MEDS: ENOXAPARIN 40 MG/0.4 ML SYRINGE SUB-Q (08:14)
[2023-08-12] MEDS: FUROSEMIDE INJ 40 MG/4 ML VIAL IV PUSH (08:14)
[2023-08-12] MEDS: FOLIC ACID 1 MG/0.2 ML INJ IV PUSH (08:14)
--- NOTE | 2023-08-12 08:19 | WPDCNINT ---
Assessment and Plan Assessment and plan (1) Encephalopathy: Code(s): G93.40 - Encephalopathy, unspecified Status: Acute Assessment and Plan: Patient was made ICU status 06/12/2024 at around 1:30 a.m. as he was still delirious, agitated, encephalopathic likely related to alcohol withdrawal -patient has been in the hospital since 08/07/2023 -08/07/[address] showed cerebral arthrosclerosis, no skull fracture or acute intracranial findings -given patient still encephalopathic, delirious, agitated, confused will repeat another CT scan of the brain today -continue Precedex infusion, wean to maintain RASS of 0 (2) Alcohol withdrawal seizure with delirium: Code(s): F10.931 - Alcohol use, unspecified with withdrawal delirium; R56.9 - Unspecified convulsions Status: Acute Assessment and Plan: Patient presented with tremors, tachycardia, confusion -was initially on Ativan, Librium with no improvement -08/12: Early this morning was started Precedex infusion -continue folic acid -will order thiamine (3) Benign essential HTN: Code(s): I10 - Essential (primary) hypertension Status: Chronic Assessment and Plan: Patient's blood pressures are stable on Precedex infusion -patient does have p.r.n. hydralazine and p.r.n. metoprolol (4) Diabetes type 1, controlled: Qualifiers: Diabetes mellitus complication status: without complication Qualified Code(s): E10.9 - Type 1 diabetes mellitus without complications Code(s): E10.9 - Type 1 diabetes mellitus without complications Status: Chronic Assessment and Plan: Continue Lantus -the sliding scale insulin Accu-Chek (5) Hypokalemia: Code(s): E87.6 - Hypokalemia Status: Acute Assessment and Plan: Patient hypokalemic likely related to alcoholism -will aggressively replace potassium -will also replace magnesium (6) Abnormal chest xray: Code(s): R93.89 - Abnormal findings on diagnostic imaging of other specified body structures Status: Acute Assessment and Plan: Chest x-ray this morning: Patchy hazy bilateral airspace disease. Correlate for pulmonary edema versus infection Afebrile, normal WBC count, normal neutrophil count -continue Unasyn for possible aspiration pneumonitis/pneumonia (08/09) -will give a dose of Lasix today as chest x-ray possibly also shows pulmonary edema Plan DVT prophylaxis: Lovenox Stress ulcer prophylaxis: Not indicated Nutrition: NPO, patient did fail his barium swallow could be related to his encephalopathy, delirium Code Status: Full for Critical Care Time Spent: 49 minutes Due to a high probability of clinically significant, life threatening deterioration, the patient required my highest level of preparedness to intervene emergently and I personally spent this critical care time directly and personally managing the patient. This critical care time included obtaining a history; examining the patient; pulse oximetry; ordering and review of studies; arranging urgent treatment with development of a management plan; evaluation of patient's response to treatment; frequent reassessment; and discussions with other providers. It was exclusive of separately billable procedures and treating other patients and teaching time. Please see Assessment and Plan section and the rest of the note for further information on patient assessment and treatment This dictation may have been done utilizing a voice recognition system. Attempts have been made to correct errors. However, there may be uncorrected grammatical, spelling, and recognitions errors present. Pulmonary Nurse Practitioner Consult Note Consult date: 08/12/23 Reason for consult: Encephalopathy, agitation, delirium, alcohol withdrawal, hypokalemia, alcoholic hepatitis HPI: Eduard Dc is a 47 year old male with past medical history of essential hypertension, diabetes type 1, hyperlipidemia, major depression, obstruc
--- NOTE | 2023-08-12 09:27 | PCOTNOTE ---
PT Spoke with Dr. Tian, pt OK to be discharged from therapy due to currently being disoriented. Please re-order when pt is appropriate.
[2023-08-12] MEDS: POTASSIUM CHLORIDE INJ 40 MEQ in SODIUM CHLORIDE 0.9% IV 500 ML 130 MEQ IVPB (09:39)
[2023-08-12] MEDS: THIAMINE HCL 200 MG/2 ML VIAL 100 MG IV PUSH (09:39)
[2023-08-12] MEDS: LIDOCAINE HCL 1% PF INJ 5 ML VIAL INFILTRATE (10:10)
[2023-08-12] MEDS: CENTRAL LINE FLUSH 10 ML IV PUSH (12:15)
[2023-08-12 12:16] LABS: Glucose Point of Care 235 mg/dl (65-105)
[2023-08-12 16:25] LABS: Glucose Point of Care 69 mg/dl (65-105)
[2023-08-12] MEDS: DEXTROSE 50% 25 GM/50 ML SYRINGE IV PUSH (16:26)
[2023-08-12 16:48] LABS: Glucose Point of Care 155 mg/dl (65-105)
[2023-08-12] MEDS: dexmedeTOMIDine 400 MCG/100 ML 400 MCG/100 ML BAG 5.18 MCG IV CONT (17:00)
[2023-08-12 21:39] LABS: Glucose Point of Care 260 mg/dl (65-105)
[2023-08-12] MEDS: INSULIN GLARGINE (*BKC) 100 UNITS/ML 9 UNITS SUB-Q (21:40)
[2023-08-13] VITALS (16 sets, daily range): BP systolic 136–174; BP diastolic 65–94; PULSE 74–121; RESP 10–28; TEMP 36.9–38.3; O2SAT 94–100
[2023-08-13 00:14] LABS: Glucose Point of Care 281 mg/dl (65-105)
[2023-08-13] MEDS: INSULIN ASPART (*BKC) 100 UNITS/ML SUB-Q ×5 (00:16→21:22)
[2023-08-13] MEDS: AMPICILLIN SULB 3 GM/NS 100 ML 3 GM/100 ML VIAL IVPB ×5 (00:17→23:33)
[2023-08-13] MEDS: CENTRAL LINE FLUSH 10 ML IV PUSH ×4 (00:17→21:32)
[2023-08-13 05:42] LABS: Basophils Absolute Auto 0.1 K/mm3 (0.0-0.1); Basophils Percent Auto 0.8 % (0.2-1.2); Eosinophils Absolute Auto 0.1 K/mm3 (0-0.3); Eosinophils Percent Auto 1.4 % (0-4.4); Hemoglobin 11.3 g/dL (14.0-18.0); Immature Granulocyte Absolute 0.04 K/mm3 (0.00-0.031); Immature Granulocyte Percent A 0.5 % (0-0.5); Lymphocytes Absolute Auto 1.19 K/mm3 (0.9-3.2); Lymphocytes Percent Auto 15.5 % (18.3-44.2); Mean Corpuscular HGB Conc 34.2 g/dl (32-36); Mean Corpuscular Hemoglobin 32.9 pg (26-34); Mean Corpuscular Volume 96.2 fl (80-100); Mean Platelet Volume 8.9 fl (7.4-10.4); Monocytes Absolute Auto 0.9 K/mm3 (0.1-0.6); Monocytes Percent Auto 11.3 % (2.6-8.5); Neutrophils Absolute Auto 5.4 K/mm3 (1.3-6.7); Neutrophils Percent Auto 70.5 % (45.5-73.1); Platelet Count Result 364 k/mm3 (150-375); Red Blood Count 3.43 M/mm3 (4.6-6.20); Red Cell Distribution Width 10.7 % (11.5-14.5); White Blood Count 7.7 K/mm3 (4.5-10.0)
[2023-08-13 05:54] LABS: Alanine Aminotransferase 25 U/L (6-50); Alkaline Phosphatase 84 U/L (38-126); Anion Gap 3 mmol/L (8-16); Aspartate Amino Transferase 32 U/L (17-59); Bilirubin,Total 0.8 mg/dL (0.2-1.3); Blood Urea Nitrogen 18 mg/dL (9-20); Calcium 8.3 mg/dL (8.4-10.2); Carbon Dioxide 38 mmol/L (22-30); Chloride 97 mmol/L (98-107); Estimated CRCL calculation 125 ml/min; Estimated Glomerular Filt Rate > 60; Glucose 244 mg/dL (65-110); Magnesium 1.9 mg/dL (1.6-2.3); Phosphorus 3.1 mg/dL (2.5-4.5); Potassium 3.3 mmol/L (3.4-5.0); Sodium 138 mmol/L (137-145)
--- NOTE | 2023-08-13 07:00 | PC.NURSE ---
Norepinephrine drip found to be running at 4 mcg/min upon assuming care for patient this morning.
[2023-08-13] MEDS: MAGNESIUM SULF 2 GM/WATER 50ML 2 GM/50 ML BAG IVPB (08:41)
[2023-08-13] MEDS: THIAMINE HCL 200 MG/2 ML VIAL 100 MG IV PUSH (08:43)
[2023-08-13] MEDS: hydrALAZINE HCL 20 MG/ML VIAL 10 MG IV PUSH ×2 (08:43→21:29)
[2023-08-13] MEDS: KCL 40 MEQ/WATER 100 ML 100 ML 25 ML IVPB (08:43)
[2023-08-13] MEDS: ENOXAPARIN 40 MG/0.4 ML SYRINGE SUB-Q (08:43)
[2023-08-13] MEDS: FOLIC ACID 1 MG/0.2 ML INJ IV PUSH (08:43)
--- NOTE | 2023-08-13 09:39 | WPDINTPN ---
Progress Note: A&P Assessment and Plan (1) Encephalopathy: Code(s): G93.40 - Encephalopathy, unspecified Status: Acute Assessment and Plan: Patient was made ICU status 06/12/2024 at around 1:30 a.m. as he was still delirious, agitated, encephalopathic likely related to alcohol withdrawal -patient has been in the hospital since 08/07/2023 -08/07/[address] showed cerebral arthrosclerosis, no skull fracture or acute intracranial findings 08/12/2023: CT of the brain did not show any acute intracranial findings (2) Alcohol withdrawal seizure with delirium: Code(s): F10.931 - Alcohol use, unspecified with withdrawal delirium; R56.9 - Unspecified convulsions Status: Acute Assessment and Plan: Patient presented with tremors, tachycardia, confusion -was initially on Ativan, Librium with no improvement -08/12: Early this morning was started Precedex infusion -currently of Precedex infusion -continue folic acid and thiamine (3) Benign essential HTN: Code(s): I10 - Essential (primary) hypertension Status: Chronic Assessment and Plan: Patient's blood pressures are stable on Precedex infusion -patient does have p.r.n. hydralazine and p.r.n. metoprolol (4) Diabetes type 1, controlled: Qualifiers: Diabetes mellitus complication status: without complication Qualified Code(s): E10.9 - Type 1 diabetes mellitus without complications Code(s): E10.9 - Type 1 diabetes mellitus without complications Status: Chronic Assessment and Plan: Continue Lantus -the sliding scale insulin Accu-Chek (5) Hypokalemia: Code(s): E87.6 - Hypokalemia Status: Acute Assessment and Plan: Patient hypokalemic likely related to alcoholism -will aggressively replace potassium -will also replace magnesium (6) Abnormal chest xray: Code(s): R93.89 - Abnormal findings on diagnostic imaging of other specified body structures Status: Acute Assessment and Plan: Chest x-ray this morning: Hazy airspace disease bilaterally, as above. Correlate for pulmonary edema versus multifocal infection. Afebrile, normal WBC count, normal neutrophil count -continue Unasyn for possible aspiration pneumonitis/pneumonia (08/09) -responded well to Lasix on 08/12, chest x-ray improved Plan DVT prophylaxis: Lovenox Stress ulcer prophylaxis: Not indicated Nutrition: NG tube feeds for now, will order bedside swallow evaluation as patient is more awake and alert Code Status: Full code Critical Care Time Spent: 34 minutes Due to a high probability of clinically significant, life threatening deterioration, the patient required my highest level of preparedness to intervene emergently and I personally spent this critical care time directly and personally managing the patient. This critical care time included obtaining a history; examining the patient; pulse oximetry; ordering and review of studies; arranging urgent treatment with development of a management plan; evaluation of patient's response to treatment; frequent reassessment; and discussions with other providers. It was exclusive of separately billable procedures and treating other patients and teaching time. Please see Assessment and Plan section and the rest of the note for further information on patient assessment and treatment This dictation may have been done utilizing a voice recognition system. Attempts have been made to correct errors. However, there may be uncorrected grammatical, spelling, and recognitions errors present. Subjective Date/time seen: 08/13/23 09:39 Interval history: 47yo male with DM, HTN, OZZY and alcoholism here for altered mental status from alcohol withdrawal. Reason for ICU consult: Encephalopathy, agitation, delirium, alcohol withdrawal, hypokalemia, alcoholic hepatitis 08/13/2023: Patient seen and examined the ICU, has been off Precedex infusion since this morning, is awake, alert
[2023-08-13] MEDS: chlordiazePOXIDE (*CRX) 25 MG CAPSULE FEED TUBE ×3 (11:30→23:33)
[2023-08-13 11:48] LABS: Glucose Point of Care 286 mg/dl (65-105)
--- NOTE | 2023-08-13 12:06 | PCNFU ---
Nutrition Follow-Up Complete: Excessive Alcohol Intake as related to history of estimated alcohol intake in excess of recommend as evidenced by intake of > 2 drinks/day. Goal:Meet estimated nutritional needs. Patient is progressing towards goal. Pt current nutrition is Glucerna 1.2 at 70 ml/hr. Last recorded weight is 68.5 kg, no new weight to report. Bowel Motility:No BM reported. Labs Reviewed: Glu 214, Cr 0.6, K 3.3,Alb 3.0 Meds Noted: Folic Acid, Librium, Thiamine, Lovenox, NovoLog, Lantus. Skin: WNL Additional Notes: Patient is alert, Precedex has been discontinued. Tolerating tube feedings of Glucerna 1.2 at 70 ml/hr, providing 1849 kcals/92 gms protein/1240 ml water. Flush 30 ml q 4 hours. Plans for MBS today. Will monitor weight, labs, skin, tube feedings tolerance, meds every Wednesday and Wednesday.
--- NOTE | 2023-08-13 15:07 | PCSTNOTE ---
Please refer to the Bedside Swallow Evaluation in the EMR. Please note, silent aspiration cannot be ruled out at bedside.
--- NOTE | 2023-08-13 15:07 | PCSTNOTE ---
Please refer to the Bedside Swallow Evaluation in the EMR. Please note, silent aspiration cannot be ruled out at bedside.
[2023-08-13] MEDS: METOPROLOL TARTRATE INJ 5 MG/5 ML VIAL IV PUSH (17:00)
[2023-08-13 17:03] LABS: Glucose Point of Care 267 mg/dl (65-105)
[2023-08-13] MEDS: ACETAMINOPHEN 325 MG TABLET 650 MG PO (17:37)
[2023-08-13] MEDS: INSULIN GLARGINE (*BKC) 100 UNITS/ML 9 UNITS SUB-Q (21:22)
[2023-08-13 21:30] LABS: Glucose Point of Care 255 mg/dl (65-105)
[2023-08-14] VITALS (7 sets, daily range): BP systolic 115–153; BP diastolic 67–88; PULSE 90–127; RESP 13–22; TEMP 36.5–37.2; O2SAT 97–100
[2023-08-14] MEDS: CENTRAL LINE FLUSH 10 ML IV PUSH ×3 (05:23→22:22)
[2023-08-14] MEDS: chlordiazePOXIDE (*CRX) 25 MG CAPSULE FEED TUBE (05:23)
[2023-08-14 05:34] LABS: Basophils Percent Auto 0.6 % (0.2-1.2); Eosinophils Absolute Auto 0.1 K/mm3 (0-0.3); Eosinophils Percent Auto 1.4 % (0-4.4); Hemoglobin 10.3 g/dL (14.0-18.0); Immature Granulocyte Absolute 0.04 K/mm3 (0.00-0.031); Immature Granulocyte Percent A 0.6 % (0-0.5); Lymphocytes Percent Auto 22.6 % (18.3-44.2); Mean Corpuscular HGB Conc 34.3 g/dl (32-36); Mean Corpuscular Hemoglobin 32.5 pg (26-34); Mean Corpuscular Volume 94.6 fl (80-100); Mean Platelet Volume 9.4 fl (7.4-10.4); Monocytes Absolute Auto 0.8 K/mm3 (0.1-0.6); Monocytes Percent Auto 11.8 % (2.6-8.5); Neutrophils Absolute Auto 4.2 K/mm3 (1.3-6.7); Platelet Count Result 371 k/mm3 (150-375); Red Blood Count 3.17 M/mm3 (4.6-6.20); Red Cell Distribution Width 10.6 % (11.5-14.5); White Blood Count 6.6 K/mm3 (4.5-10.0)
[2023-08-14 05:49] LABS: Alanine Aminotransferase 20 U/L (6-50); Albumin Level 2.8 g/dL (3.5-5.1); Alkaline Phosphatase 74 U/L (38-126); Anion Gap 2 mmol/L (8-16); Aspartate Amino Transferase 29 U/L (17-59); Bilirubin,Total 0.8 mg/dL (0.2-1.3); Blood Urea Nitrogen 11 mg/dL (9-20); Calcium 7.5 mg/dL (8.4-10.2); Carbon Dioxide 35 mmol/L (22-30); Chloride 91 mmol/L (98-107); Estimated CRCL calculation 120 ml/min; Estimated Glomerular Filt Rate > 60; Glucose 301 mg/dL (65-110); Magnesium 1.8 mg/dL (1.6-2.3); Phosphorus 2.2 mg/dL (2.5-4.5); Potassium 3.2 mmol/L (3.4-5.0); Sodium 128 mmol/L (137-145)
[2023-08-14] MEDS: ARIPiprazole 2 MG TABLET PO (08:10)
[2023-08-14] MEDS: ENOXAPARIN 40 MG/0.4 ML SYRINGE SUB-Q (08:10)
[2023-08-14] MEDS: lisinopriL 20 MG TABLET 40 MG PO (08:10)
[2023-08-14] MEDS: FLUoxetine HCL 20 MG CAPSULE PO (08:11)
[2023-08-14] MEDS: THIAMINE HCL 200 MG/2 ML VIAL 100 MG IV PUSH (08:11)
[2023-08-14] MEDS: FOLIC ACID 1 MG/0.2 ML INJ IV PUSH (08:13)
[2023-08-14] MEDS: INSULIN ASPART (*BKC) 100 UNITS/ML SUB-Q (08:13)
--- NOTE | 2023-08-14 10:24 | PM.IMPN ---
Progress Note: A&P Assessment and Plan (1) Encephalopathy: Code(s): G93.40 - Encephalopathy, unspecified Status: Acute Assessment and Plan: Patient was made ICU status 06/12/2024 at around 1:30 a.m. as he was still delirious, agitated, encephalopathic likely related to alcohol withdrawal -patient has been in the hospital since 08/07/2023 -08/07/[address] showed cerebral arthrosclerosis, no skull fracture or acute intracranial findings 08/12/2023: CT of the brain did not show any acute intracranial findings Resolved (2) Alcohol withdrawal seizure with delirium: Code(s): F10.931 - Alcohol use, unspecified with withdrawal delirium; R56.9 - Unspecified convulsions Status: Acute Assessment and Plan: Patient presented with tremors, tachycardia, confusion -was initially on Ativan, Librium with no improvement -08/12: Early this morning was started Precedex infusion -currently of Precedex infusion -continue folic acid and thiamine 08/14: weaned off precedex, decrease librium from 25 q6 to 10 q6 (3) Benign essential HTN: Code(s): I10 - Essential (primary) hypertension Status: Chronic Assessment and Plan: Patient's blood pressures are stable on Precedex infusion -patient does have p.r.n. hydralazine and p.r.n. metoprolol 08/14: Blood pressures reviewed, slightly high, off Precedex, continue to monitor (4) Diabetes type 1, controlled: Qualifiers: Diabetes mellitus complication status: without complication Qualified Code(s): E10.9 - Type 1 diabetes mellitus without complications Code(s): E10.9 - Type 1 diabetes mellitus without complications Status: Chronic Assessment and Plan: Restart insulin pump, documentation per paper chart, A1c is 6.0 sliding scale insulin, Accu-Chek (5) Hypokalemia: Code(s): E87.6 - Hypokalemia Status: Acute Assessment and Plan: Patient hypokalemic likely related to alcoholism -will aggressively replace potassium -will also replace magnesium (6) Abnormal chest xray: Code(s): R93.89 - Abnormal findings on diagnostic imaging of other specified body structures Status: Acute Assessment and Plan: Chest x-ray this morning: Hazy airspace disease bilaterally, as above. Correlate for pulmonary edema versus multifocal infection. Afebrile, normal WBC count, normal neutrophil count -continue Unasyn for possible aspiration pneumonitis/pneumonia (08/09) -responded well to Lasix on 08/12, chest x-ray improved Plan DVT prophylaxis: Lovenox Stress ulcer prophylaxis: Not indicated Nutrition: Regular diet Code Status: Full code Subjective Date/time seen: 08/14/23 10:24 Interval history: 47yo male with DM, HTN, OZZY and alcoholism here for altered mental status from alcohol withdrawal. No overnight events noted. No chest pain or shortness of breath. No nausea, vomiting or diarrhea. No fevers or chills. Off Precedex and this morning. Review of Systems Review of Systems: 12 point review of systems was assessed and was negative except as noted in the HPI Exam Narrative: General: No acute distress, alert and oriented per baseline HEENT: Atraumatic, normocephalic, mucous membranes moist CV: Regular rate and rhythm, S1, S2 Lungs: Coarse breath sounds throughout, no wheeze Abdomen: Soft, nontender, nondistended Extremities: Normal to inspection Skin: No rashes noted, no lesions or wounds seen Psych: Euthymic, normal affect Objective Data Vital Signs Vital Signs: Vital Signs - 24 hr 08/13/23 12:00 08/13/23 12:00 08/13/23 12:00 Temperature 100.2 F H Pulse Rate 106 H 106 H 106 H Respiratory Rate 15 15 Blood Pressure 144/80 H Pulse Oximetry 97 97 Oxygen Delivery Nasal Cannula Oxygen Flow Rate 1 08/13/23 16:00 08/13/23 16:00 08/13/23 17:00 Temperature 100.4 F H Pulse Rate 106 H 106 H 121 H Respiratory R
[2023-08-14 10:50] LABS: Glucose Point of Care 257 mg/dl (65-105)
[2023-08-14] MEDS: chlordiazePOXIDE (*CRX) 10 MG CAPSULE PO ×2 (11:45→17:32)
[2023-08-14] MEDS: POTASSIUM CHLORIDE 20 MEQ ER TABLET 40 MEQ PO (11:45)
[2023-08-14 11:51] LABS: Glucose Point of Care 243 mg/dl (65-105)
--- NOTE | 2023-08-14 13:17 | PC.NURSE ---
This patient, Eduard Dc, was transferred to [ [id number]] on 08/14/23 at 1317. Personal belongings sent with patient. Report given to [ Elisha QUACH]. Appropriate documentation sent with patient.
[2023-08-14 16:35] LABS: Glucose Point of Care 41 mg/dl (65-105)
[2023-08-14 16:56] LABS: Glucose Point of Care 46 mg/dl (65-105)
[2023-08-14 17:35] LABS: Glucose Point of Care 115 mg/dl (65-105)
[2023-08-14 21:50] LABS: Glucose Point of Care 213 mg/dl (65-105)
[2023-08-15] MEDS: chlordiazePOXIDE (*CRX) 10 MG CAPSULE PO ×2 (00:06→06:01)
[2023-08-15 05:34] VITALS: BP 155/83; PULSE 81; RESP 13; TEMP 36.6; O2SAT 99
[2023-08-15] MEDS: HOME MEDICATION 1 EACH XX (06:01)
[2023-08-15] MEDS: CENTRAL LINE FLUSH 10 ML IV PUSH (06:01)
[2023-08-15 06:29] LABS: Basophils Absolute Auto 0.1 K/mm3 (0.0-0.1); Basophils Percent Auto 0.9 % (0.2-1.2); Eosinophils Absolute Auto 0.1 K/mm3 (0-0.3); Eosinophils Percent Auto 2.1 % (0-4.4); Hematocrit 29.9 % (42.0-52.0); Hemoglobin 10.4 g/dL (14.0-18.0); Immature Granulocyte Absolute 0.03 K/mm3 (0.00-0.031); Immature Granulocyte Percent A 0.5 % (0-0.5); Lymphocytes Absolute Auto 1.69 K/mm3 (0.9-3.2); Lymphocytes Percent Auto 29.8 % (18.3-44.2); Mean Corpuscular HGB Conc 34.8 g/dl (32-36); Mean Corpuscular Hemoglobin 32.9 pg (26-34); Mean Corpuscular Volume 94.6 fl (80-100); Mean Platelet Volume 9.5 fl (7.4-10.4); Monocytes Absolute Auto 0.5 K/mm3 (0.1-0.6); Monocytes Percent Auto 9.5 % (2.6-8.5); Neutrophils Absolute Auto 3.2 K/mm3 (1.3-6.7); Neutrophils Percent Auto 57.2 % (45.5-73.1); Platelet Count Result 412 k/mm3 (150-375); Red Blood Count 3.16 M/mm3 (4.6-6.20); Red Cell Distribution Width 10.6 % (11.5-14.5); White Blood Count 5.7 K/mm3 (4.5-10.0)
[2023-08-15 06:33] LABS: Alanine Aminotransferase 22 U/L (6-50); Albumin Level 2.8 g/dL (3.5-5.1); Alkaline Phosphatase 64 U/L (38-126); Anion Gap 4 mmol/L (8-16); Aspartate Amino Transferase 34 U/L (17-59); Bilirubin,Total 0.4 mg/dL (0.2-1.3); Blood Urea Nitrogen 7 mg/dL (9-20); Carbon Dioxide 34 mmol/L (22-30); Chloride 97 mmol/L (98-107); Estimated CRCL calculation 121 ml/min; Estimated Glomerular Filt Rate > 60; Glucose 150 mg/dL (65-110); Potassium 3.3 mmol/L (3.4-5.0); Sodium 135 mmol/L (137-145)
[2023-08-15 07:58] LABS: Glucose Point of Care 115 mg/dl (65-105)
[2023-08-15] MEDS: lisinopriL 20 MG TABLET 40 MG PO (08:43)
[2023-08-15] MEDS: FLUoxetine HCL 20 MG CAPSULE PO (08:43)
[2023-08-15] MEDS: ARIPiprazole 2 MG TABLET PO (08:43)
[2023-08-15] MEDS: FOLIC ACID 1 MG/0.2 ML INJ IV PUSH (08:43)
[2023-08-15] MEDS: ENOXAPARIN 40 MG/0.4 ML SYRINGE SUB-Q (08:43)
[2023-08-15] MEDS: THIAMINE HCL 200 MG/2 ML VIAL 100 MG IV PUSH (08:44)
--- NOTE | 2023-08-15 10:19 | PCPTNOTE ---
08/15/23 MW PT -eval completed. patient at baseline
[2023-08-15 11:25] LABS: Glucose Point of Care 99 mg/dl (65-105)
[2023-08-15 14:00] VITALS: BP 141/80; PULSE 96; RESP 16; TEMP 36.9; O2SAT 100
--- NOTE | 2023-08-15 16:09 | PM.DS ---
DS: Admitting Diagnosis Discharge Date 08/15/23 Admitting Diagnosis Altered mental status DS: Discharge Diagnosis Discharge Diagnosis (1) Encephalopathy: Code(s): G93.40 - Encephalopathy, unspecified Status: Acute Assessment and Plan: Patient was made ICU status 06/12/2024 at around 1:30 a.m. as he was still delirious, agitated, encephalopathic likely related to alcohol withdrawal -patient has been in the hospital since 08/07/2023 -08/07/[address] showed cerebral arthrosclerosis, no skull fracture or acute intracranial findings 08/12/2023: CT of the brain did not show any acute intracranial findings Resolved (2) Alcohol withdrawal seizure with delirium: Code(s): F10.931 - Alcohol use, unspecified with withdrawal delirium; R56.9 - Unspecified convulsions Status: Acute Assessment and Plan: Patient presented with tremors, tachycardia, confusion -was initially on Ativan, Librium with no improvement -08/12: Early this morning was started Precedex infusion -currently of Precedex infusion -continue folic acid and thiamine 08/14: weaned off precedex, decrease librium from 25 q6 to 10 q6 (3) Benign essential HTN: Code(s): I10 - Essential (primary) hypertension Status: Chronic Assessment and Plan: Patient's blood pressures are stable on Precedex infusion -patient does have p.r.n. hydralazine and p.r.n. metoprolol 08/14: Blood pressures reviewed, slightly high, off Precedex, continue to monitor (4) Diabetes type 1, controlled: Qualifiers: Diabetes mellitus complication status: without complication Qualified Code(s): E10.9 - Type 1 diabetes mellitus without complications Code(s): E10.9 - Type 1 diabetes mellitus without complications Status: Chronic Assessment and Plan: Restart insulin pump, documentation per paper chart, A1c is 6.0 sliding scale insulin, Accu-Chek (5) Hypokalemia: Code(s): E87.6 - Hypokalemia Status: Acute Assessment and Plan: Patient hypokalemic likely related to alcoholism -will aggressively replace potassium -will also replace magnesium (6) Abnormal chest xray: Code(s): R93.89 - Abnormal findings on diagnostic imaging of other specified body structures Status: Acute Assessment and Plan: Chest x-ray this morning: Hazy airspace disease bilaterally, as above. Correlate for pulmonary edema versus multifocal infection. Afebrile, normal WBC count, normal neutrophil count -continue Unasyn for possible aspiration pneumonitis/pneumonia (08/09) -responded well to Lasix on 08/12, chest x-ray improved Plan DVT prophylaxis: Lovenox Stress ulcer prophylaxis: Not indicated Nutrition: Regular diet Code Status: Full code DS: Summary Hospital Course Hospital Course: 47yo male with DM, HTN, OZZY and alcoholism here for altered mental status from alcohol withdrawal. Patient was made ICU status 06/12/2024 at around 1:30 a.m. as he was still delirious, agitated, encephalopathic likely related to alcohol withdrawal -patient has been in the hospital since 08/07/2023 -08/07/[address] showed cerebral arthrosclerosis, no skull fracture or acute intracranial findings 08/12/2023: CT of the brain did not show any acute intracranial findings Resolved Patient presented with tremors, tachycardia, confusion -was initially on Ativan, Librium with no improvement -08/12:? Early this morning was started Precedex infusion -currently of Precedex infusion -continue folic acid and thiamine 08/14: weaned off precedex, decrease librium from 25 q6 to 10 q6 Able to be weaned off Librium, CIWA remained low. Patient was discharged in stable condition with close outpatient follow-up. Time Spent with Patient Time attestation: Total time spent providing and/or coordinating discharge services: Exam Narrative: General: No acute distress, alert and oriented per baseline YASIR
== END 2023-08-15 17:45 | disposition home or self-care (01) | DRG 896 ==
LOC: ANHED 08-07 01:01 → ANHIMU 08-07 02:26 → ANHICU 08-07 05:36 → ANH3MEDSUR 08-14 13:16
PROVIDERS: Internal Medicine; Admitting Provider Internal Medicine; Emergency Provider Emergency Medicine; PCP Emergency Medicine; Visit Provider Student in an Organized Health Care Education/Training Program
DX: F10.231 Alcohol dependence with withdrawal delirium (principal); J69.0 Pneumonitis due to inhalation of food and vomit; E87.1 Hypo-osmolality and hyponatremia; R56.9 Unspecified convulsions; K70.10 Alcoholic hepatitis without ascites; G31.2 Degeneration of nervous system due to alcohol; E87.6 Hypokalemia; G47.33 Obstructive sleep apnea (adult) (pediatric); E10.9 Type 1 diabetes mellitus without complications; I10 Essential (primary) hypertension; F32.9 Major depressive disorder, single episode, unspecified; Z96.41 Presence of insulin pump (external) (internal); Z79.4 Long term (current) use of insulin
CPT/HCPCS: 36415; 36569; 36600; 70450; 71045; 80048; 80053; 80069; 80074; 80307; 81001; 82140; 82550; 82570; 82805; 82948; 83036; 83605; 83735; 83880; 84100; 84132; 84146; 84295; 84300; 84439; 84443; 84480; 85025; 85055; 85610; 85730; 87040; 87641; 92610; 92611; 93005; 96361; 96365; 96366; 96367; 96374; 96375; 96376; 97161; 97165; 99285; A9270; G0378; J0295; J0360; J1650; J1815; J1940; J2060; J2359; J2405; J3370; J3411; J3475; J3480; J7030; J7040; J7042; J7050; J7060; J7070

== ENCOUNTER 2024-01-01 09:05 | Inpatient (IN) | payer OTHER, SELFPAY ==
[2024-01-01] VITALS (67 sets, daily range): BP systolic 94–230; BP diastolic 59–118; PULSE 85–159; RESP 14–35; TEMP 36.2–37.3; O2SAT 90–100; BMI 24.9
--- NOTE | ~2024-01-01 | XR_ITS ---
XR chest ET placement DATE: 01/01/2024 12:54 INDICATION: ET and OG tube placement. Respiratory difficulty. TECHNIQUE: Portable supine AP chest on 01/01/2024 at 1245 hours COMPARISON: 08/13/2023 portable AP chest FINDINGS: ET tube tip is 2 cm above iwona; ideal range is 2-5 cm. NG tube in gastric fundus, the proximal side port approximately 7 cm distal to the diaphragmatic hiat us. Status post sternotomy. Normal heart size. No hilar or mediastinal enlargement. No pulmonary infiltrate or consolidation, pleural effusion or pulmonary vascular congestion or pneumo thorax. Degenerative spurring of the thoracic spine. IMPRESSION: ET and OG tubes in satisfactory position Interval resolution of bilateral pulmonary infiltrates since 08/13/2023 Reviewed, dictated and finalized at [facility] Reviewed, dictated and finalized at [facility].
--- NOTE | ~2024-01-01 | XR_ITS ---
Portable chest x-ray Comparison: 01/03/2024 Clinical History: Respiratory failure Findings: Endotracheal tube and NG tube and right-sided PICC line are in place. Possible mild centra l congestive change versus other mild haziness the right perihilar region. Left lung clear. Cardiome diastinal silhouette is stable. Bones and soft tissues are unremarkable. Impression: Support tubes, as above. Mild haziness right perihilar region, nonspecific. Correlate for vascular congestion or possibly deve loping pneumonia. Reviewed, dictated and finalized at location M. Impression: Support tubes, as above. Mild haziness right perihilar region, nonspecific. Correlate for vascular conge stion or possibly developing pneumonia.
--- NOTE | ~2024-01-01 | XR_ITS ---
EXAMINATION: XR chest PICC line DATE: 01/03/2024 15:01 INDICATION: Central line placement. TECHNIQUE: A single frontal view of the chest was obtained. COMPARISON: Chest single view 01/03/2024 at 5:25 AM FINDINGS: There is no pneumonia, pleural effusion, or pneumothorax. The heart size is normal. The end otracheal tube tip is 3.6 cm above the iwona. The nasogastric tube tip is in the stomach. A right up per extremity peripherally inserted central venous catheter (PICC) is seen with tip at the superior c avoatrial junction. Median sternotomy wires are noted. IMPRESSION: 1. PICC tip at the superior cavoatrial junction. Reviewed, dictated and finalized at location A.
--- NOTE | ~2024-01-01 | XR_ITS ---
Portable chest x-ray Comparison: 01/02/2024 Clinical History: Mechanical ventilation Findings: Endotracheal tube and NG tube are in place. Lungs are clear, without focal consolidation o r pleural effusion. Cardiomediastinal silhouette is stable. Bones and soft tissues are unremarkable. Impression: Clear lungs. Support tubes, as above. Reviewed, dictated and finalized at location . Impression: Clear lungs. Support tubes, as above.
--- NOTE | ~2024-01-01 | US_ITS ---
EXAMINATION: US abdomen limited DATE: 01/01/2024 15:39 INDICATION: Abnormal liver function tests. TECHNIQUE: Multiple grayscale and Doppler ultrasound images of the abdomen were obtained. COMPARISON: Ultrasound 11/05/2019 FINDINGS: The visualized portions of the head, body, and tail of the pancreas are normal. There is di ffuse hepatic steatosis. There is normal flow in main portal vein. The gallbladder is normal in size. No gallstones or gallbladder wall thickening. There is no sonographic Rodas's sign. The common duct is normal and measures 5 mm. IMPRESSION: 1. Diffuse hepatic steatosis. Reviewed, dictated and finalized at location E.
--- NOTE | ~2024-01-01 | XR_ITS ---
XR chest 1V portable 01/02/2024 05:51 Indication: Respiratory failure Procedure: AP portable chest Comparison: Comparison to multiple prior studies sequentially, with oldest reviewed study dated 01/2024. Findings: Status post median sternotomy for CABG. Heart size normal. NG tube in the stomach. Status p ost median sternotomy for CABG. No acute osseous abnormality. Impression: 1: No acute cardiopulmonary disease. Reviewed, dictated and finalized at location B. Impression: 1: No acute cardiopulmonary disease.
--- NOTE | ~2024-01-01 | XR_ITS ---
Portable chest x-ray Comparison: 01/04/2024 Clinical History: Respiratory failure Findings: NG tube and right-sided PICC line are in place. Lungs are clear, without focal consolidati on or pleural effusion. Cardiomediastinal silhouette is stable. Bones and soft tissues are unremarka ble. Impression: Clear lungs. Support tubes, as above. Reviewed, dictated and finalized at location M. Impression: Clear lungs. Support tubes, as above.
[2024-01-01 09:38] LABS: Basophils Percent Auto 0.2 % (0.2-1.2); Eosinophils Percent Auto 0.2 % (0-4.4); Hematocrit 33.8 % (42.0-52.0); Hemoglobin 13.1 g/dL (14.0-18.0); Immature Granulocyte Absolute 0.05 K/mm3 (0.00-0.031); Immature Granulocyte Percent A 0.4 % (0-0.5); Lymphocytes Absolute Auto 1.16 K/mm3 (0.9-3.2); Lymphocytes Percent Auto 9.7 % (18.3-44.2); Mean Corpuscular Hemoglobin 31.3 pg (26-34); Mean Corpuscular Volume 80.9 fl (80-100); Mean Platelet Volume 9.7 fl (7.4-10.4); Monocytes Absolute Auto 1.2 K/mm3 (0.1-0.6); Monocytes Percent Auto 9.9 % (2.6-8.5); Neutrophils Absolute Auto 9.5 K/mm3 (1.3-6.7); Neutrophils Percent Auto 79.6 % (45.5-73.1); Platelet Count Result 231 k/mm3 (150-375); Red Blood Count 4.18 M/mm3 (4.6-6.20); Red Cell Distribution Width 12.3 % (11.5-14.5)
[2024-01-01 09:57] LABS: Alanine Aminotransferase 61 U/L (6-50); Albumin Level 4.2 g/dL (3.5-5.1); Alkaline Phosphatase 90 U/L (38-126); Anion Gap 10 mmol/L (4-12); Aspartate Amino Transferase 92 U/L (17-59); Blood Urea Nitrogen 10 mg/dL (9-20); Calcium 8.1 mg/dL (8.4-10.2); Carbon Dioxide 32 mmol/L (22-30); Chloride 63 mmol/L (98-107); Estimated CRCL calculation 124 ml/min; Estimated Glomerular Filt Rate > 60; Glucose 118 mg/dL (65-110); Lipase 35 U/L (23-300); Potassium 3.1 mmol/L (3.4-5.0); Sodium 105 mmol/L (137-145)
[2024-01-01] MEDS: THIAMINE HCL 200 MG/2 ML VIAL 100 MG IV PUSH (10:07)
[2024-01-01 10:15] LABS: Mean Corpuscular HGB Conc 38.8 g/dl (32-36)
[2024-01-01 10:18] LABS: Magnesium 1.7 mg/dL (1.6-2.3)
--- NOTE | 2024-01-01 10:42 | ED.ALCOHOL ---
HPI - Alcohol General Chief Complaint: Alcohol Stated Complaint: Detox Time Seen by Provider: 01/01/24 09:58 History of Present Illness HPI narrative: Male with history of alcohol abuse present to the emergency department for evaluation for alcohol withdrawal. Patient states that he began drinking again a few weeks ago. Patient drinks vodka. Patient states he does suffer from depression and anxiety. Patient stopped drinking approximately 4 days ago. Patient states he does go through alcohol withdrawal but denies any prior history of seizures. Patient states he has been eating and drinking okay but perhaps not as much as he should. Patient did report having a [employer] bar today. Patient denies any current nausea vomiting. Patient denies any chest pain shortness of breath. Patient denies any associated abdominal pain. Related Data Home Medications Medication Instructions Recorded Confirmed hydrochlorothiazide 25 mg tablet 25 mg PO DAILY 10/13/19 01/01/24 lisinopril 40 mg tablet 40 mg PO DAILY 10/13/19 01/01/24 insulin lispro 100 unit/mL See Rx Instructions .Route .COMPLEX 11/04/19 01/01/24 subcutaneous solution (Humalog U-100 Insulin) bupropion HCl 300 mg 24 hr tablet, 300 mg PO DAILY 09/14/22 01/01/24 extended release trazodone 50 mg tablet 100 mg PO HS PRN Insomnia 09/14/22 01/01/24 aripiprazole 5 mg tablet 5 mg PO DAILY 01/01/24 01/01/24 fluoxetine 20 mg capsule 30 mg PO DAILY 01/01/24 01/01/24 naltrexone 50 mg tablet 50 mg PO DAILY 01/01/24 01/01/24 Allergies Allergy/AdvReac Type Severity Reaction Status Date / Time No Known Allergies Allergy Verified 01/01/24 09:15 Review of Systems Review of Systems: All systems reviewed & are unremarkable except as noted in HPI and below PMFSH Past Medical History Medical History (Updated 01/01/24 @ 18:01 by Yanira Johnson MD) Alcoholism Hyperlipidemia Hypertension Insulin dependent diabetes mellitus Major depression, recurrent, chronic Obstructive sleep apnea on CPAP Pneumonia Seasonal allergies Tracheal stenosis Surgical History Surgical History History of resection and anastomosis of trachea Family History Family History Father Family history of hypercholesterolemia Family history of cardiovascular disease COPD (chronic obstructive pulmonary disease) Alcoholism Mother Hypertension Social History Social History (Updated 01/01/24 @ 15:32 by Cassie Simmons PA-C) Social History: Surrogate medical decision maker: Pilar Dc, spouse. Code status: Full code. Smoking status: Never smoker Second hand tobacco smoke exposure: Yes (father) Alcohol intake: current Substance use: never Substance use type: does not use Do You Feel Safe in your Home?: Yes Lack of Transportation: No Lack of Food: Never True Current Housing: I Have Housing Concerned About Future Housing: No Difficulty Paying Gas/Electric Bills: No Difficulty Paying for Meds: No Currently Unemployed: No Education: Master's Degree or Higher Difficulty w/ Childcare or Family Care: No Living arrangements: with family Additional living arrangements comments: Resides with spouse and 3 children in [place]. 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 Spiritual care concerns: No Agree to blood products: Yes Exam Narrative: APPEARANCE: Diaphoretic and ill appearing HEAD: normocephalic, atraumatic. EYES: PERRLA/EOMI, conjunctivae clear. NOSE: Normal no drainage EARS:TMS clear with good light reflex. THROAT: Pharynx clear, no exudate. NECK: Supple. No adenopathy, no masses. RESPIRATORY: Airway patent, respirations nonlabored. Clear to auscultation bilaterally, no rales, rhonchi, wheezing. CARDIOVASCULAR: Regular rate and rhythm without murmurs rubs or gal
[2024-01-01] MEDS: LORazepam INJ (*CRX) 2 MG/ML VIAL IV PUSH ×5 (11:00→21:18)
[2024-01-01 11:07] LABS: Thyroid Stimulating Hormone Reflex 0.262 uIU/mL (0.465-4.68)
[2024-01-01 11:31] LABS: Anion Gap 13 mmol/L (4-12); Blood Urea Nitrogen 11 mg/dL (9-20); Calcium 8.1 mg/dL (8.4-10.2); Carbon Dioxide 29 mmol/L (22-30); Chloride 61 mmol/L (98-107); Estimated CRCL calculation 124 ml/min; Estimated Glomerular Filt Rate > 60; Glucose 168 mg/dL (65-110); Potassium 3.2 mmol/L (3.4-5.0); Sodium 103 mmol/L (137-145)
[2024-01-01 11:42] LABS: Folic Acid 12.9 ng/mL (2.76->20)
[2024-01-01] MEDS: LORazepam INJ (*CRX) 2 MG/ML VIAL (11:55)
[2024-01-01 11:57] LABS: Free T4 Free Thyroxine Reflex 2.29 ng/dL (0.78-2.19)
[2024-01-01] MEDS: MIDAZOLAM HCL (*CRX) 2 MG/2 ML VIAL IV PUSH (11:59)
[2024-01-01] MEDS: CALCIUM GLUCONATE 1,000 MG/10 ML VIAL 1000 MG IV PUSH (12:07)
[2024-01-01 12:08] LABS: Ethanol 48 mg/dL (<10)
[2024-01-01 12:08] LABS: Glucose Point of Care 216 mg/dl (65-105)
[2024-01-01] MEDS: SODIUM CHLORIDE 3% 500 ML 30 ML IV CONT (12:15)
[2024-01-01] MEDS: dexmedeTOMIDine 400 MCG/100 ML 400 MCG/100 ML BAG 7.1 MCG IV CONT (12:28)
[2024-01-01] MEDS: PROPOFOL IV EMULSION 100 ML 2.13 MG IV CONT (12:49)
[2024-01-01 13:25] LABS: Arterial Blood Gas Vent Mode CMV; Arterial Blood Gas Ventilator rate 16 /MIN; Base Excess ABG -7.5 mEq/l (+/-2.0); Device VENTILATOR; Fractional Inspired Oxygen 30 %; HCO3 ABG 15.6 mEq/l (22.0-26.0); Modified Allen's Test Pass; Oxygen Saturation ABG 98.1 % (95.0-100.0); Oxyhemoglobin 97.6 % THb (90.0-100.0); PCO2 ABG 25.7 mmHg (35.0-45.0); PO2 ABG 108.7 mmHg (80.0-100.0); PO2 FiO2 Ratio Arterial Blood 3.62 %; Site Drawn LEFT RADIAL; Total Hemoglobin 12.3 g/dL (12.0-18.0); pH ABG 7.402 (7.350-7.450)
[2024-01-01 13:26] LABS: Arterial Blood Gas PEEP 5 cmH2O; Arterial Blood Gas Tidal Volume 550 ml
[2024-01-01 13:33] LABS: Appearance Urine Clear (Clear); Bacteria Urine None Seen /hpf; Bilirubin Urine Negative (Negative); Blood Urine Negative (Negative); Color Urine Yellow (Yellow); Glucose Urine UA Trace mg/dL (Negative); Ketones Urine 3+ mg/dL (Negative); Leukocyte Esterase Ur Negative LEU/UL (Negative); Nitrate Urine Negative (Negative); Protein Urine 1+ mg/dL (Negative); RBC Urine 0-2 /hpf (0-2); Specific Grav Ur 1.023 (1.001-1.035); Squamous Epithelial Cell Urine None Seen /hpf (Few); WBC Urine 0-5 /hpf (0-3)
--- NOTE | 2024-01-01 13:36 | PC.NURSE ---
patient ambulated to room upon arrival, tremors noted, CIWA 16 at that time. tremors getting worse, patient extremely diaphoretic and anxious, provider aware, new orders received. patient intubated with 7.5 ET and secured. tolerated well. patient sedated. medications infusing as ordered
[2024-01-01 13:43] LABS: Add Urine Microscopic? YES
--- NOTE | 2024-01-01 14:04 | ADMGEN ---
This patient, Eduard Dc, was admitted to Intensive Care Unit-7. Patient/family oriented to hospital policies and general routines including ID bracelet, bed and alarms, visiting hours, pain management, procedures, bathroom and other care routines, personal items, smoking policy, room service/diet, and visiting hours. Information on how to activate the Rapid Response Team has been discussed. Patient/Family are encouraged to report perceived risks to care and to ask questions if they do not understand what they are told or what they should do.
[2024-01-01 14:23] LABS: Anion Gap 21 mmol/L (4-12); Blood Urea Nitrogen 14 mg/dL (9-20); Calcium 8.1 mg/dL (8.4-10.2); Carbon Dioxide 20 mmol/L (22-30); Chloride 63 mmol/L (98-107); Estimated CRCL calculation 77 ml/min; Estimated Glomerular Filt Rate > 60; Glucose 256 mg/dL (65-110); Potassium 3.4 mmol/L (3.4-5.0); Sodium 104 mmol/L (137-145); Triglycerides 120 mg/dL (<150)
--- NOTE | 2024-01-01 14:29 | WPDCNINT ---
Assessment and Plan Assessment and plan (1) Respiratory failure: Code(s): J96.90 - Respiratory failure, unspecified, unspecified whether with hypoxia or hypercapnia Status: Acute Assessment and Plan: Patient presented with alcohol withdrawal symptoms, received Ativan and Precedex infusion and was more somnolent, was intubated for airway protection. -Currently on CMV mode of ventilation, peep of 5 and 30% FiO2 with adequate O2 sats -chest x-ray reviewed clear lungs -post intubation ABGs have been ordered -sedated with propofol infusion, maintain RASS of 0 to -2. Daily sedation vacation (2) Alcohol withdrawal syndrome: Code(s): F10.239 - Alcohol dependence with withdrawal, unspecified Status: Acute Assessment and Plan: Patient presented with tremors, tachycardia, diaphoresis, anxiety. Patient has been drinking vodka daily in large quantities, he has stopped drinking since the last 4 days. -patient was given Ativan and started on Precedex infusion, was more somnolent and was intubated for airway protection -currently on propofol -p.r.n. Ativan has been ordered (3) Hyponatremia: Code(s): E87.1 - Hypo-osmolality and hyponatremia Status: Acute Assessment and Plan: Severe hyponatremia with sodium levels of 103 on admission -nephrology has been consulted -started patient on 3% saline -Serial BMP q.3 hours, -discussed with dock worker, will increase sodium levels by 6-8 mEq/ 24 hours -continue to monitor urine output, electrolytes and renal function (4) Electrolyte imbalance: Code(s): E87.8 - Other disorders of electrolyte and fluid balance, not elsewhere classified Status: Acute Assessment and Plan: Hypokalemia with potassium of 3.2 at admission. Will replace potassium (5) Benign essential HTN: Code(s): I10 - Essential (primary) hypertension Status: Chronic Assessment and Plan: Currently patient on positive pressure ventilation and propofol infusion for sedation -blood pressures have been stable, will hold all blood pressure medications for now. Takes lisinopril at home (6) Diabetes type 1, controlled: Qualifiers: Diabetes mellitus complication status: without complication Qualified Code(s): E10.9 - Type 1 diabetes mellitus without complications Code(s): E10.9 - Type 1 diabetes mellitus without complications Status: Chronic Assessment and Plan: Accu-Cheks and sliding scale insulin -check hemoglobin A1c -patient has an insulin pump (7) OZZY (obstructive sleep apnea): Code(s): G47.33 - Obstructive sleep apnea (adult) (pediatric) Status: Acute Assessment and Plan: Patient's spouse stated that he normally uses CPAP but due to some insurance issues he has not used his CPAP since the beginning of December 2023 (8) Major depression, recurrent, chronic: Code(s): F33.9 - Major depressive disorder, recurrent, unspecified Status: Acute Assessment and Plan: Patient is on lorazepam, trazodone, aripiprazole, bupropion fluoxetine at home (9) Abnormal liver enzymes: Code(s): R74.8 - Abnormal levels of other serum enzymes Status: Acute Assessment and Plan: Likely related to alcohol abuse -continue to monitor -will check hepatitis panel and right upper quadrant ultrasound Plan DVT prophylaxis: Lovenox Stress ulcer prophylaxis: Protonix Nutrition: NPO for now Code Status: Full code Critical Care Time Spent: 49 minutes Discussed with dock worker Discussed with patient's Pilar at bedside and updated with patient's condition and plan of care. I answered all her questions Due to a high probability of clinically significant, life threatening deterioration, the patient required my highest level of preparedness to intervene emergently and I personally spent this critical care time directly and personally managing the patient. This critical care time included
[2024-01-01] MEDS: LACTATED RINGERS 1,000 ML 999 ML IV CONT (14:51)
[2024-01-01 14:56] LABS: Prothrombin Time 13.7 Seconds (11.1-14.7)
[2024-01-01 15:00] LABS: Creatine Kinase 356 U/L (55-170)
--- NOTE | 2024-01-01 15:03 | PM.CNNEP ---
Assessment and Plan Assessment and plan (1) Hyponatremia: Code(s): E87.1 - Hypo-osmolality and hyponatremia Status: Acute Assessment and Plan: quite severe on presentation with sodium level of 103 on presentation review on labs demonstrates he has had issues with this in the past (but to this extreme) given concerns of neurological symptoms prior to intubation, initiated on 3% saline follow serial BMPs to ensure overcorrection does not occur goal of therapy is a change of 6 - 8mmol/L in 24 hours (that would be around 111mmol/L by 11:00am tomorrow) risk factors for low sodium noted: alcohol abuse thyroid disease (?) -- TSH and FT4 results noted HCTZ use SSRI use check cortisol, SPEP, UPEP, kappa/lambda ratio, and serum/urine osmolality follow repeat sodium levels (2) Hypokalemia: Code(s): E87.6 - Hypokalemia Status: Acute Assessment and Plan: suspect due to total body depletion from poor oral intake replace as needed magneisum okay follow trend (3) Acute respiratory failure: Code(s): J96.00 - Acute respiratory failure, unspecified whether with hypoxia or hypercapnia Status: Acute Assessment and Plan: intubated for airway protection no pathology noted by chest imaging suspect related to alcohol withdrawal and sedation follow respiratory status (4) Alcohol withdrawal syndrome: Code(s): F10.239 - Alcohol dependence with withdrawal, unspecified Status: Acute Assessment and Plan: as evident by symptoms on admission: tremors tachycardia diaphoresis anxiety was drinking vodka daily in large quantities -- abruptly stopped drinking ~ 4 days ago initially treated with Ativan and Precedex now intubated and on propofol PRN ativan ordered (5) Benign essential HTN: Code(s): I10 - Essential (primary) hypertension Status: Chronic Assessment and Plan: initiated elevated on presentation (likely due to alcohol withdrawal) better readings noted with sedation holding BP medications at this time follow trend of hemodynamics (6) Abnormal liver enzymes: Code(s): R74.8 - Abnormal levels of other serum enzymes Status: Acute Assessment and Plan: presumably secondary to alcohol abuse follow trend of LFTs (7) Diabetes type 1, controlled: Qualifiers: Diabetes mellitus complication status: without complication Qualified Code(s): E10.9 - Type 1 diabetes mellitus without complications Code(s): E10.9 - Type 1 diabetes mellitus without complications Status: Chronic Assessment and Plan: follow accu-cheks usually on insulin pump as an outpatient glycemic control per hospitalist/vice president of procurement Discussed case with Dr. Tian and long extensive discussion with the ER physician, Dr. Keller, as well. I will continue to follow the patient with you while he remains hospitalized and make further recommendations as deemed necessary. Thank you for allowing me to participate in the care of this patient. History of Present Illness Reason for Consult Consult date: 01/01/24 Reason for consult: hyponatremia Chief Complaint Chief complaint: Hyponatremia,Alcohol Withdrawal History of Present Illness Narrative: All the information that I have obtained is from review of the electronic medical record as well as discussion with the ER physician earlier today as well as the vice president of procurement as I am unable to get any information from the patient as he is intubated and on mechanical ventilation. The patient is a 48-year-old male with a past medical history as outlined below who presented to [facility] Emergency room for further evaluation of alcohol withdrawal. The patient has a longstanding history of alcohol withdrawal Lower the last few years with his last hospitalization regarding this issue in August of 2023. the patient apparently had been binge
--- NOTE | 2024-01-01 15:03 | P.CONNP_ITS ---
Assessment and Plan Assessment and plan (1) Hyponatremia: Code(s): E87.1 - Hypo-osmolality and hyponatremia Status: Acute Assessment and Plan: * quite severe on presentation with sodium level of 103 on presentation * review on labs demonstrates he has had issues with this in the past (but to this extreme) * given concerns of neurological symptoms prior to intubation, initiated on 3% saline * follow serial BMPs to ensure overcorrection does not occur * goal of therapy is a change of 6 - 8mmol/L in 24 hours (that would be around 111mmol/L by 11:00am tomorrow) * risk factors for low sodium noted: * alcohol abuse * thyroid disease (?) -- TSH and FT4 results noted * HCTZ use * SSRI use * check cortisol, SPEP, UPEP, kappa/lambda ratio, and serum/urine osmolality * follow repeat sodium levels (2) Hypokalemia: Code(s): E87.6 - Hypokalemia Status: Acute Assessment and Plan: * suspect due to total body depletion from poor oral intake * replace as needed * magneisum okay * follow trend (3) Acute respiratory failure: Code(s): J96.00 - Acute respiratory failure, unspecified whether with hypoxia or hypercapnia Status: Acute Assessment and Plan: * intubated for airway protection * no pathology noted by chest imaging * suspect related to alcohol withdrawal and sedation * follow respiratory status (4) Alcohol withdrawal syndrome: Code(s): F10.239 - Alcohol dependence with withdrawal, unspecified Status: Acute Assessment and Plan: * as evident by symptoms on admission: * tremors * tachycardia * diaphoresis * anxiety * was drinking vodka daily in large quantities -- abruptly stopped drinking ~ 4 days ago * initially treated with Ativan and Precedex * now intubated and on propofol * PRN ativan ordered (5) Benign essential HTN: Code(s): I10 - Essential (primary) hypertension Status: Chronic Assessment and Plan: * initiated elevated on presentation (likely due to alcohol withdrawal) * better readings noted with sedation * holding BP medications at this time * follow trend of hemodynamics (6) Abnormal liver enzymes: Code(s): R74.8 - Abnormal levels of other serum enzymes Status: Acute Assessment and Plan: * presumably secondary to alcohol abuse * follow trend of LFTs (7) Diabetes type 1, controlled: Qualifiers: Diabetes mellitus complication status: without complication Qualified Code(s): E10.9 - Type 1 diabetes mellitus without complications Code(s): E10.9 - Type 1 diabetes mellitus without complications Status: Chronic Assessment and Plan: * follow accu-cheks * usually on insulin pump as an outpatient * glycemic control per hospitalist/sort manager Discussed case with Dr. Tian and long extensive discussion with the ER physician, Dr. Keller, as well. I will continue to follow the patient with you while he remains hospitalized and make further recommendations as deemed necessary. Thank you for allowing me to participate in the care of this patient. History of Present Illness Reason for Consult Consult date: 01/01/24 Reason for consult: hyponatremia Chief Complaint Chief complaint: Hyponatremia,Alcohol Withdrawal History of Present Illness Narrative: All the information that I have obtained is from review of the electronic medical record as well as discussion with the ER physician earlier today as well as the inte
--- NOTE | 2024-01-01 15:19 | PM.IMHP ---
H&P: HPI History of Present Illness Date/Time: 01/01/24 15:30 Chief Complaint: Alcohol withdrawal. Narrative: This is a 48-year-old male with history of alcoholism, alcohol withdrawal, hypertension, hyperlipidemia, insulin-dependent diabetes, anxiety, gastroesophageal reflux disease, and obstructive sleep apnea on CPAP who presented to the emergency department for evaluation of alcohol withdrawal. He is currently sedated and intubated on mechanical ventilation and cannot provide any history and thus the following history is obtained via a review of his EMR as well as information provided by his . He is known to myself and the hospitalist service from several admissions over the years for alcohol withdrawal, the last being in August 2023. According to the EMR, he has been binge drinking for several weeks, reportedly up to a handle of hard liquor a day. His last drink was about 4 days ago and he presents today with withdrawal symptoms including tremors, tachycardia, sweats, and anxiety. He took Ativan 0.5 mg at home without benefit. In the ED: He was tachycardic and hypertensive on arrival with blood pressures as high as 230/83. Labs were significant for a WBC count of 12.0, hemoglobin 13.1, platelet 231, INR 1.0, sodium 105, potassium 3.1, chloride 63, carbon dioxide 32, anion gap 13, BUN 10, creatinine 0.60, calcium 8.1, magnesium 1.7, total bilirubin 2.0, AST 92, ALT 61, alkaline phosphatase 90. He was intubated for impending respiratory failure given the need for high doses of benzodiazepines for withdrawal symptoms. Potassium was replaced. He was started on 3% normal saline after conferring with Nephrology. He has been admitted to the ICU in this setting. Several hours after admission he developed tremors on maximum doses of propofol. Midazolam was initiated with improvement. Tremors did not seem consistent with active seizures. Review of Systems Review of Systems: Unable to obtain given clinical condition. [facility] Past Medical History Medical History Alcoholism Hyperlipidemia Hypertension Insulin dependent diabetes mellitus Major depression, recurrent, chronic Obstructive sleep apnea on CPAP Pneumonia Seasonal allergies Tracheal stenosis Surgical History Surgical History History of resection and anastomosis of trachea Family History Family History Father Family history of hypercholesterolemia Family history of cardiovascular disease COPD (chronic obstructive pulmonary disease) Alcoholism Mother Hypertension Social History Social History Social History: Surrogate medical decision maker: Pilaradrianne Dc, spouse. Code status: Full code. Smoking status: Never smoker Second hand tobacco smoke exposure: Yes (father) Alcohol intake: current Substance use: never Substance use type: does not use Do You Feel Safe in your Home?: Yes Lack of Transportation: No Lack of Food: Never True Current Housing: I Have Housing Concerned About Future Housing: No Difficulty Paying Gas/Electric Bills: No Difficulty Paying for Meds: No Currently Unemployed: No Education: Master's Degree or Higher Difficulty w/ Childcare or Family Care: No Living arrangements: with family Additional living arrangements comments: Resides with spouse and 3 children in [place]. 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 Spiritual care concerns: No Agree to blood products: Yes Meds Home Medications and Allergies Home Medications Medication Instructions Recorded Confirmed Type hydrochlorothiazide 25 mg tablet 25 mg PO DAILY 10/13/19 01/01/24 History lisinopril 40 mg tablet 40 mg PO DAILY 10/13/19 01/01/24 History
[2024-01-01 15:35] LABS: Alveolar/Arterial O2 Gradient 28.1 mmHg; Base Excess ABG 2.9 mEq/l (+/-2.0); Carboxyhemoglobin 0.4 % THb (0-2.0); Fractional Inspired Oxygen 30 %; HCO3 ABG 26.4 mEq/l (22.0-26.0); Methemoglobin ABG 0.1 %THb (0-1.5); Oxygen Content ABG 16.3 %vol (16.0-22.0); Oxyhemoglobin 98.3 % THb (90.0-100.0); PCO2 ABG 36.3 mmHg (35.0-45.0); PO2 ABG 143.2 mmHg (80.0-100.0); PO2 FiO2 Ratio Arterial Blood 4.77 %; Reduced Hemoglobin 1.2 %THb (0-5.0); Total Hemoglobin 11.6 g/dL (12.0-18.0); pH ABG 7.479 (7.350-7.450)
[2024-01-01 15:36] LABS: Device VENTILATOR; Site Drawn LEFT RADIAL
[2024-01-01] MEDS: MAGNESIUM SULF 1 GM/D5W 100 ML 1 GM/100 ML BAG IVPB (15:36)
[2024-01-01 15:37] LABS: Arterial Blood Gas Ventilator rate 18 /MIN
[2024-01-01] MEDS: POTASSIUM CHLORIDE 20 MEQ PACKET (FOR LIQUID) 40 MEQ FEED TUBE (15:37)
[2024-01-01 15:38] LABS: Arterial Blood Gas PEEP 5 cmH2O; Arterial Blood Gas Tidal Volume 450 ml; Arterial Blood Gas Vent Mode CMV
[2024-01-01 16:27] LABS: Hepatitis B Surface Antigen Negative (Negative)
[2024-01-01 16:33] LABS: HAV RESULT Negative (Negative); Hepatitis B Core IgM Result Negative (Negative)
[2024-01-01 16:45] LABS: Hepatitis C Virus Antibody Negative (Negative)
[2024-01-01 16:47] LABS: Glucose Point of Care 357 mg/dl (65-105)
[2024-01-01] MEDS: INSULIN ASPART (*BKC) 100 UNITS/ML SUB-Q ×2 (16:52→23:06)
[2024-01-01 17:02] LABS: Anion Gap 11 mmol/L (4-12); Blood Urea Nitrogen 17 mg/dL (9-20); Calcium 7.8 mg/dL (8.4-10.2); Carbon Dioxide 29 mmol/L (22-30); Chloride 65 mmol/L (98-107); Estimated CRCL calculation 95 ml/min; Estimated Glomerular Filt Rate > 60; Glucose 334 mg/dL (65-110); Potassium 3.9 mmol/L (3.4-5.0); Sodium 105 mmol/L (137-145)
[2024-01-01 17:02] LABS: MRSA (PCR) NOT DETECTED (NOT DETECTE)
[2024-01-01] MEDS: PROPOFOL IV EMULSION 100 ML 22.32 MG IV CONT ×2 (18:31→22:51)
[2024-01-01] MEDS: MINERAL OIL/WHITE PETROLATUM OINTMENT 1 APPLIC EACH EYE (20:37)
[2024-01-01] MEDS: MIDAZOLAM 100MG/NS 100ML(*CRX) 100 MG/100 ML BAG IV CONT (20:40)
[2024-01-01 21:12] LABS: Anion Gap 7 mmol/L (4-12); Blood Urea Nitrogen 15 mg/dL (9-20); Carbon Dioxide 32 mmol/L (22-30); Chloride 71 mmol/L (98-107); Estimated CRCL calculation 95 ml/min; Estimated Glomerular Filt Rate > 60; Glucose 220 mg/dL (65-110); Potassium 3.1 mmol/L (3.4-5.0); Sodium 110 mmol/L (137-145)
[2024-01-01 23:05] LABS: Glucose Point of Care 245 mg/dl (65-105)
[2024-01-01 23:54] LABS: Anion Gap 7 mmol/L (4-12); Blood Urea Nitrogen 15 mg/dL (9-20); Calcium 7.9 mg/dL (8.4-10.2); Carbon Dioxide 33 mmol/L (22-30); Chloride 72 mmol/L (98-107); Estimated CRCL calculation 95 ml/min; Estimated Glomerular Filt Rate > 60; Glucose 221 mg/dL (65-110); Potassium 2.9 mmol/L (3.4-5.0); Sodium 112 mmol/L (137-145)
[2024-01-02] VITALS (54 sets, daily range): BP systolic 93–120; BP diastolic 61–93; PULSE 96–118; RESP 16–30; TEMP 37–37.4; O2SAT 100
[2024-01-02] MEDS: DEXTROSE 5% IN WATER 500 ML 250 ML IV CONT ×3 (00:48→11:52)
[2024-01-02] MEDS: LORazepam INJ (*CRX) 2 MG/ML VIAL IV PUSH ×4 (01:07→08:55)
[2024-01-02] MEDS: PROPOFOL IV EMULSION 100 ML 8.93 MG IV CONT (04:05)
[2024-01-02 04:09] LABS: Basophils Percent Auto 0.4 % (0.2-1.2); Eosinophils Percent Auto 0.5 % (0-4.4); Hematocrit 31.9 % (42.0-52.0); Hemoglobin 11.9 g/dL (14.0-18.0); Immature Granulocyte Absolute 0.03 K/mm3 (0.00-0.031); Immature Granulocyte Percent A 0.4 % (0-0.5); Lymphocytes Absolute Auto 1.04 K/mm3 (0.9-3.2); Lymphocytes Percent Auto 13.8 % (18.3-44.2); Mean Corpuscular HGB Conc 37.3 g/dl (32-36); Mean Corpuscular Hemoglobin 31.2 pg (26-34); Mean Corpuscular Volume 83.7 fl (80-100); Mean Platelet Volume 9.9 fl (7.4-10.4); Monocytes Absolute Auto 0.9 K/mm3 (0.1-0.6); Monocytes Percent Auto 11.9 % (2.6-8.5); Neutrophils Absolute Auto 5.5 K/mm3 (1.3-6.7); Platelet Count Result 253 k/mm3 (150-375); Red Blood Count 3.81 M/mm3 (4.6-6.20); Red Cell Distribution Width 12.6 % (11.5-14.5); White Blood Count 7.5 K/mm3 (4.5-10.0)
[2024-01-02 04:18] LABS: Prothrombin Time 13.8 Seconds (11.1-14.7)
[2024-01-02 04:19] LABS: Partial Thromboplastin Time 26.9 Seconds (22.3-36.8)
[2024-01-02 04:27] LABS: Alanine Aminotransferase 73 U/L (6-50); Albumin Level 3.4 g/dL (3.5-5.1); Alkaline Phosphatase 72 U/L (38-126); Anion Gap 7 mmol/L (4-12); Aspartate Amino Transferase 108 U/L (17-59); Bilirubin,Total 1.2 mg/dL (0.2-1.3); Blood Urea Nitrogen 13 mg/dL (9-20); Calcium 7.8 mg/dL (8.4-10.2); Carbon Dioxide 32 mmol/L (22-30); Chloride 73 mmol/L (98-107); Creatine Kinase 247 U/L (55-170); Estimated CRCL calculation 95 ml/min; Estimated Glomerular Filt Rate > 60; Glucose 262 mg/dL (65-110); Lipase 32 U/L (23-300); Phosphorus 3.3 mg/dL (2.5-4.5); Sodium 112 mmol/L (137-145)
[2024-01-02] MEDS: INSULIN ASPART (*BKC) 100 UNITS/ML SUB-Q ×3 (05:16→17:59)
[2024-01-02 05:17] LABS: Glucose Point of Care 284 mg/dl (65-105)
[2024-01-02 05:22] LABS: Base Excess ABG 9.5 mEq/l (+/-2.0); Carboxyhemoglobin 0.6 % THb (0-2.0); Fractional Inspired Oxygen 30 %; HCO3 ABG 32.9 mEq/l (22.0-26.0); Methemoglobin ABG 0.3 %THb (0-1.5); Oxygen Content ABG 17.5 %vol (16.0-22.0); Oxyhemoglobin 98.2 % THb (90.0-100.0); PO2 ABG 141.9 mmHg (80.0-100.0); PO2 FiO2 Ratio Arterial Blood 4.73 %; Reduced Hemoglobin 0.9 %THb (0-5.0); Total Hemoglobin 12.5 g/dL (12.0-18.0)
[2024-01-02 05:25] LABS: Arterial Blood Gas Ventilator rate 16 /MIN; Device VENTILATOR; Modified Allen's Test Pass; Site Drawn LEFT RADIAL; pH ABG 7.533 (7.350-7.450)
[2024-01-02 05:26] LABS: Arterial Blood Gas PEEP 5 cmH2O; Arterial Blood Gas Tidal Volume 450 ml; Arterial Blood Gas Vent Mode CMV
--- NOTE | 2024-01-02 08:06 | PM.IMPN ---
Progress Note: A&P Assessment and Plan (1) Acute respiratory failure: Code(s): J96.00 - Acute respiratory failure, unspecified whether with hypoxia or hypercapnia Status: Acute (2) Alcohol withdrawal syndrome: Code(s): F10.239 - Alcohol dependence with withdrawal, unspecified Status: Acute (3) Hyponatremia: Code(s): E87.1 - Hypo-osmolality and hyponatremia Status: Acute (4) Elevated LFTs: Code(s): R79.89 - Other specified abnormal findings of blood chemistry Status: Acute (5) Hypertension: Code(s): I10 - Essential (primary) hypertension Status: Acute (6) Insulin dependent diabetes mellitus: Status: Acute (7) Obstructive sleep apnea on CPAP: Code(s): G47.33 - Obstructive sleep apnea (adult) (pediatric) Status: Acute Plan (1) Respiratory failure: ?Code(s): J96.90 - Respiratory failure, unspecified, unspecified whether with hypoxia or hypercapnia ?Status:?Acute ?Assessment and Plan: has alcohol withdrawal symptoms,intubated received Ativan and Precedex infusionnow now on propofol and Versed infusion, (2) Alcohol withdrawal syndrome: ?Code(s): F10.239 - Alcohol dependence with withdrawal, unspecified ?Status:?Acute ?Assessment and Plan: Patient presented with tremors, tachycardia, diaphoresis, anxiety.? Patient has been drinking vodka daily in large quantities, he has stopped drinking since the last 4 days. Precedex infusion was discontinued currently on propofol and Versed infusion -p.r.n. Ativan has been ordered (3) Hyponatremia: ?Code(s): E87.1 - Hypo-osmolality and hyponatremia ?Status:?Acute ?Assessment and Plan: Severe hyponatremia with sodium levels of 103 on admission nephrology managing the the sodium levels (4) ? Hypokalemia, will replace potassium (5) Benign essential HTN: ?Code(s): I10 - Essential (primary) hypertension ?Status:?Chronic ?Assessment and Plan: Currently patient on positive pressure ventilation and propofol infusion for sedation -blood pressures have been stable, will hold all blood pressure medications for now. (Takes lisinopril and HCTZ at home) (6) Diabetes type 1, controlled: ?Qualifiers: ?Diabetes mellitus complication status:?without complication? Qualified Code(s):?E10.9 - Type 1 diabetes mellitus without complications ?Code(s): E10.9 - Type 1 diabetes mellitus without complications ?Status:?Chronic ?Assessment and Plan: Accu-Cheks and sliding scale insulin -hemoglobin A1c is 6.0 this admission -patient remains hyperglycemic, will add? Lantus (7) OZZY (obstructive sleep apnea): ?Code(s): G47.33 - Obstructive sleep apnea (adult) (pediatric) currently intubated on mechanical ventilation (8) Major depression, recurrent, chronic: ?Code(s): F33.9 - Major depressive disorder, recurrent, unspecified ?Status:?Acute ?Assessment and Plan: Patient is on lorazepam, trazodone, aripiprazole, bupropion. fluoxetine at home - (9) Abnormal liver enzymes: possible alcoholic hepatitis ?Code(s): R74.8 - Abnormal levels of other serum enzymes ?Status:?Acute ?Assessment and Plan: Likely related to alcohol abuse, diffuse hepatic steatosis -continue to monitor ? Hepatitis panel is negative RUQ ultrasound showed diffuse hepatic steatosis Subjective Date/time seen: 01/02/24 08:06 Interval history: I saw and examined patient ICU, patient was on sedation, no obvious distress, patient is on tube feeding. afebrile, not on vasopressors, Exam Narrative: GENERAL: on sedation, no obvious distress - EYES: EOMI. Anicteric. - HENT: Moist mucous membranes. - LUNGS: Clear to auscultation bilaterally, no wheezing, rhonchi, or rales. - CARDIOVASCULAR: Regular rate and rhythm. No murmur. No JVD. - ABDOMEN: Soft, non-tender and non-distended. No palpable masses. - EXTREMITIES: N
[2024-01-02] MEDS: POTASSIUM CHLORIDE 20 MEQ PACKET (FOR LIQUID) 40 MEQ FEED TUBE (08:39)
[2024-01-02] MEDS: ENOXAPARIN 40 MG/0.4 ML SYRINGE SUB-Q (08:39)
[2024-01-02] MEDS: POTASSIUM CHLORIDE 20 MEQ PACKET (FOR LIQUID) FEED TUBE ×2 (08:39→16:10)
[2024-01-02] MEDS: PANTOPRAZOLE SODIUM IV 40 MG VIAL IV PUSH (08:40)
[2024-01-02] MEDS: INSULIN GLARGINE (*BKC) 100 UNITS/ML 10 UNITS SUB-Q ×2 (08:40→20:03)
[2024-01-02] MEDS: MINERAL OIL/WHITE PETROLATUM OINTMENT 1 APPLIC EACH EYE ×2 (08:40→20:03)
[2024-01-02 08:45] LABS: Sodium 111 mmol/L (137-145)
[2024-01-02] MEDS: FOLIC ACID 1 MG/0.2 ML INJ IV PUSH (08:46)
--- NOTE | 2024-01-02 08:54 | WPDINTPN ---
Progress Note: A&P Assessment and Plan (1) Respiratory failure: Code(s): J96.90 - Respiratory failure, unspecified, unspecified whether with hypoxia or hypercapnia Status: Acute Assessment and Plan: Patient presented with alcohol withdrawal symptoms, received Ativan and Precedex infusion and was more somnolent, was intubated for airway protection. -Currently on CMV mode of ventilation, peep of 5 and to % FiO2 with adequate O2 sats, patient is breathing with the ventilator, -chest x-ray reviewed clear lungs -sedated with propofol and Versed infusion, the bedside RN to go upon the Versed infusion because patient is still tremulous, maintain RASS of 0 to -2. Daily sedation vacation (2) Alcohol withdrawal syndrome: Code(s): F10.239 - Alcohol dependence with withdrawal, unspecified Status: Acute Assessment and Plan: Patient presented with tremors, tachycardia, diaphoresis, anxiety. Patient has been drinking vodka daily in large quantities, he has stopped drinking since the last 4 days. -patient was given Ativan and started on Precedex infusion, was more somnolent and was intubated for airway protection, Precedex infusion was discontinued -currently on propofol and Versed infusion -p.r.n. Ativan has been ordered (3) Hyponatremia: Code(s): E87.1 - Hypo-osmolality and hyponatremia Status: Acute Assessment and Plan: Severe hyponatremia with sodium levels of 103 on admission -nephrology has been consulted -status post 3% saline at 30 mL/hour for 500 mL -Serial BMPs -discussed with workers' compensation claims supervisor, will increase sodium levels by 6-8 mEq/ 24 hours -continue to monitor urine output, electrolytes and renal function -nephrology managing the the sodium levels (4) Electrolyte imbalance: Code(s): E87.8 - Other disorders of electrolyte and fluid balance, not elsewhere classified Status: Acute Assessment and Plan: Hypokalemia, will replace potassium (5) Benign essential HTN: Code(s): I10 - Essential (primary) hypertension Status: Chronic Assessment and Plan: Currently patient on positive pressure ventilation and propofol infusion for sedation -blood pressures have been stable, will hold all blood pressure medications for now. (Takes lisinopril and HCTZ at home) (6) Diabetes type 1, controlled: Qualifiers: Diabetes mellitus complication status: without complication Qualified Code(s): E10.9 - Type 1 diabetes mellitus without complications Code(s): E10.9 - Type 1 diabetes mellitus without complications Status: Chronic Assessment and Plan: Accu-Cheks and sliding scale insulin -hemoglobin A1c is 6.0 this admission -patient remains hyperglycemic, will add Lantus (7) OZZY (obstructive sleep apnea): Code(s): G47.33 - Obstructive sleep apnea (adult) (pediatric) Status: Acute Assessment and Plan: Patient's spouse stated that he normally uses CPAP but due to some insurance issues he has not used his CPAP since the beginning of December 2023 -currently intubated on mechanical ventilation (8) Major depression, recurrent, chronic: Code(s): F33.9 - Major depressive disorder, recurrent, unspecified Status: Acute Assessment and Plan: Patient is on lorazepam, trazodone, aripiprazole, bupropion. fluoxetine at home -will restart aripiprazole, bupropion and fluoxetine (9) Abnormal liver enzymes: Code(s): R74.8 - Abnormal levels of other serum enzymes Status: Acute Assessment and Plan: Likely related to alcohol abuse, diffuse hepatic steatosis -continue to monitor -12/31: Hepatitis panel is negative 12/31: RUQ ultrasound showed diffuse hepatic steatosis Plan DVT prophylaxis: Lovenox Stress ulcer prophylaxis: Protonix Nutrition: Will start tube feeds today Code Status: Full code Critical Care Time Spent: 33 minutes Discussed with workers' compensation claims supervisor Discussed with patient's Pilar destiny
[2024-01-02] MEDS: FLUoxetine HCL 10 MG CAPSULE 30 MG PO (09:22)
[2024-01-02] MEDS: ARIPiprazole 5 MG TABLET PO (09:22)
[2024-01-02] MEDS: PHENobarbitaL sodium (*CRX) 130 MG/ML VIAL IV PUSH (09:24)
[2024-01-02 09:56] LABS: Creatinine Urine 84.2 mg/dL; Total Protein Urine Random 16 mg/dL; Ur Ttl Prot Creatinine Ratio 0.19 mg/mg (0-0.20); Urea Random Urine 510 MG/DL
[2024-01-02 09:57] LABS: Sodium Urine Random < 5 meq/L
--- NOTE | 2024-01-02 11:13 | P.PNNP_ITS ---
Progress Note: A&P Assessment and Plan (1) Hyponatremia: Code(s): E87.1 - Hypo-osmolality and hyponatremia Status: Acute Assessment and Plan: * quite severe on presentation with sodium level of 103 on presentation * review on labs demonstrates he has had issues with this in the past (but to this extreme) * given concerns of neurological symptoms prior to intubation, initiated on 3% saline * follow serial BMPs to ensure overcorrection does not occur * goal of therapy is a change of 6 - 8mmol/L in 24 hours * off 3% saline at this time * risk factors for low sodium noted: * alcohol abuse * thyroid disease (?) -- TSH and FT4 results noted * HCTZ use * SSRI use * follow-up on cortisol, SPEP, UPEP, kappa/lambda ratio, and serum/urine osmolality * follow repeat sodium levels (2) Hypokalemia: Code(s): E87.6 - Hypokalemia Status: Acute Assessment and Plan: * suspect due to total body depletion from poor oral intake * replace as needed * magneisum okay * follow trend (3) Acute respiratory failure: Code(s): J96.00 - Acute respiratory failure, unspecified whether with hypoxia or hypercapnia Status: Acute Assessment and Plan: * intubated for airway protection * no pathology noted by chest imaging * suspect related to alcohol withdrawal and sedation * follow respiratory status (4) Alcohol withdrawal syndrome: Code(s): F10.239 - Alcohol dependence with withdrawal, unspecified Status: Acute Assessment and Plan: * as evident by symptoms on admission: * tremors * tachycardia * diaphoresis * anxiety * was drinking vodka daily in large quantities -- abruptly stopped drinking ~ 4 days prior to admission * initially treated with Ativan and Precedex * now intubated and on propofol * PRN ativan ordered (5) Benign essential HTN: Code(s): I10 - Essential (primary) hypertension Status: Chronic Assessment and Plan: * initiated elevated on presentation (likely due to alcohol withdrawal) * better readings noted with sedation * holding BP medications at this time * follow trend of hemodynamics (6) Abnormal liver enzymes: Code(s): R74.8 - Abnormal levels of other serum enzymes Status: Acute Assessment and Plan: * presumably secondary to alcohol abuse * hepatitis studies and RUQ ultrasound noted * follow trend of LFTs (7) Diabetes type 1, controlled: Qualifiers: Diabetes mellitus complication status: without complication Qualified Code(s): E10.9 - Type 1 diabetes mellitus without complications Code(s): E10.9 - Type 1 diabetes mellitus without complications Status: Chronic Assessment and Plan: * follow accu-cheks * usually on insulin pump as an outpatient * glycemic control per hospitalist/recycling or rubbish collector Will continue to follow Subjective Date/time seen: 01/02/24 11:13 Interval history: Follow-up for acute hyponatremia. Sodium level has been slowly improving although has required a few runs of D5W IVFs to prevent overcorrection in the last 24 hours; remains intubated/sedated and on mechanical ventilation; remains hemodynamically stable with excellent urine output; some tremulousness noted but otherwise, no apparent distress noted. Exam Narrative: General: WD/WN male intubated/sedated and on mechanical ventilation Heart: tachycardic, normal S1 and S2; no rub Lungs: clear to auscul
--- NOTE | 2024-01-02 11:13 | PM.PNNEP ---
Progress Note: A&P Assessment and Plan (1) Hyponatremia: Code(s): E87.1 - Hypo-osmolality and hyponatremia Status: Acute Assessment and Plan: quite severe on presentation with sodium level of 103 on presentation review on labs demonstrates he has had issues with this in the past (but to this extreme) given concerns of neurological symptoms prior to intubation, initiated on 3% saline follow serial BMPs to ensure overcorrection does not occur goal of therapy is a change of 6 - 8mmol/L in 24 hours off 3% saline at this time risk factors for low sodium noted: alcohol abuse thyroid disease (?) -- TSH and FT4 results noted HCTZ use SSRI use follow-up on cortisol, SPEP, UPEP, kappa/lambda ratio, and serum/urine osmolality follow repeat sodium levels (2) Hypokalemia: Code(s): E87.6 - Hypokalemia Status: Acute Assessment and Plan: suspect due to total body depletion from poor oral intake replace as needed magneisum okay follow trend (3) Acute respiratory failure: Code(s): J96.00 - Acute respiratory failure, unspecified whether with hypoxia or hypercapnia Status: Acute Assessment and Plan: intubated for airway protection no pathology noted by chest imaging suspect related to alcohol withdrawal and sedation follow respiratory status (4) Alcohol withdrawal syndrome: Code(s): F10.239 - Alcohol dependence with withdrawal, unspecified Status: Acute Assessment and Plan: as evident by symptoms on admission: tremors tachycardia diaphoresis anxiety was drinking vodka daily in large quantities -- abruptly stopped drinking ~ 4 days prior to admission initially treated with Ativan and Precedex now intubated and on propofol PRN ativan ordered (5) Benign essential HTN: Code(s): I10 - Essential (primary) hypertension Status: Chronic Assessment and Plan: initiated elevated on presentation (likely due to alcohol withdrawal) better readings noted with sedation holding BP medications at this time follow trend of hemodynamics (6) Abnormal liver enzymes: Code(s): R74.8 - Abnormal levels of other serum enzymes Status: Acute Assessment and Plan: presumably secondary to alcohol abuse hepatitis studies and RUQ ultrasound noted follow trend of LFTs (7) Diabetes type 1, controlled: Qualifiers: Diabetes mellitus complication status: without complication Qualified Code(s): E10.9 - Type 1 diabetes mellitus without complications Code(s): E10.9 - Type 1 diabetes mellitus without complications Status: Chronic Assessment and Plan: follow accu-cheks usually on insulin pump as an outpatient glycemic control per hospitalist/residential insurance inspector Will continue to follow Subjective Date/time seen: 01/02/24 11:13 Interval history: Follow-up for acute hyponatremia. Sodium level has been slowly improving although has required a few runs of D5W IVFs to prevent overcorrection in the last 24 hours; remains intubated/sedated and on mechanical ventilation; remains hemodynamically stable with excellent urine output; some tremulousness noted but otherwise, no apparent distress noted. Exam Narrative: General: WD/WN male intubated/sedated and on mechanical ventilation Heart: tachycardic, normal S1 and S2; no rub Lungs: clear to auscultation Abdomen: soft, nontender, nondistended, hypoactive bowel sounds Extremities: no cyanosis or clubbing; no edema Skin: warm and dry Objective Data Vital Signs Vital Signs: Vital Signs Temp Pulse Resp BP Pulse Ox O2 Del Method FiO2 01/02/24 11:13 115 H 28 H 01/02/24 10:33 112 H 100 Mechanical Ventilation 01/02/24 10:07 114 H 16 01/02/24 10:00 114 H 16 99/70 L 100 01/02/24 10:00 114 H 01/02/24 09:56 115 H 16 01/02/24 09:56 115 H 16 01/01
[2024-01-02 11:15] LABS: Sodium 113 mmol/L (137-145)
[2024-01-02] MEDS: PROPOFOL IV EMULSION 100 ML 15.62 MG IV CONT (11:51)
[2024-01-02] MEDS: buPROPion HCL 100 MG TABLET FEED TUBE ×2 (11:53→16:11)
[2024-01-02 12:05] LABS: Glucose Point of Care 306 mg/dl (65-105)
[2024-01-02 15:14] LABS: Anion Gap 4 mmol/L (4-12); Blood Urea Nitrogen 13 mg/dL (9-20); Calcium 7.7 mg/dL (8.4-10.2); Carbon Dioxide 33 mmol/L (22-30); Chloride 75 mmol/L (98-107); Estimated CRCL calculation 108 ml/min; Estimated Glomerular Filt Rate > 60; Glucose 265 mg/dL (65-110); Sodium 112 mmol/L (137-145)
[2024-01-02] MEDS: POTASSIUM CHLORIDE INJ 40 MEQ in SODIUM CHLORIDE 0.9% IV 500 ML 130 MEQ IVPB (16:11)
[2024-01-02 18:09] LABS: Glucose Point of Care 244 mg/dl (65-105)
[2024-01-02] MEDS: PROPOFOL IV EMULSION 100 ML 11.16 MG IV CONT (18:59)
[2024-01-02 19:34] LABS: Sodium 114 mmol/L (137-145)
[2024-01-02] MEDS: MIDAZOLAM 100MG/NS 100ML(*CRX) 100 MG/100 ML BAG 6 MG IV CONT (20:01)
[2024-01-02 23:40] LABS: Sodium 115 mmol/L (137-145)
[2024-01-02 23:48] LABS: Glucose Point of Care 171 mg/dl (65-105)
[2024-01-03] VITALS (45 sets, daily range): BP systolic 83–125; BP diastolic 56–79; PULSE 85–106; RESP 16–24; TEMP 37.1–37.5; O2SAT 97–100; BMI 25.1
[2024-01-03] MEDS: PROPOFOL IV EMULSION 100 ML 11.16 MG IV CONT (02:45)
--- NOTE | 2024-01-03 03:27 | PC.NURSE ---
Dr. Johnson returned called at 0117. Notified of Sodium level of 115. Will get next level with am labs.
[2024-01-03 04:35] LABS: Basophils Percent Auto 0.3 % (0.2-1.2); Eosinophils Percent Auto 0.3 % (0-4.4); Hematocrit 32.3 % (42.0-52.0); Hemoglobin 11.6 g/dL (14.0-18.0); Immature Granulocyte Absolute 0.03 K/mm3 (0.00-0.031); Immature Granulocyte Percent A 0.4 % (0-0.5); Lymphocytes Absolute Auto 0.73 K/mm3 (0.9-3.2); Lymphocytes Percent Auto 9.4 % (18.3-44.2); Mean Corpuscular HGB Conc 35.9 g/dl (32-36); Mean Corpuscular Hemoglobin 31.1 pg (26-34); Mean Corpuscular Volume 86.6 fl (80-100); Mean Platelet Volume 9.3 fl (7.4-10.4); Monocytes Absolute Auto 1.5 K/mm3 (0.1-0.6); Monocytes Percent Auto 18.9 % (2.6-8.5); Neutrophils Absolute Auto 5.5 K/mm3 (1.3-6.7); Neutrophils Percent Auto 70.7 % (45.5-73.1); Platelet Count Result 245 k/mm3 (150-375); Red Blood Count 3.73 M/mm3 (4.6-6.20); Red Cell Distribution Width 12.8 % (11.5-14.5); White Blood Count 7.7 K/mm3 (4.5-10.0)
[2024-01-03 05:25] LABS: Alanine Aminotransferase 105 U/L (6-50); Albumin Level 3.2 g/dL (3.5-5.1); Alkaline Phosphatase 81 U/L (38-126); Anion Gap 3 mmol/L (4-12); Aspartate Amino Transferase 109 U/L (17-59); Bilirubin,Total 0.9 mg/dL (0.2-1.3); Blood Urea Nitrogen 11 mg/dL (9-20); Calcium 8.1 mg/dL (8.4-10.2); Carbon Dioxide 35 mmol/L (22-30); Chloride 80 mmol/L (98-107); Estimated CRCL calculation 95 ml/min; Estimated Glomerular Filt Rate > 60; Glucose 235 mg/dL (65-110); Phosphorus 2.7 mg/dL (2.5-4.5); Potassium 3.5 mmol/L (3.4-5.0); Sodium 118 mmol/L (137-145); Triglycerides 114 mg/dL (<150)
[2024-01-03] MEDS: INSULIN ASPART (*BKC) 100 UNITS/ML SUB-Q ×4 (05:28→23:46)
[2024-01-03 05:57] LABS: Alveolar/Arterial O2 Gradient 48.7 mmHg; Base Excess ABG 6.3 mEq/l (+/-2.0); Carboxyhemoglobin 0.4 % THb (0-2.0); Fractional Inspired Oxygen 24 %; Methemoglobin ABG 0.1 %THb (0-1.5); Oxygen Content ABG 16.1 %vol (16.0-22.0); Oxygen Saturation ABG 96.1 % (95.0-100.0); Oxyhemoglobin 95.4 % THb (90.0-100.0); PCO2 ABG 39.7 mmHg (35.0-45.0); PO2 ABG 75.2 mmHg (80.0-100.0); PO2 FiO2 Ratio Arterial Blood 3.13 %; Reduced Hemoglobin 4.1 %THb (0-5.0); pH ABG 7.496 (7.350-7.450)
[2024-01-03 05:59] LABS: Device VENTILATOR; Modified Allen's Test Pass; Site Drawn RIGHT RADIAL
[2024-01-03 06:00] LABS: Arterial Blood Gas PEEP 5 cmH2O; Arterial Blood Gas Tidal Volume 450 ml; Arterial Blood Gas Vent Mode CMV; Arterial Blood Gas Ventilator rate 16 /MIN
--- NOTE | 2024-01-03 07:59 | WPDINTPN ---
Progress Note: A&P Assessment and Plan (1) Respiratory failure: Code(s): J96.90 - Respiratory failure, unspecified, unspecified whether with hypoxia or hypercapnia Status: Acute Assessment and Plan: Patient presented with alcohol withdrawal symptoms, received Ativan and Precedex infusion and was more somnolent, was intubated for airway protection. -Currently on CMV mode of ventilation, peep of 5. ABG reviewed Decrease tidal volume to 420 and rate to 16 -chest x-ray reviewed clear lungs -sedated with propofol and Versed infusion, the bedside RN to go upon the Versed infusion because patient is still tremulous, maintain RASS of 0 to -2. Daily sedation vacation (2) Alcohol withdrawal syndrome: Code(s): F10.239 - Alcohol dependence with withdrawal, unspecified Status: Acute Assessment and Plan: Patient presented with tremors, tachycardia, diaphoresis, anxiety. Patient has been drinking vodka daily in large quantities, he has stopped drinking since the last 4 days. -patient was given Ativan and started on Precedex infusion, was more somnolent and was intubated for airway protection, Precedex infusion was discontinued -currently on propofol and Versed infusion -start scheduled per tube Librium and IV Precedex infusion. Will transition Versed to Precedex along with per tube Librium to try to wean patient off the mechanical ventilation and minimize sedation (3) Hyponatremia: Code(s): E87.1 - Hypo-osmolality and hyponatremia Status: Acute Assessment and Plan: Severe hyponatremia with sodium levels of 103 on admission -nephrology is managing with management and monitoring -status post 3% saline at 30 mL/hour for 500 mL initially -Serial BMPs are being done as per certified pharmacist assistant -sodium level 118 this morning -continue to monitor urine output, electrolytes and renal function (4) Electrolyte imbalance: Code(s): E87.8 - Other disorders of electrolyte and fluid balance, not elsewhere classified Status: Acute Assessment and Plan: Hypokalemia, will replace potassium (5) Benign essential HTN: Code(s): I10 - Essential (primary) hypertension Status: Chronic Assessment and Plan: Currently patient on positive pressure ventilation and propofol infusion for sedation -blood pressures have been stable, will hold all blood pressure medications for now. (Takes lisinopril and HCTZ at home) (6) Diabetes type 1, controlled: Qualifiers: Diabetes mellitus complication status: without complication Qualified Code(s): E10.9 - Type 1 diabetes mellitus without complications Code(s): E10.9 - Type 1 diabetes mellitus without complications Status: Chronic Assessment and Plan: Accu-Cheks and sliding scale insulin -hemoglobin A1c is 6.0 this admission -continue Lantus and sliding scale (7) OZZY (obstructive sleep apnea): Code(s): G47.33 - Obstructive sleep apnea (adult) (pediatric) Status: Acute Assessment and Plan: Patient's spouse stated that he normally uses CPAP but due to some insurance issues he has not used his CPAP since the beginning of December 2023 -currently intubated on mechanical ventilation (8) Major depression, recurrent, chronic: Code(s): F33.9 - Major depressive disorder, recurrent, unspecified Status: Acute Assessment and Plan: Patient is on lorazepam, trazodone, aripiprazole, bupropion. fluoxetine at home -will continue aripiprazole, bupropion and fluoxetine (9) Abnormal liver enzymes: Code(s): R74.8 - Abnormal levels of other serum enzymes Status: Acute Assessment and Plan: Likely related to alcohol liver disease, diffuse hepatic steatosis -continue to monitor -12/31: Viral Hepatitis panel is negative 12/31: RUQ ultrasound showed diffuse hepatic steatosis Plan DVT prophylaxis: Lovenox Stress ulcer prophylaxis: Protonix Nutrition: Continue tube feeds today Code Status
[2024-01-03] MEDS: PANTOPRAZOLE SODIUM IV 40 MG VIAL IV PUSH (08:10)
[2024-01-03] MEDS: buPROPion HCL 100 MG TABLET FEED TUBE ×3 (08:10→17:28)
[2024-01-03] MEDS: ARIPiprazole 5 MG TABLET PO (08:10)
[2024-01-03] MEDS: FOLIC ACID 1 MG/0.2 ML INJ IV PUSH (08:10)
[2024-01-03] MEDS: FLUoxetine HCL 10 MG CAPSULE 30 MG PO (08:10)
[2024-01-03] MEDS: ENOXAPARIN 40 MG/0.4 ML SYRINGE SUB-Q (08:10)
[2024-01-03] MEDS: dexmedeTOMIDine 400 MCG/100 ML 400 MCG/100 ML BAG IV CONT (08:11)
[2024-01-03] MEDS: MINERAL OIL/WHITE PETROLATUM OINTMENT 1 APPLIC EACH EYE ×2 (08:12→20:49)
[2024-01-03] MEDS: POTASSIUM CHLORIDE 20 MEQ PACKET (FOR LIQUID) 40 MEQ FEED TUBE (08:12)
[2024-01-03 08:15] LABS: Sodium 117 mmol/L (137-145)
[2024-01-03] MEDS: INSULIN GLARGINE (*BKC) 100 UNITS/ML 20 UNITS SUB-Q (08:15)
--- NOTE | 2024-01-03 09:22 | PM.IMPN ---
Progress Note: A&P Assessment and Plan (1) Acute respiratory failure: Code(s): J96.00 - Acute respiratory failure, unspecified whether with hypoxia or hypercapnia Status: Acute (2) Elevated LFTs: Code(s): R79.89 - Other specified abnormal findings of blood chemistry Status: Acute (3) Obstructive sleep apnea on CPAP: Code(s): G47.33 - Obstructive sleep apnea (adult) (pediatric) Status: Acute (4) Electrolyte imbalance: Code(s): E87.8 - Other disorders of electrolyte and fluid balance, not elsewhere classified Status: Acute (5) Alcohol withdrawal seizure with delirium: Code(s): F10.931 - Alcohol use, unspecified with withdrawal delirium; R56.9 - Unspecified convulsions Status: Acute (6) Hyponatremia: Code(s): E87.1 - Hypo-osmolality and hyponatremia Status: Acute (7) Hypokalemia: Code(s): E87.6 - Hypokalemia Status: Acute Plan (1) Acute respiratory failure: Code(s): J96.00 - Acute respiratory failure, unspecified whether with hypoxia or hypercapnia Status: Acute (2) Alcohol withdrawal syndrome: Code(s): F10.239 - Alcohol dependence with withdrawal, unspecified Status: Acute (3) Hyponatremia: Code(s): E87.1 - Hypo-osmolality and hyponatremia Status: Acute (4) Elevated LFTs: Code(s): R79.89 - Other specified abnormal findings of blood chemistry Status: Acute (5) Hypertension: Code(s): I10 - Essential (primary) hypertension Status: Acute (6) Insulin dependent diabetes mellitus: Status: Acute (7) Obstructive sleep apnea on CPAP: Code(s): G47.33 - Obstructive sleep apnea (adult) (pediatric) Status: Acute Plan (1) Respiratory failure: ?Code(s): J96.90 - Respiratory failure, unspecified, unspecified whether with hypoxia or hypercapnia ?Status:?Acute ?Assessment and Plan: has alcohol withdrawal symptoms,intubated received Ativan and Precedex infusionnow now on propofol and Versed infusion, (2) Alcohol withdrawal syndrome: ?Code(s): F10.239 - Alcohol dependence with withdrawal, unspecified ?Status:?Acute ?Assessment and Plan: Patient presented with tremors, tachycardia, diaphoresis, anxiety.? Patient has been drinking vodka daily in large quantities, he has stopped drinking since the last 4 days. Precedex infusion was discontinued currently on propofol and Versed infusion -p.r.n. Ativan has been ordered (3) Hyponatremia: ?Code(s): E87.1 - Hypo-osmolality and hyponatremia ?Status:?Acute ?Assessment and Plan: Severe hyponatremia with sodium levels of 103 on admission nephrology managing the the sodium levels sodium 117 today (4) ? Hypokalemia, will replace potassium (5) Benign essential HTN: ?Code(s): I10 - Essential (primary) hypertension ?Status:?Chronic ?Assessment and Plan: Currently patient on positive pressure ventilation and propofol infusion for sedation -blood pressures have been stable, will hold all blood pressure medications for now. (Takes lisinopril and HCTZ at home) potassium 3.5, corrected (6) Diabetes type 1, controlled: ?Qualifiers: ?Diabetes mellitus complication status:?without complication? Qualified Code(s):?E10.9 - Type 1 diabetes mellitus without complications ?Code(s): E10.9 - Type 1 diabetes mellitus without complications ?Status:?Chronic ?Assessment and Plan: Accu-Cheks and sliding scale insulin -hemoglobin A1c is 6.0 this admission -patient remains hyperglycemic, will add? Lantus (7) OZZY (obstructive sleep apnea): ?Code(s): G47.33 - Obstructive sleep apnea (adult) (pediatric) currently intubated on mechanical ventilation (8) Major depression, recurrent, chronic: ?Code(s): F33.9 - Major depressive disorder, recurrent, unspecified ?Status:?Acute ?Assessment and Plan: Patient is on deyanira
--- NOTE | 2024-01-03 10:03 | P.PNNP_ITS ---
Progress Note: A&P Assessment and Plan (1) Hyponatremia: Code(s): E87.1 - Hypo-osmolality and hyponatremia Status: Acute Assessment and Plan: * slow and steady improvement * quite severe on presentation with sodium level of 103 on presentation * review on labs demonstrates he has had issues with this in the past (but to this extreme) * given concerns of neurological symptoms prior to intubation, initiated on 3% saline * follow serial BMPs/sodiums to ensure overcorrection does not occur * goal of therapy is a change of 6 - 8mmol/L in 24 hours * s/p 3% saline on admission * risk factors for low sodium noted: * alcohol abuse * thyroid disease (?) -- TSH and FT4 results noted * HCTZ use * SSRI use * evaluation to date: * thyroid studies noted * cortisol okay * urine electrolytes prerenal * SPEP/UPEP and serum/urine osmo pending * follow repeat sodium levels (2) Hypokalemia: Code(s): E87.6 - Hypokalemia Status: Acute Assessment and Plan: * doing better * suspect due to total body depletion from poor oral intake * replace as needed * magneisum okay * follow trend (3) Acute respiratory failure: Code(s): J96.00 - Acute respiratory failure, unspecified whether with hypoxia or hypercapnia Status: Acute Assessment and Plan: * intubated for airway protection * no pathology noted by chest imaging * suspect related to alcohol withdrawal and sedation * follow respiratory status (4) Alcohol withdrawal syndrome: Code(s): F10.239 - Alcohol dependence with withdrawal, unspecified Status: Acute Assessment and Plan: * as evident by symptoms on admission: * tremors * tachycardia * diaphoresis * anxiety * was drinking vodka daily in large quantities -- abruptly stopped drinking ~ 4 days prior to admission * initially treated with Ativan and Precedex * now intubated and on propofol * PRN ativan ordered (5) Benign essential HTN: Code(s): I10 - Essential (primary) hypertension Status: Chronic Assessment and Plan: * initiated elevated on presentation (likely due to alcohol withdrawal) * better readings noted with sedation * holding BP medications at this time * follow trend of hemodynamics (6) Abnormal liver enzymes: Code(s): R74.8 - Abnormal levels of other serum enzymes Status: Acute Assessment and Plan: * presumably secondary to alcohol abuse * hepatitis studies and RUQ ultrasound noted * follow trend of LFTs (7) Diabetes type 1, controlled: Qualifiers: Diabetes mellitus complication status: without complication Qualified Code(s): E10.9 - Type 1 diabetes mellitus without complications Code(s): E10.9 - Type 1 diabetes mellitus without complications Status: Chronic Assessment and Plan: * follow accu-cheks * usually on insulin pump as an outpatient * glycemic control per hospitalist/inspector aide Will continue to follow Subjective Date/time seen: 01/03/24 10:03 Interval history: Follow-up for acute hyponatremia. Sodium level continues to slowly improve in an appropriate fashion as noted by trend of labs in the last 24 hours; remains intubated/sedated and on mechanical ventilation; stable hemodynamics noted; tolerating tube feeds as well; no other acute issues/events overnight or earlier this morning. Exam Narrative: General: WD/WN male intubated/sedat
--- NOTE | 2024-01-03 10:03 | PM.PNNEP ---
Progress Note: A&P Assessment and Plan (1) Hyponatremia: Code(s): E87.1 - Hypo-osmolality and hyponatremia Status: Acute Assessment and Plan: slow and steady improvement quite severe on presentation with sodium level of 103 on presentation review on labs demonstrates he has had issues with this in the past (but to this extreme) given concerns of neurological symptoms prior to intubation, initiated on 3% saline follow serial BMPs/sodiums to ensure overcorrection does not occur goal of therapy is a change of 6 - 8mmol/L in 24 hours s/p 3% saline on admission risk factors for low sodium noted: alcohol abuse thyroid disease (?) -- TSH and FT4 results noted HCTZ use SSRI use evaluation to date: thyroid studies noted cortisol okay urine electrolytes prerenal SPEP/UPEP and serum/urine osmo pending follow repeat sodium levels (2) Hypokalemia: Code(s): E87.6 - Hypokalemia Status: Acute Assessment and Plan: doing better suspect due to total body depletion from poor oral intake replace as needed magneisum okay follow trend (3) Acute respiratory failure: Code(s): J96.00 - Acute respiratory failure, unspecified whether with hypoxia or hypercapnia Status: Acute Assessment and Plan: intubated for airway protection no pathology noted by chest imaging suspect related to alcohol withdrawal and sedation follow respiratory status (4) Alcohol withdrawal syndrome: Code(s): F10.239 - Alcohol dependence with withdrawal, unspecified Status: Acute Assessment and Plan: as evident by symptoms on admission: tremors tachycardia diaphoresis anxiety was drinking vodka daily in large quantities -- abruptly stopped drinking ~ 4 days prior to admission initially treated with Ativan and Precedex now intubated and on propofol PRN ativan ordered (5) Benign essential HTN: Code(s): I10 - Essential (primary) hypertension Status: Chronic Assessment and Plan: initiated elevated on presentation (likely due to alcohol withdrawal) better readings noted with sedation holding BP medications at this time follow trend of hemodynamics (6) Abnormal liver enzymes: Code(s): R74.8 - Abnormal levels of other serum enzymes Status: Acute Assessment and Plan: presumably secondary to alcohol abuse hepatitis studies and RUQ ultrasound noted follow trend of LFTs (7) Diabetes type 1, controlled: Qualifiers: Diabetes mellitus complication status: without complication Qualified Code(s): E10.9 - Type 1 diabetes mellitus without complications Code(s): E10.9 - Type 1 diabetes mellitus without complications Status: Chronic Assessment and Plan: follow accu-cheks usually on insulin pump as an outpatient glycemic control per hospitalist/wig comber Will continue to follow Subjective Date/time seen: 01/03/24 10:03 Interval history: Follow-up for acute hyponatremia. Sodium level continues to slowly improve in an appropriate fashion as noted by trend of labs in the last 24 hours; remains intubated/sedated and on mechanical ventilation; stable hemodynamics noted; tolerating tube feeds as well; no other acute issues/events overnight or earlier this morning. Exam Narrative: General: WD/WN male intubated/sedated and on mechanical ventilation Heart: tachycardic, normal S1 and S2; no rub Lungs: clear to auscultation Abdomen: soft, nontender, nondistended, hypoactive bowel sounds Extremities: no cyanosis or clubbing; no edema Skin: no rash Objective Data Vital Signs Vital Signs: Vital Signs Temp Pulse Resp BP Pulse Ox O2 Del Method FiO2 01/03/24 10:00 103 H 20 01/03/24 09:35 104 H 24 H 01/03/24 08:00 30 01/03/24 08:00 99 Mechanical Ventilation 30 01/03/24 08:00 106 H 18 01/03/24 08:00
[2024-01-03 11:13] LABS: Sodium 117 mmol/L (137-145)
[2024-01-03] MEDS: chlordiazePOXIDE (*CRX) 25 MG CAPSULE FEED TUBE ×3 (11:23→23:38)
[2024-01-03] MEDS: PROPOFOL IV EMULSION 100 ML 8.93 MG IV CONT (11:23)
[2024-01-03 11:26] LABS: Glucose Point of Care 334 mg/dl (65-105)
[2024-01-03 13:03] LABS: Protein, Total 5.5 g/dL (6.1-8.1)
[2024-01-03] MEDS: LIDOCAINE HCL 1% PF INJ 5 ML VIAL INFILTRATE (14:00)
[2024-01-03] MEDS: MIDAZOLAM 100MG/NS 100ML(*CRX) 100 MG/100 ML BAG IV CONT (14:01)
[2024-01-03] MEDS: ALBUMIN HUMAN 5% 25 GM/500 ML BTL IV CONT (15:12)
[2024-01-03 15:25] LABS: Sodium 118 mmol/L (137-145)
[2024-01-03 17:47] LABS: Glucose Point of Care 357 mg/dl (65-105)
[2024-01-03] MEDS: dexmedeTOMIDine 400 MCG/100 ML 400 MCG/100 ML BAG 9.38 MCG IV CONT (18:59)
[2024-01-03] MEDS: CENTRAL LINE FLUSH 20 ML IV PUSH (20:50)
[2024-01-03] MEDS: CENTRAL LINE FLUSH 10 ML IV PUSH (20:50)
[2024-01-03 21:20] LABS: Sodium 120 mmol/L (137-145)
[2024-01-03 23:46] LABS: Glucose Point of Care 282 mg/dl (65-105)
--- NOTE | 2024-01-03 23:59 | PC.NURSE ---
Updated Dr. Kearns regarding elevated temperature of 101.8. New orders received.
[2024-01-04] VITALS (35 sets, daily range): BP systolic 96–127; BP diastolic 56–76; PULSE 81–103; RESP 12–23; TEMP 37–38.8; O2SAT 94–100
[2024-01-04] MEDS: ACETAMINOPHEN ELIXIR 325 MG/10.15 ML UDC 500 MG PO (00:07)
[2024-01-04 00:26] LABS: Appearance Urine Clear (Clear); Bacteria Urine None Seen /hpf; Bilirubin Urine Negative (Negative); Blood Urine Negative (Negative); Color Urine Dark Yellow (Yellow); Glucose Urine UA 3+ mg/dL (Negative); Ketones Urine Trace mg/dL (Negative); Leukocyte Esterase Ur Negative LEU/UL (Negative); Nitrate Urine Negative (Negative); Non Pathogenic Casts 0-2; Protein Urine Trace mg/dL (Negative); RBC Urine 0-2 /hpf (0-2); Specific Grav Ur 1.027 (1.001-1.035); Squamous Epithelial Cell Urine Few /hpf (Few); WBC Urine 0-5 /hpf (0-3); pH Urine 6.5 (5.0-9.0)
[2024-01-04 00:46] LABS: Urobilinogen Urine >=8.0 mg/dL (<2.0)
--- NOTE | 2024-01-04 00:48 | PC.NURSE ---
Attempted to call sodium level to Dr. Johnson at [phone] left message to return call. Attempted to call him again at [phone] with no answer. Sodium level 120. Dr. Kearns notified at 0000. No new orders at this time. Level to be drawn with am labs.
[2024-01-04 00:49] LABS: Add Urine Microscopic? YES
--- NOTE | 2024-01-04 01:33 | PM.EVENT ---
Event Note Event Note Event Note: The patient spiked fever 101.8. No definitive source of infection known. Stat blood cultures and sputum culture were ordered as well as a UA with reflex. UA did not demonstrate acute source of infection. Nursing staff reports the patient has had a large amount of thick secretions ever since he was intubated. However given the patient's fever did not start until 3 days after initiation of hospitalization will cover the patient for ventilator associated pneumonia instead of aspiration pneumonia. No infiltrate was noted on patient's x-ray from the morning of the 3rd. Repeat x-ray is artery ordered for the 4th as per protocol. 30 minute spent in critical care activities including review patient's chart, physical exam and evaluation and discussion the patient's case with nursing staff.
[2024-01-04] MEDS: PROPOFOL IV EMULSION 100 ML 4.46 MG IV CONT (02:53)
[2024-01-04] MEDS: CEFEPIME 2 GM/NS 50 ML 2 GM/50 ML BAG IVPB ×3 (02:54→17:09)
[2024-01-04] MEDS: VANCOMYCIN 2,000 MG/NS 500 ML 2,000 MG/500 ML BAG 250 MG IVPB (02:55)
[2024-01-04] MEDS: dexmedeTOMIDine 400 MCG/100 ML 400 MCG/100 ML BAG 9.38 MCG IV CONT (03:10)
[2024-01-04] MEDS: chlordiazePOXIDE (*CRX) 25 MG CAPSULE FEED TUBE ×4 (05:33→23:31)
[2024-01-04] MEDS: CENTRAL LINE FLUSH 20 ML IV PUSH (05:34)
[2024-01-04] MEDS: CENTRAL LINE FLUSH 10 ML IV PUSH ×3 (05:34→23:31)
[2024-01-04] MEDS: INSULIN ASPART (*BKC) 100 UNITS/ML SUB-Q ×3 (05:38→12:05)
[2024-01-04 05:48] LABS: Glucose Point of Care 262 mg/dl (65-105)
[2024-01-04 05:50] LABS: Basophils Percent Auto 0.3 % (0.2-1.2); Eosinophils Percent Auto 0.4 % (0-4.4); Hematocrit 29.4 % (42.0-52.0); Hemoglobin 10.3 g/dL (14.0-18.0); Immature Granulocyte Absolute 0.04 K/mm3 (0.00-0.031); Immature Granulocyte Percent A 0.5 % (0-0.5); Lymphocytes Absolute Auto 0.73 K/mm3 (0.9-3.2); Lymphocytes Percent Auto 9.8 % (18.3-44.2); Mean Corpuscular Volume 88.6 fl (80-100); Mean Platelet Volume 9.4 fl (7.4-10.4); Monocytes Absolute Auto 1.3 K/mm3 (0.1-0.6); Monocytes Percent Auto 17.1 % (2.6-8.5); Neutrophils Absolute Auto 5.4 K/mm3 (1.3-6.7); Neutrophils Percent Auto 71.9 % (45.5-73.1); Platelet Count Result 240 k/mm3 (150-375); Red Blood Count 3.32 M/mm3 (4.6-6.20); Red Cell Distribution Width 12.9 % (11.5-14.5); White Blood Count 7.5 K/mm3 (4.5-10.0)
[2024-01-04 06:05] LABS: Alanine Aminotransferase 140 U/L (6-50); Albumin Level 3.3 g/dL (3.5-5.1); Alkaline Phosphatase 175 U/L (38-126); Anion Gap 4 mmol/L (4-12); Aspartate Amino Transferase 213 U/L (17-59); Bilirubin,Total 0.9 mg/dL (0.2-1.3); Blood Urea Nitrogen 12 mg/dL (9-20); Calcium 7.7 mg/dL (8.4-10.2); Carbon Dioxide 30 mmol/L (22-30); Chloride 86 mmol/L (98-107); Estimated CRCL calculation 124 ml/min; Estimated Glomerular Filt Rate > 60; Glucose 331 mg/dL (65-110); Phosphorus 2.7 mg/dL (2.5-4.5); Sodium 120 mmol/L (137-145)
[2024-01-04 06:26] LABS: Alveolar/Arterial O2 Gradient 54.2 mmHg; Base Excess ABG 2.5 mEq/l (+/-2.0); Carboxyhemoglobin 0.3 % THb (0-2.0); Fractional Inspired Oxygen 30 %; HCO3 ABG 25.4 mEq/l (22.0-26.0); Methemoglobin ABG 0.3 %THb (0-1.5); Oxygen Content ABG 16.8 %vol (16.0-22.0); Oxygen Saturation ABG 98.7 % (95.0-100.0); Oxyhemoglobin 98.3 % THb (90.0-100.0); PCO2 ABG 33.5 mmHg (35.0-45.0); PO2 ABG 120.3 mmHg (80.0-100.0); PO2 FiO2 Ratio Arterial Blood 4.01 %; Reduced Hemoglobin 1.1 %THb (0-5.0); pH ABG 7.498 (7.350-7.450)
[2024-01-04 06:27] LABS: Device VENTILATOR; Modified Allen's Test Pass; Site Drawn RIGHT RADIAL
[2024-01-04 06:28] LABS: Arterial Blood Gas PEEP 5 cmH2O; Arterial Blood Gas Tidal Volume 420 ml; Arterial Blood Gas Vent Mode CMV; Arterial Blood Gas Ventilator rate 16 /MIN
[2024-01-04] MEDS: FLUoxetine HCL 10 MG CAPSULE 30 MG PO (08:21)
[2024-01-04] MEDS: ARIPiprazole 5 MG TABLET PO (08:21)
[2024-01-04] MEDS: ENOXAPARIN 40 MG/0.4 ML SYRINGE SUB-Q (08:21)
[2024-01-04] MEDS: buPROPion HCL 100 MG TABLET FEED TUBE ×3 (08:22→17:08)
[2024-01-04] MEDS: INSULIN GLARGINE (*BKC) 100 UNITS/ML 30 UNITS SUB-Q (08:22)
--- NOTE | 2024-01-04 08:23 | WPDINTPN ---
Progress Note: A&P Assessment and Plan (1) Respiratory failure: Code(s): J96.90 - Respiratory failure, unspecified, unspecified whether with hypoxia or hypercapnia Status: Acute Assessment and Plan: Patient presented with alcohol withdrawal symptoms, received Ativan and Precedex infusion and was more somnolent, was intubated for airway protection. -Currently on CMV mode of ventilation, peep of 5. ABG reviewed continue tidal volume to 420 and rate to 16 -chest x-ray reviewed Sedation holiday done and patient placed on 12/04 PSV weaning trial. If does well, will consider extubation (2) Alcohol withdrawal syndrome: Code(s): F10.239 - Alcohol dependence with withdrawal, unspecified Status: Acute Assessment and Plan: Patient presented with tremors, tachycardia, diaphoresis, anxiety. Patient has been drinking vodka daily in large quantities, he has stopped drinking since the last 4 days. -patient was given Ativan and started on Precedex infusion, was more somnolent and was intubated for airway protection, Precedex infusion was discontinued -currently on propofol infusion -continue scheduled per tube Librium and IV Precedex infusion. (3) Hyponatremia: Code(s): E87.1 - Hypo-osmolality and hyponatremia Status: Acute Assessment and Plan: Severe hyponatremia with sodium levels of 103 on admission -nephrology is managing with management and monitoring -status post 3% saline at 30 mL/hour for 500 mL initially -Serial BMPs are being done as per software release manager -sodium level 120 this morning -continue to monitor urine output, electrolytes and renal function (4) Electrolyte imbalance: Code(s): E87.8 - Other disorders of electrolyte and fluid balance, not elsewhere classified Status: Acute Assessment and Plan: Will replace potassium and phosphate (5) Benign essential HTN: Code(s): I10 - Essential (primary) hypertension Status: Chronic Assessment and Plan: Currently patient on positive pressure ventilation and propofol infusion for sedation -blood pressures have been stable, will hold all blood pressure medications for now. (Takes lisinopril and HCTZ at home) (6) Diabetes type 1, controlled: Qualifiers: Diabetes mellitus complication status: without complication Qualified Code(s): E10.9 - Type 1 diabetes mellitus without complications Code(s): E10.9 - Type 1 diabetes mellitus without complications Status: Chronic Assessment and Plan: Accu-Cheks and sliding scale insulin -hemoglobin A1c is 6.0 this admission -continue Lantus and increase dose (7) OZZY (obstructive sleep apnea): Code(s): G47.33 - Obstructive sleep apnea (adult) (pediatric) Status: Acute Assessment and Plan: Patient's spouse stated that he normally uses CPAP but due to some insurance issues he has not used his CPAP since the beginning of December 2023 -currently intubated on mechanical ventilation (8) Major depression, recurrent, chronic: Code(s): F33.9 - Major depressive disorder, recurrent, unspecified Status: Acute Assessment and Plan: Patient is on lorazepam, trazodone, aripiprazole, bupropion. 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 WBC normal there is some haziness in right perihilar region on the chest x-ray Patient was started on antibiotics broad-spectrum overnight Blood culture and sputum sent Will check procalcitonin Plan DVT prophyla
[2024-01-04 08:24] LABS: Albumin 3.4 g/dL (3.8-4.8); Alpha 1 Globulin 0.3 g/dL (0.2-0.3); Alpha 2 Globulin 0.5 g/dL (0.5-0.9); Beta 1 Globulin 0.4 g/dL (0.4-0.6); Gamma Globulin 0.6 g/dL (0.8-1.7)
[2024-01-04] MEDS: PANTOPRAZOLE SODIUM IV 40 MG VIAL IV PUSH (08:24)
[2024-01-04] MEDS: MINERAL OIL/WHITE PETROLATUM OINTMENT 1 APPLIC EACH EYE (08:24)
--- NOTE | 2024-01-04 08:31 | PM.IMPN ---
Progress Note: A&P Assessment and Plan (1) Acute respiratory failure: Code(s): J96.00 - Acute respiratory failure, unspecified whether with hypoxia or hypercapnia Status: Acute (2) Fever: Code(s): R50.9 - Fever, unspecified Status: Acute (3) Acute alcoholic hepatitis: Code(s): K70.10 - Alcoholic hepatitis without ascites Status: Acute (4) Alcohol withdrawal seizure with delirium: Code(s): F10.931 - Alcohol use, unspecified with withdrawal delirium; R56.9 - Unspecified convulsions Status: Acute (5) Hyponatremia: Code(s): E87.1 - Hypo-osmolality and hyponatremia Status: Acute (6) Sleep apnea: Qualifiers: Sleep apnea type: unspecified type Qualified Code(s): G47.30 - Sleep apnea, unspecified Code(s): G47.30 - Sleep apnea, unspecified Status: Acute (7) Diabetes type 1, controlled: Qualifiers: Diabetes mellitus complication status: without complication Qualified Code(s): E10.9 - Type 1 diabetes mellitus without complications Code(s): E10.9 - Type 1 diabetes mellitus without complications Status: Chronic Plan (1) Respiratory failure: Code(s): J96.90 - Respiratory failure, unspecified, unspecified whether with hypoxia or hypercapnia Status: Acute Assessment and Plan: Patient presented with alcohol withdrawal symptoms, received Ativan and Precedex infusion and was more somnolent, was intubated for airway protection. extubated today, patient tolerated extubation (2) Alcohol withdrawal syndrome: Code(s): F10.239 - Alcohol dependence with withdrawal, unspecified Status: Acute Assessment and Plan: Patient presented with tremors, tachycardia, diaphoresis, anxiety. Patient has been drinking vodka daily in large quantities, he has stopped drinking since the last 4 days before arrival in the ED patient received propofol up patient failed Ativan and Precedex infusion, patient is off of propofol, extubated monitor and management alcohol withdrawal symptom per [facility] protocol (3) Hyponatremia: Code(s): E87.1 - Hypo-osmolality and hyponatremia Status: Acute Assessment and Plan: Severe hyponatremia with sodium levels of 103 on admission -nephrology is managing with management and monitoring -status post 3% saline at 30 mL/hour for 500 mL initially -Serial BMPs are being done as per spool fixer -sodium level 123 -continue to monitor urine output, electrolytes and renal function (4) Electrolyte imbalance: Code(s): E87.8 - Other disorders of electrolyte and fluid balance, not elsewhere classified Status: Acute Assessment and Plan: Will replace potassium and phosphate (5) Benign essential HTN: Code(s): I10 - Essential (primary) hypertension Status: Chronic Assessment and Plan: Currently patient on positive pressure ventilation and propofol infusion for sedation -blood pressures have been stable, will hold all blood pressure medications for now. (Takes lisinopril and HCTZ at home) (6) Diabetes type 1, controlled: Qualifiers: Diabetes mellitus complication status: without complication Qualified Code(s): E10.9 - Type 1 diabetes mellitus without complications Code(s): E10.9 - Type 1 diabetes mellitus without complications Status: Chronic Assessment and Plan: Accu-Cheks and sliding scale insulin -hemoglobin A1c is 6.0 this admission -continue Lantus and increase dose (7) OZZY (obstructive sleep apnea): Code(s): G47.33 - Obstructive sleep apnea (adult) (pediatric) Status: Acute Assessment and Plan: CPAP at home setting (8) Major depression, recurrent, chronic: Code(s): F33.9 - Major depressive disorder, recurrent, unspecified Status: Acute Assessment and Plan: Patient is on lorazepam, trazodone, aripiprazole, bupropion. fluoxetine at home
[2024-01-04 08:32] LABS: Glucose Point of Care 329 mg/dl (65-105)
[2024-01-04] MEDS: FOLIC ACID 1 MG/0.2 ML INJ IV PUSH (08:32)
[2024-01-04 08:55] LABS: Creatine Kinase 38 U/L (55-170)
[2024-01-04 09:08] LABS: Procalcitonin 3.1 ng/mL
[2024-01-04 09:16] LABS: Alveolar/Arterial O2 Gradient 49.6 mmHg; Base Excess ABG 5.3 mEq/l (+/-2.0); Fractional Inspired Oxygen 30 %; HCO3 ABG 29.3 mEq/l (22.0-26.0); Oxygen Content ABG 15.9 %vol (16.0-22.0); Oxygen Saturation ABG 98.5 % (95.0-100.0); Oxyhemoglobin 98.1 % THb (90.0-100.0); PCO2 ABG 40.4 mmHg (35.0-45.0); PO2 ABG 116.8 mmHg (80.0-100.0); PO2 FiO2 Ratio Arterial Blood 3.89 %; Total Hemoglobin 11.4 g/dL (12.0-18.0); pH ABG 7.478 (7.350-7.450)
[2024-01-04 09:18] LABS: Device VENTILATOR; Site Drawn RIGHT RADIAL
[2024-01-04 09:19] LABS: Arterial Blood Gas PEEP 5 cmH2O; Arterial Blood Gas Pressure Support 8 cmH2O; Arterial Blood Gas Vent Mode SPONTANEOUS
--- NOTE | 2024-01-04 09:25 | PM.PNNEP ---
Progress Note: A&P Assessment and Plan (1) Hyponatremia: Code(s): E87.1 - Hypo-osmolality and hyponatremia Status: Acute Assessment and Plan: slow and steady improvement quite severe on presentation with sodium level of 103 on presentation review on labs demonstrates he has had issues with this in the past (but to this extreme) given concerns of neurological symptoms prior to intubation, initiated on 3% saline follow serial BMPs/sodiums to ensure overcorrection does not occur goal of therapy is a change of 6 - 8mmol/L in 24 hours s/p 3% saline on admission risk factors for low sodium noted: alcohol abuse thyroid disease (?) -- TSH and FT4 results noted HCTZ use SSRI use evaluation to date: thyroid studies noted cortisol okay urine electrolytes prerenal SPEP/UPEP and serum/urine osmo pending changed free water tube flushes to normal saline flushes follow repeat sodium levels (2) Hypokalemia: Code(s): E87.6 - Hypokalemia Status: Acute Assessment and Plan: doing better suspect due to total body depletion from poor oral intake replace as needed magneisum okay follow trend (3) Acute respiratory failure: Code(s): J96.00 - Acute respiratory failure, unspecified whether with hypoxia or hypercapnia Status: Acute Assessment and Plan: intubated for airway protection no pathology noted by chest imaging suspect related to alcohol withdrawal and sedation follow respiratory status (4) Alcohol withdrawal syndrome: Code(s): F10.239 - Alcohol dependence with withdrawal, unspecified Status: Acute Assessment and Plan: as evident by symptoms on admission: tremors tachycardia diaphoresis anxiety was drinking vodka daily in large quantities -- abruptly stopped drinking ~ 4 days prior to admission initially treated with Ativan and Precedex now intubated and on propofol PRN ativan ordered (5) Benign essential HTN: Code(s): I10 - Essential (primary) hypertension Status: Chronic Assessment and Plan: initiated elevated on presentation (likely due to alcohol withdrawal) better readings noted with sedation holding BP medications at this time follow trend of hemodynamics (6) Abnormal liver enzymes: Code(s): R74.8 - Abnormal levels of other serum enzymes Status: Acute Assessment and Plan: presumably secondary to alcohol abuse hepatitis studies and RUQ ultrasound noted follow trend of LFTs (7) Diabetes type 1, controlled: Qualifiers: Diabetes mellitus complication status: without complication Qualified Code(s): E10.9 - Type 1 diabetes mellitus without complications Code(s): E10.9 - Type 1 diabetes mellitus without complications Status: Chronic Assessment and Plan: follow accu-cheks usually on insulin pump as an outpatient glycemic control per hospitalist/back tender insulation board Will continue to follow Subjective Date/time seen: 01/04/24 09:25 Interval history: Follow-up for acute hyponatremia. Remain intubated and on mechanical ventilation; febrile overnight so cultures obtained and antibiotics adjusted; sodium appears relatively stable if not with slow improvement in the last 24 hours with current interventions/therapy; at bedside and we discussed the situation. Exam Narrative: General: WD/WN male intubated/sedated and on mechanical ventilation Heart: tachycardic, normal S1 and S2; no rub Lungs: clear to auscultation Abdomen: soft, nontender, nondistended, hypoactive bowel sounds Extremities: no cyanosis or clubbing; no edema Skin: no nodules Objective Data Vital Signs Vital Signs: Vital Signs Temp Pulse Resp BP Pulse Ox O2 Del Method O2 Flow Rate 01/04/24 09:25 100 Nasal Cannula 2 01/04/24 08:28 83 100 Mechanical Ventilation 01/04/24 07:19 82 17 01/04/24 07:
--- NOTE | 2024-01-04 09:25 | P.PNNP_ITS ---
Progress Note: A&P Assessment and Plan (1) Hyponatremia: Code(s): E87.1 - Hypo-osmolality and hyponatremia Status: Acute Assessment and Plan: * slow and steady improvement * quite severe on presentation with sodium level of 103 on presentation * review on labs demonstrates he has had issues with this in the past (but to this extreme) * given concerns of neurological symptoms prior to intubation, initiated on 3% saline * follow serial BMPs/sodiums to ensure overcorrection does not occur * goal of therapy is a change of 6 - 8mmol/L in 24 hours * s/p 3% saline on admission * risk factors for low sodium noted: * alcohol abuse * thyroid disease (?) -- TSH and FT4 results noted * HCTZ use * SSRI use * evaluation to date: * thyroid studies noted * cortisol okay * urine electrolytes prerenal * SPEP/UPEP and serum/urine osmo pending * changed free water tube flushes to normal saline flushes * follow repeat sodium levels (2) Hypokalemia: Code(s): E87.6 - Hypokalemia Status: Acute Assessment and Plan: * doing better * suspect due to total body depletion from poor oral intake * replace as needed * magneisum okay * follow trend (3) Acute respiratory failure: Code(s): J96.00 - Acute respiratory failure, unspecified whether with hypoxia or hypercapnia Status: Acute Assessment and Plan: * intubated for airway protection * no pathology noted by chest imaging * suspect related to alcohol withdrawal and sedation * follow respiratory status (4) Alcohol withdrawal syndrome: Code(s): F10.239 - Alcohol dependence with withdrawal, unspecified Status: Acute Assessment and Plan: * as evident by symptoms on admission: * tremors * tachycardia * diaphoresis * anxiety * was drinking vodka daily in large quantities -- abruptly stopped drinking ~ 4 days prior to admission * initially treated with Ativan and Precedex * now intubated and on propofol * PRN ativan ordered (5) Benign essential HTN: Code(s): I10 - Essential (primary) hypertension Status: Chronic Assessment and Plan: * initiated elevated on presentation (likely due to alcohol withdrawal) * better readings noted with sedation * holding BP medications at this time * follow trend of hemodynamics (6) Abnormal liver enzymes: Code(s): R74.8 - Abnormal levels of other serum enzymes Status: Acute Assessment and Plan: * presumably secondary to alcohol abuse * hepatitis studies and RUQ ultrasound noted * follow trend of LFTs (7) Diabetes type 1, controlled: Qualifiers: Diabetes mellitus complication status: without complication Qualified Code(s): E10.9 - Type 1 diabetes mellitus without complications Code(s): E10.9 - Type 1 diabetes mellitus without complications Status: Chronic Assessment and Plan: * follow accu-cheks * usually on insulin pump as an outpatient * glycemic control per hospitalist/it program engagement director Will continue to follow Subjective Date/time seen: 01/04/24 09:25 Interval history: Follow-up for acute hyponatremia. Remain intubated and on mechanical ventilation; febrile overnight so cultures obtained and antibiotics adjusted; sodium appears relatively stable if not with slow improvement in the last 24 hours with current interventions/therapy; at bedside and we discussed the situation. Exam Narrative:
[2024-01-04 10:24] LABS: Sodium 123 mmol/L (137-145)
--- NOTE | 2024-01-04 10:47 | PCNFU ---
Nutrition Follow-Up Complete: Increased protein energy needs related to mechanical ventilation as evidenced by need for full tube feeding Goal: Adequate PO intake at least 75% meals and supplements to support wound healing Pt current nutrition is TF via NG of Vital AF 1.2 @ 60mL/hr. Nutrition recommendation: Continue with Vital AF 1.2 @ 60mL/hr. TF Rx providing 1584 kcal, 99g protein, 146g carbohydrate and 1071 mL H20. Adjust water flushes prn to maintain hydration. If able to stop TF, recommend advancing diet as medically able to consistent carbohydrate. Last recorded weight is 74.9 kg. Weight up 9 lbs/5% x 3 days. Bowel Motility: GI abd soft/nontender. No BM documented. Labs Reviewed: Hgb 10.3, Hct 29.4, Na 123, glucose 331 Meds Noted: Prozac, folic acid, Novolog, Lantus, Precedex (held), Propofol d/c Skin: no pressure ulcers Additional Notes: Patient extubated with goal to advance diet today per RN. Patient on nasal cannula. NG still in place. Propofol discontinued, Precedex held. Per Tool Design Draftsperson note, patient is tolerating TF. Novolog/Lantus added today. No edema noted. Monitoring tube feeding tolerance, labs, weights, plan of care Follow daily in rounds, reassess Wednesday and Fridays.
[2024-01-04 11:43] LABS: Glucose Point of Care 300 mg/dl (65-105)
[2024-01-04 12:22] LABS: Creatinine, Random Urine 77 mg/dL (20-320); Total Protein/Creatinine Ratio 221 mg/g creat (25-148)
[2024-01-04 12:22] LABS: Kappa\\Lambda Light Chains 1.02 (0.26-1.65); Lambda Light Chain 17.2 mg/L (5.7-26.3)
[2024-01-04] MEDS: dexmedeTOMIDine 400 MCG/100 ML 400 MCG/100 ML BAG 5.63 MCG IV CONT (13:49)
[2024-01-04] MEDS: VANCOMYCIN 1,500 MG/NS 500 ML 1,500 MG/500 ML BAG 250 MG IVPB (14:20)
[2024-01-04 15:39] LABS: Glucose Point of Care 73 mg/dl (65-105)
[2024-01-04 17:22] LABS: Glucose Point of Care 76 mg/dl (65-105)
[2024-01-04 17:34] LABS: Sodium 125 mmol/L (137-145)
[2024-01-04 20:45] LABS: Glucose Point of Care 158 mg/dl (65-105)
[2024-01-04 23:37] LABS: Glucose Point of Care 195 mg/dl (65-105)
[2024-01-04 23:49] LABS: Sodium 125 mmol/L (137-145)
[2024-01-05] VITALS (18 sets, daily range): BP systolic 91–158; BP diastolic 59–83; PULSE 81–114; RESP 14–22; TEMP 36.6–37.5; O2SAT 94–100
[2024-01-05] MEDS: CEFEPIME 2 GM/NS 50 ML 2 GM/50 ML BAG IVPB ×3 (03:00→18:41)
[2024-01-05] MEDS: VANCOMYCIN 1,500 MG/NS 500 ML 1,500 MG/500 ML BAG 250 MG IVPB (03:02)
[2024-01-05] MEDS: INSULIN ASPART (*BKC) 100 UNITS/ML SUB-Q ×5 (04:21→23:29)
[2024-01-05 04:30] LABS: Glucose Point of Care 207 mg/dl (65-105)
[2024-01-05] MEDS: chlordiazePOXIDE (*CRX) 25 MG CAPSULE FEED TUBE ×3 (05:18→21:32)
[2024-01-05] MEDS: CENTRAL LINE FLUSH 10 ML IV PUSH ×3 (05:18→21:32)
[2024-01-05 05:26] LABS: Hematocrit 27.2 % (42.0-52.0); Hemoglobin 9.4 g/dL (14.0-18.0); Mean Corpuscular HGB Conc 34.6 g/dl (32-36); Mean Corpuscular Hemoglobin 31.3 pg (26-34); Mean Corpuscular Volume 90.7 fl (80-100); Mean Platelet Volume 9.2 fl (7.4-10.4); Platelet Count Result 274 k/mm3 (150-375); White Blood Count 7.5 K/mm3 (4.5-10.0)
[2024-01-05 05:36] LABS: Alanine Aminotransferase 112 U/L (6-50); Albumin Level 3.1 g/dL (3.5-5.1); Alkaline Phosphatase 178 U/L (38-126); Anion Gap 3 mmol/L (4-12); Aspartate Amino Transferase 89 U/L (17-59); Bilirubin,Total 0.7 mg/dL (0.2-1.3); Blood Urea Nitrogen 11 mg/dL (9-20); Calcium 7.8 mg/dL (8.4-10.2); Carbon Dioxide 31 mmol/L (22-30); Chloride 92 mmol/L (98-107); Estimated CRCL calculation 124 ml/min; Estimated Glomerular Filt Rate > 60; Glucose 168 mg/dL (65-110); Magnesium 1.9 mg/dL (1.6-2.3); Phosphorus 2.4 mg/dL (2.5-4.5); Potassium 3.6 mmol/L (3.4-5.0); Sodium 126 mmol/L (137-145); Triglycerides 58 mg/dL (<150)
[2024-01-05 07:51] LABS: Glucose Point of Care 158 mg/dl (65-105)
--- NOTE | 2024-01-05 08:16 | WPDINTPN ---
Progress Note: A&P Assessment and Plan (1) Respiratory failure: Code(s): J96.90 - Respiratory failure, unspecified, unspecified whether with hypoxia or hypercapnia Status: Acute Assessment and Plan: Patient presented with alcohol withdrawal symptoms, received Ativan and Precedex infusion and was more somnolent, was intubated for airway protection. 01/03 extubated after a successful weaning trial 01/04 on room air. Will order incentive spirometry. Up in chair -chest x-ray reviewed (2) Alcohol withdrawal syndrome: Code(s): F10.239 - Alcohol dependence with withdrawal, unspecified Status: Acute Assessment and Plan: Patient presented with tremors, tachycardia, diaphoresis, anxiety. Patient has been drinking vodka daily in large quantities, he has stopped drinking since the last 4 days. -patient was given Ativan and started on Precedex infusion, was more somnolent and was intubated for airway protection, Precedex infusion was discontinued -currently on propofol infusion -continue scheduled per tube Librium and IV Precedex infusion. (3) Hyponatremia: Code(s): E87.1 - Hypo-osmolality and hyponatremia Status: Acute Assessment and Plan: Severe hyponatremia with sodium levels of 103 on admission -nephrology is managing with management and monitoring -status post 3% saline at 30 mL/hour for 500 mL initially -Serial BMPs are being done as per paperboard boxes estimator -sodium level 126 this morning -continue to monitor urine output, electrolytes and renal function (4) Electrolyte imbalance: Code(s): E87.8 - Other disorders of electrolyte and fluid balance, not elsewhere classified Status: Acute Assessment and Plan: Will replace potassium and phosphate (5) Benign essential HTN: Code(s): I10 - Essential (primary) hypertension Status: Chronic Assessment and Plan: Currently patient on positive pressure ventilation and propofol infusion for sedation -blood pressures have been stable, will hold all blood pressure medications for now. (Takes lisinopril and HCTZ at home) (6) Diabetes type 1, controlled: Qualifiers: Diabetes mellitus complication status: without complication Qualified Code(s): E10.9 - Type 1 diabetes mellitus without complications Code(s): E10.9 - Type 1 diabetes mellitus without complications Status: Chronic Assessment and Plan: Accu-Cheks and sliding scale insulin -hemoglobin A1c is 6.0 this admission -continue Lantus but will decrease dose (7) OZZY (obstructive sleep apnea): Code(s): G47.33 - Obstructive sleep apnea (adult) (pediatric) Status: Acute Assessment and Plan: Patient's spouse stated that he normally uses CPAP but due to some insurance issues he has not used his CPAP since the beginning of December 2023 Will order CPAP S NG tube is removed (8) Major depression, recurrent, chronic: Code(s): F33.9 - Major depressive disorder, recurrent, unspecified Status: Acute Assessment and Plan: Patient is on lorazepam, trazodone, aripiprazole, bupropion. 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 WBC normal there is some haziness in right perihilar region on the chest x-ray Patient was started on antibiotics broad-spectrum overnight Blood culture and sputum sent and pending procalcitonin 3.1 Nasal MRSA screen was negative Will discontinue vancomycin but continue cefepime for now Plan DVT prophylaxis: Julio Cesar
--- NOTE | 2024-01-05 08:36 | PM.IMPN ---
Progress Note: A&P Assessment and Plan (1) Acute respiratory failure: Code(s): J96.00 - Acute respiratory failure, unspecified whether with hypoxia or hypercapnia Status: Acute (2) Elevated LFTs: Code(s): R79.89 - Other specified abnormal findings of blood chemistry Status: Acute (3) Insulin dependent diabetes mellitus: Status: Acute (4) Encephalopathy: Code(s): G93.40 - Encephalopathy, unspecified Status: Acute (5) Acute alcoholic hepatitis: Code(s): K70.10 - Alcoholic hepatitis without ascites Status: Acute (6) OZZY (obstructive sleep apnea): Code(s): G47.33 - Obstructive sleep apnea (adult) (pediatric) Status: Acute (7) Hyponatremia: Code(s): E87.1 - Hypo-osmolality and hyponatremia Status: Acute (8) Alcoholism in recovery: Code(s): F10.21 - Alcohol dependence, in remission Status: Acute Plan (1) Respiratory failure: Code(s): J96.90 - Respiratory failure, unspecified, unspecified whether with hypoxia or hypercapnia Status: Acute Assessment and Plan: Patient presented with alcohol withdrawal symptoms, received Ativan and Precedex infusion and was more somnolent, was intubated for airway protection. extubated today, patient tolerated extubation (2) Alcohol withdrawal syndrome: Code(s): F10.239 - Alcohol dependence with withdrawal, unspecified Status: Acute Assessment and Plan: Patient presented with tremors, tachycardia, diaphoresis, anxiety. Patient has been drinking vodka daily in large quantities, he has stopped drinking since the last 4 days before arrival in the ED patient received propofol up patient failed Ativan and Precedex infusion, patient is off of propofol, extubated monitor and management alcohol withdrawal symptom per [facility] protocol (3) Hyponatremia: Code(s): E87.1 - Hypo-osmolality and hyponatremia Status: Acute Assessment and Plan: Severe hyponatremia with sodium levels of 103 on admission -nephrology is managing with management and monitoring -status post 3% saline at 30 mL/hour for 500 mL initially -Serial BMPs are being done as per mastic floor layer -sodium level 123 -continue to monitor urine output, electrolytes and renal function (4) Electrolyte imbalance: Code(s): E87.8 - Other disorders of electrolyte and fluid balance, not elsewhere classified Status: Acute Assessment and Plan: Will replace potassium and phosphate (5) Benign essential HTN: Code(s): I10 - Essential (primary) hypertension Status: Chronic Assessment and Plan: Currently patient on positive pressure ventilation and propofol infusion for sedation -blood pressures have been stable, will hold all blood pressure medications for now. (Takes lisinopril and HCTZ at home) (6) Diabetes type 1, controlled: Qualifiers: Diabetes mellitus complication status: without complication Qualified Code(s): E10.9 - Type 1 diabetes mellitus without complications Code(s): E10.9 - Type 1 diabetes mellitus without complications Status: Chronic Assessment and Plan: Accu-Cheks and sliding scale insulin -hemoglobin A1c is 6.0 this admission -continue Lantus and increase dose (7) OZZY (obstructive sleep apnea): Code(s): G47.33 - Obstructive sleep apnea (adult) (pediatric) Status: Acute Assessment and Plan: CPAP at home setting (8) Major depression, recurrent, chronic: Code(s): F33.9 - Major depressive disorder, recurrent, unspecified Status: Acute Assessment and Plan: Patient is on lorazepam, trazodone, aripiprazole, bupropion. fluoxetine at home -will continue aripiprazole, bupropion and fluoxetine (9) Abnormal liver enzymes: Code(s): R74.8 - Abnormal levels of other serum enzymes Status: Acute Assessment and Plan: Likely related to alcohol liver dise
[2024-01-05] MEDS: POTASSIUM PHOS,M-BASIC-D-BASIC 15 MMOL in SODIUM CHLORIDE 0.9% IV 250 ML 63.75 MMOL IVPB (08:37)
[2024-01-05] MEDS: buPROPion HCL 100 MG TABLET FEED TUBE ×3 (09:34→16:49)
[2024-01-05] MEDS: ARIPiprazole 5 MG TABLET PO (09:34)
[2024-01-05] MEDS: FLUoxetine HCL 10 MG CAPSULE 30 MG PO (09:35)
[2024-01-05] MEDS: ENOXAPARIN 40 MG/0.4 ML SYRINGE SUB-Q (09:35)
[2024-01-05] MEDS: FOLIC ACID 1 MG/0.2 ML INJ IV PUSH (09:35)
[2024-01-05] MEDS: INSULIN GLARGINE (*BKC) 100 UNITS/ML 20 UNITS SUB-Q (09:35)
[2024-01-05] MEDS: PANTOPRAZOLE SODIUM IV 40 MG VIAL IV PUSH (09:36)
--- NOTE | 2024-01-05 10:48 | PCFNICU ---
ICU Rounding Note: Pt current nutrition is Soft and Bite Sized, level 6/DBCC. Last recorded weight is 75.2 kg-stable Bowel Motility: No BM reported. Labs Reviewed: Glu 168, Cr 0.6,Na 126, Alb 3.1 Meds Noted:Protonix,Lantus, Lovenox, Wellbutrin Skin: WNL Additional Notes: Patient was extubated on 01/03. Swallow study today recommending soft and bite sized, Level, 6 diet. Agree with diet orders. Monitoring diet orders, labs, weights, plan of care Follow daily in rounds, reassess every 3 days.
[2024-01-05 11:21] LABS: Glucose Point of Care 220 mg/dl (65-105)
--- NOTE | 2024-01-05 11:25 | PCSTNOTE ---
Please refer to the Bedside Swallow Evaluation in the EMR. Please note, silent aspiration cannot be ruled out at bedside.
[2024-01-05 11:28] LABS: Sodium 125 mmol/L (137-145)
--- NOTE | 2024-01-05 12:02 | P.PNNP_ITS ---
Progress Note: A&P Assessment and Plan (1) Hyponatremia: Code(s): E87.1 - Hypo-osmolality and hyponatremia Status: Acute Assessment and Plan: * slow and steady improvement * quite severe on presentation with sodium level of 103 on presentation * review on labs demonstrates he has had issues with this in the past (but to this extreme) * given concerns of neurological symptoms prior to intubation, initiated on 3% saline * was on serial BMPs/sodiums to ensure overcorrection does not occur * goal of therapy is a change of 6 - 8mmol/L in 24 hours - this has been acheived * s/p 3% saline on admission * risk factors for low sodium noted: * alcohol abuse * thyroid disease (?) -- TSH and FT4 results noted * HCTZ use * SSRI use * evaluation to date: * thyroid studies noted * cortisol okay * urine electrolytes prerenal * SPEP/UPEP and serum/urine osmo pending * changed free water tube flushes to normal saline flushes * follow repeat sodium levels (2) Hypokalemia: Code(s): E87.6 - Hypokalemia Status: Acute Assessment and Plan: * doing better * suspect due to total body depletion from poor oral intake * replace as needed * magneisum okay * follow trend (3) Acute respiratory failure: Code(s): J96.00 - Acute respiratory failure, unspecified whether with hypoxia or hypercapnia Status: Acute Assessment and Plan: * resolved - extubated * initially intubated for airway protection * no pathology noted by chest imaging * suspect related to alcohol withdrawal and sedation * follow respiratory status (4) Alcohol withdrawal syndrome: Code(s): F10.239 - Alcohol dependence with withdrawal, unspecified Status: Acute Assessment and Plan: * as evident by symptoms on admission: * tremors * tachycardia * diaphoresis * anxiety * was drinking vodka daily in large quantities -- abruptly stopped drinking ~ 4 days prior to admission * PRN ativan ordered (5) Benign essential HTN: Code(s): I10 - Essential (primary) hypertension Status: Chronic Assessment and Plan: * initiated elevated on presentation (likely due to alcohol withdrawal) * better readings better with sedation (when on ventilator) * BP starting to rise -- probably okay to slowly re-introduce BP medications * follow trend of hemodynamics (6) Abnormal liver enzymes: Code(s): R74.8 - Abnormal levels of other serum enzymes Status: Acute Assessment and Plan: * presumably secondary to alcohol abuse * hepatitis studies and RUQ ultrasound noted * follow trend of LFTs (7) Diabetes type 1, controlled: Qualifiers: Diabetes mellitus complication status: without complication Qualified Code(s): E10.9 - Type 1 diabetes mellitus without complications Code(s): E10.9 - Type 1 diabetes mellitus without complications Status: Chronic Assessment and Plan: * follow accu-cheks * usually on insulin pump as an outpatient * glycemic control per hospitalist/employee communications specialist Will continue to follow Subjective Date/time seen: 01/05/24 12:02 Interval history: Follow-up for acute hyponatremia. Successfully extubated yesterday and seems to be doing quite well from respiratory perspective; stable hemodynamics noted and mentation appears better if not closer to baseline as well; reasonable oral intake noted (eating lunch without difficulties); sodium level remains relatively stabl
--- NOTE | 2024-01-05 12:02 | PM.PNNEP ---
Progress Note: A&P Assessment and Plan (1) Hyponatremia: Code(s): E87.1 - Hypo-osmolality and hyponatremia Status: Acute Assessment and Plan: slow and steady improvement quite severe on presentation with sodium level of 103 on presentation review on labs demonstrates he has had issues with this in the past (but to this extreme) given concerns of neurological symptoms prior to intubation, initiated on 3% saline was on serial BMPs/sodiums to ensure overcorrection does not occur goal of therapy is a change of 6 - 8mmol/L in 24 hours - this has been acheived s/p 3% saline on admission risk factors for low sodium noted: alcohol abuse thyroid disease (?) -- TSH and FT4 results noted HCTZ use SSRI use evaluation to date: thyroid studies noted cortisol okay urine electrolytes prerenal SPEP/UPEP and serum/urine osmo pending changed free water tube flushes to normal saline flushes follow repeat sodium levels (2) Hypokalemia: Code(s): E87.6 - Hypokalemia Status: Acute Assessment and Plan: doing better suspect due to total body depletion from poor oral intake replace as needed magneisum okay follow trend (3) Acute respiratory failure: Code(s): J96.00 - Acute respiratory failure, unspecified whether with hypoxia or hypercapnia Status: Acute Assessment and Plan: resolved - extubated initially intubated for airway protection no pathology noted by chest imaging suspect related to alcohol withdrawal and sedation follow respiratory status (4) Alcohol withdrawal syndrome: Code(s): F10.239 - Alcohol dependence with withdrawal, unspecified Status: Acute Assessment and Plan: as evident by symptoms on admission: tremors tachycardia diaphoresis anxiety was drinking vodka daily in large quantities -- abruptly stopped drinking ~ 4 days prior to admission PRN ativan ordered (5) Benign essential HTN: Code(s): I10 - Essential (primary) hypertension Status: Chronic Assessment and Plan: initiated elevated on presentation (likely due to alcohol withdrawal) better readings better with sedation (when on ventilator) BP starting to rise -- probably okay to slowly re-introduce BP medications follow trend of hemodynamics (6) Abnormal liver enzymes: Code(s): R74.8 - Abnormal levels of other serum enzymes Status: Acute Assessment and Plan: presumably secondary to alcohol abuse hepatitis studies and RUQ ultrasound noted follow trend of LFTs (7) Diabetes type 1, controlled: Qualifiers: Diabetes mellitus complication status: without complication Qualified Code(s): E10.9 - Type 1 diabetes mellitus without complications Code(s): E10.9 - Type 1 diabetes mellitus without complications Status: Chronic Assessment and Plan: follow accu-cheks usually on insulin pump as an outpatient glycemic control per hospitalist/solutions architect consultant Will continue to follow Subjective Date/time seen: 01/05/24 12:02 Interval history: Follow-up for acute hyponatremia. Successfully extubated yesterday and seems to be doing quite well from respiratory perspective; stable hemodynamics noted and mentation appears better if not closer to baseline as well; reasonable oral intake noted (eating lunch without difficulties); sodium level remains relatively stable as well. Exam Narrative: General: WD/WN male in NAD Heart: RRR, normal S1 and S2; no rub Lungs: clear to auscultation Abdomen: soft, nontender, nondistended, hypoactive bowel sounds Extremities: no cyanosis or clubbing; no edema Skin: warm and dry Objective Data Vital Signs Vital Signs: Vital Signs Temp Pulse Resp BP Pulse Ox O2 Del Method FiO2 01/05/24 12:00 98 F 97 18 152/77 H 97 01/05/24 12:00 97 18 97 Room Air 30 01/05/24 12:00 152/77 H 01/05/24 1
[2024-01-05 16:39] LABS: Glucose Point of Care 250 mg/dl (65-105)
[2024-01-05 20:21] LABS: Glucose Point of Care 270 mg/dl (65-105)
[2024-01-05 23:22] LABS: Glucose Point of Care 213 mg/dl (65-105)
[2024-01-06] VITALS (16 sets, daily range): BP systolic 144–160; BP diastolic 77–92; PULSE 94–112; RESP 12–23; TEMP 36.3–37.4; O2SAT 97–100
[2024-01-06] MEDS: CEFEPIME 2 GM/NS 50 ML 2 GM/50 ML BAG IVPB ×2 (02:57→09:26)
[2024-01-06 03:13] LABS: Glucose Point of Care 133 mg/dl (65-105)
[2024-01-06] MEDS: CENTRAL LINE FLUSH 10 ML IV PUSH ×3 (06:13→20:35)
[2024-01-06] MEDS: chlordiazePOXIDE (*CRX) 25 MG CAPSULE FEED TUBE (06:13)
[2024-01-06 06:37] LABS: Hematocrit 28.4 % (42.0-52.0); Hemoglobin 9.7 g/dL (14.0-18.0); Mean Corpuscular HGB Conc 34.2 g/dl (32-36); Mean Corpuscular Volume 90.7 fl (80-100); Mean Platelet Volume 8.9 fl (7.4-10.4); Platelet Count Result 399 k/mm3 (150-375); Red Blood Count 3.13 M/mm3 (4.6-6.20); Red Cell Distribution Width 12.8 % (11.5-14.5); White Blood Count 6.7 K/mm3 (4.5-10.0)
[2024-01-06 06:53] LABS: Alanine Aminotransferase 80 U/L (6-50); Albumin Level 3.2 g/dL (3.5-5.1); Alkaline Phosphatase 159 U/L (38-126); Anion Gap 6 mmol/L (4-12); Aspartate Amino Transferase 36 U/L (17-59); Bilirubin,Total 0.6 mg/dL (0.2-1.3); Blood Urea Nitrogen 8 mg/dL (9-20); Calcium 8.3 mg/dL (8.4-10.2); Carbon Dioxide 31 mmol/L (22-30); Chloride 91 mmol/L (98-107); Estimated CRCL calculation 124 ml/min; Estimated Glomerular Filt Rate > 60; Glucose 172 mg/dL (65-110); Magnesium 1.9 mg/dL (1.6-2.3); Phosphorus 3.2 mg/dL (2.5-4.5); Potassium 3.4 mmol/L (3.4-5.0); Sodium 128 mmol/L (137-145)
[2024-01-06] MEDS: buPROPion HCL 100 MG TABLET FEED TUBE ×3 (08:09→16:26)
[2024-01-06] MEDS: ARIPiprazole 5 MG TABLET PO (08:09)
[2024-01-06] MEDS: FLUoxetine HCL 10 MG CAPSULE 30 MG PO (08:10)
[2024-01-06] MEDS: PANTOPRAZOLE SODIUM IV 40 MG VIAL IV PUSH (08:10)
[2024-01-06] MEDS: INSULIN GLARGINE (*BKC) 100 UNITS/ML 20 UNITS SUB-Q (08:10)
[2024-01-06] MEDS: ENOXAPARIN 40 MG/0.4 ML SYRINGE SUB-Q (08:10)
[2024-01-06 08:18] LABS: Glucose Point of Care 185 mg/dl (65-105)
[2024-01-06] MEDS: FOLIC ACID 1 MG/0.2 ML INJ IV PUSH (08:19)
[2024-01-06 11:56] LABS: Glucose Point of Care 351 mg/dl (65-105)
[2024-01-06] MEDS: AMOXICILLIN/CLAVULANATE K 875-125 MG TAB 1 TABLET PO ×2 (11:57→20:34)
[2024-01-06] MEDS: INSULIN ASPART (*BKC) 100 UNITS/ML SUB-Q (11:57)
--- NOTE | 2024-01-06 12:23 | PM.PNNEP ---
Progress Note: A&P Assessment and Plan (1) Hyponatremia: Code(s): E87.1 - Hypo-osmolality and hyponatremia Status: Acute Assessment and Plan: slow and steady improvement quite severe on presentation with sodium level of 103 on presentation review on labs demonstrates he has had issues with this in the past (but to this extreme) given concerns of neurological symptoms prior to intubation, initiated on 3% saline was on serial BMPs/sodiums to ensure overcorrection does not occur goal of therapy is a change of 6 - 8mmol/L in 24 hours - this has been acheived s/p 3% saline on admission risk factors for low sodium noted: alcohol abuse thyroid disease (?) -- TSH and FT4 results noted HCTZ use SSRI use evaluation to date: thyroid studies noted cortisol okay urine electrolytes prerenal SPEP/UPEP and serum/urine osmo pending follow repeat sodium levels (2) Hypokalemia: Code(s): E87.6 - Hypokalemia Status: Acute Assessment and Plan: doing better suspect due to total body depletion from poor oral intake replace as needed magneisum okay follow trend (3) Acute respiratory failure: Code(s): J96.00 - Acute respiratory failure, unspecified whether with hypoxia or hypercapnia Status: Acute Assessment and Plan: resolved - extubated initially intubated for airway protection no pathology noted by chest imaging suspect related to alcohol withdrawal and sedation follow respiratory status (4) Alcohol withdrawal syndrome: Code(s): F10.239 - Alcohol dependence with withdrawal, unspecified Status: Acute Assessment and Plan: as evident by symptoms on admission: tremors tachycardia diaphoresis anxiety was drinking vodka daily in large quantities -- abruptly stopped drinking ~ 4 days prior to admission PRN ativan ordered (5) Benign essential HTN: Code(s): I10 - Essential (primary) hypertension Status: Chronic Assessment and Plan: initiated elevated on presentation (likely due to alcohol withdrawal) better readings better with sedation (when on ventilator) BP starting to rise -- probably okay to slowly re-introduce BP medications follow trend of hemodynamics (6) Abnormal liver enzymes: Code(s): R74.8 - Abnormal levels of other serum enzymes Status: Acute Assessment and Plan: presumably secondary to alcohol abuse hepatitis studies and RUQ ultrasound noted follow trend of LFTs (7) Diabetes type 1, controlled: Qualifiers: Diabetes mellitus complication status: without complication Qualified Code(s): E10.9 - Type 1 diabetes mellitus without complications Code(s): E10.9 - Type 1 diabetes mellitus without complications Status: Chronic Assessment and Plan: follow accu-cheks usually on insulin pump as an outpatient glycemic control per hospitalist/machine fancy stitcher Will continue to follow Subjective Date/time seen: 01/06/24 12:23 Interval history: Follow-up for acute hyponatremia. Appears to be doing reasonably well at the time of my visit; no apparent distress noted; sodium continues to slowly improve with supportive therapy; no apparent issues overnight or earlier this morning; eating and drinking without any difficulties; no other acute complaints voiced currently. Exam Narrative: General: WD/WN male in NAD Heart: RRR, normal S1 and S2; no rub Lungs: clear to auscultation Abdomen: soft, nontender, nondistended, hypoactive bowel sounds Extremities: no cyanosis or clubbing; no edema Skin: warm and intact Objective Data Vital Signs Vital Signs: Vital Signs Temp Pulse Resp BP Pulse Ox O2 Del Method FiO2 01/06/24 11:59 99.0 F 104 H 18 150/80 H 100 Room Air 01/06/24 10:00 109 H 01/06/24 08:00 98 01/06/24 10:34 Room Air 01/06/24 08:00 Room Air 01/06/24 08:2
--- NOTE | 2024-01-06 12:23 | P.PNNP_ITS ---
Progress Note: A&P Assessment and Plan (1) Hyponatremia: Code(s): E87.1 - Hypo-osmolality and hyponatremia Status: Acute Assessment and Plan: * slow and steady improvement * quite severe on presentation with sodium level of 103 on presentation * review on labs demonstrates he has had issues with this in the past (but to this extreme) * given concerns of neurological symptoms prior to intubation, initiated on 3% saline * was on serial BMPs/sodiums to ensure overcorrection does not occur * goal of therapy is a change of 6 - 8mmol/L in 24 hours - this has been acheived * s/p 3% saline on admission * risk factors for low sodium noted: * alcohol abuse * thyroid disease (?) -- TSH and FT4 results noted * HCTZ use * SSRI use * evaluation to date: * thyroid studies noted * cortisol okay * urine electrolytes prerenal * SPEP/UPEP and serum/urine osmo pending * follow repeat sodium levels (2) Hypokalemia: Code(s): E87.6 - Hypokalemia Status: Acute Assessment and Plan: * doing better * suspect due to total body depletion from poor oral intake * replace as needed * magneisum okay * follow trend (3) Acute respiratory failure: Code(s): J96.00 - Acute respiratory failure, unspecified whether with hypoxia or hy percapnia Status: Acute Assessment and Plan: * resolved - extubated * initially intubated for airway protection * no pathology noted by chest imaging * suspect related to alcohol withdrawal and sedation * follow respiratory status (4) Alcohol withdrawal syndrome: Code(s): F10.239 - Alcohol dependence with withdrawal, unspecified Status: Acute Assessment and Plan: * as evident by symptoms on admission: * tremors * tachycardia * diaphoresis * anxiety * was drinking vodka daily in large quantities -- abruptly stopped drinking ~ 4 days prior to admission * PRN ativan ordered (5) Benign essential HTN: Code(s): I10 - Essential (primary) hypertension Status: Chronic Assessment and Plan: * initiated elevated on presentation (likely due to alcohol withdrawal) * better readings better with sedation (when on ventilator) * BP starting to rise -- probably okay to slowly re-introduce BP medications * follow trend of hemodynamics (6) Abnormal liver enzymes: Code(s): R74.8 - Abnormal levels of other serum enzymes Status: Acute Assessment and Plan: * presumably secondary to alcohol abuse * hepatitis studies and RUQ ultrasound noted * follow trend of LFTs (7) Diabetes type 1, controlled: Qualifiers: Diabetes mellitus complication status: without complication Qualified Code(s): E10.9 - Type 1 diabetes mellitus without complications Code(s): E10.9 - Type 1 diabetes mellitus without complications Status: Chronic Assessment and Plan: * follow accu-cheks * usually on insulin pump as an outpatient * glycemic control per hospitalist/advertising assistant Will continue to follow Subjective Date/time seen: 01/06/24 12:23 Interval history: Follow-up for acute hyponatremia. Appears to be doing reasonably well at the time of my visit; no apparent distress noted; sodium continues to slowly improve with supportive therapy; no apparent issues overnight or earlier this morning; eating and drinking without any difficulties; no other acute complaints voiced currently. Exam Narrative: Ge
--- NOTE | 2024-01-06 15:29 | PM.IMPN ---
Progress Note: A&P Assessment and Plan (1) Acute respiratory failure: Code(s): J96.00 - Acute respiratory failure, unspecified whether with hypoxia or hypercapnia Status: Acute (2) Elevated LFTs: Code(s): R79.89 - Other specified abnormal findings of blood chemistry Status: Acute (3) Insulin dependent diabetes mellitus: Status: Acute (4) Encephalopathy: Code(s): G93.40 - Encephalopathy, unspecified Status: Acute (5) Acute alcoholic hepatitis: Code(s): K70.10 - Alcoholic hepatitis without ascites Status: Acute (6) OZZY (obstructive sleep apnea): Code(s): G47.33 - Obstructive sleep apnea (adult) (pediatric) Status: Acute (7) Hyponatremia: Code(s): E87.1 - Hypo-osmolality and hyponatremia Status: Acute (8) Alcoholism in recovery: Code(s): F10.21 - Alcohol dependence, in remission Status: Acute Plan (1) Respiratory failure: Code(s): J96.90 - Respiratory failure, unspecified, unspecified whether with hypoxia or hypercapnia Status: Acute Assessment and Plan: Patient presented with alcohol withdrawal symptoms, received Ativan and Precedex infusion and was more somnolent, was intubated for airway protection. extubated today, patient tolerated extubation (2) Alcohol withdrawal syndrome: Code(s): F10.239 - Alcohol dependence with withdrawal, unspecified Status: Acute Assessment and Plan: Patient presented with tremors, tachycardia, diaphoresis, anxiety. Patient has been drinking vodka daily in large quantities, he has stopped drinking since the last 4 days before arrival in the ED patient received propofol up patient failed Ativan and Precedex infusion, patient is off of propofol, extubated monitor and management alcohol withdrawal symptom per CIWA protocol changed to Librium to 25 mg q.8 hours p.o. p.r.n. (3) Hyponatremia: Code(s): E87.1 - Hypo-osmolality and hyponatremia Status: Acute Assessment and Plan: Severe hyponatremia with sodium levels of 103 on admission -nephrology is managing with management and monitoring -status post 3% saline at 30 mL/hour for 500 mL initially -Serial BMPs are being done as per wig maker -sodium level 128 -continue to monitor urine output, electrolytes and renal function (4) Electrolyte imbalance: Code(s): E87.8 - Other disorders of electrolyte and fluid balance, not elsewhere classified Status: Acute Assessment and Plan: Will replace potassium and phosphate (5) Benign essential HTN: Code(s): I10 - Essential (primary) hypertension Status: Chronic Assessment and Plan: -blood pressures have been stable, hold all blood pressure medications for now. (Takes lisinopril and HCTZ at home) (6) Diabetes type 1, controlled: Qualifiers: Diabetes mellitus complication status: without complication Qualified Code(s): E10.9 - Type 1 diabetes mellitus without complications Code(s): E10.9 - Type 1 diabetes mellitus without complications Status: Chronic Assessment and Plan: Accu-Cheks and sliding scale insulin -hemoglobin A1c is 6.0 this admission -continue Lantus and increase dose (7) OZZY (obstructive sleep apnea): Code(s): G47.33 - Obstructive sleep apnea (adult) (pediatric) Status: Acute Assessment and Plan: CPAP at home setting (8) Major depression, recurrent, chronic: Code(s): F33.9 - Major depressive disorder, recurrent, unspecified Status: Acute Assessment and Plan: Patient is on lorazepam, trazodone, aripiprazole, bupropion. 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
[2024-01-06] MEDS: guaiFENesin/DEXTROMETHORPHAN 10 ML UDC PO (15:53)
--- NOTE | 2024-01-06 18:54 | PC.NURSE ---
This patient, Eduard Dc, was transferred to [[facility] ] on 01/06/24 at 1854. Personal belongings sent with patient. Report given to [ Speedy @ [phone]]. Appropriate documentation sent with patient.
[2024-01-06 21:00] LABS: Glucose Point of Care 163 mg/dl (65-105)
[2024-01-07 05:02] VITALS: BP 157/82; PULSE 86; RESP 18; TEMP 36.3; O2SAT 99
[2024-01-07] MEDS: CENTRAL LINE FLUSH 10 ML IV PUSH ×3 (05:24→20:53)
[2024-01-07 05:26] LABS: Hematocrit 29.5 % (42.0-52.0); Hemoglobin 10.1 g/dL (14.0-18.0); Mean Corpuscular HGB Conc 34.2 g/dl (32-36); Mean Corpuscular Volume 90.5 fl (80-100); Mean Platelet Volume 8.4 fl (7.4-10.4); Platelet Count Result 473 k/mm3 (150-375); Red Blood Count 3.26 M/mm3 (4.6-6.20); Red Cell Distribution Width 12.8 % (11.5-14.5)
[2024-01-07 05:34] LABS: Alanine Aminotransferase 66 U/L (6-50); Albumin Level 3.6 g/dL (3.5-5.1); Alkaline Phosphatase 144 U/L (38-126); Anion Gap 4 mmol/L (4-12); Aspartate Amino Transferase 37 U/L (17-59); Bilirubin,Total 0.4 mg/dL (0.2-1.3); Blood Urea Nitrogen 9 mg/dL (9-20); Calcium 8.8 mg/dL (8.4-10.2); Carbon Dioxide 34 mmol/L (22-30); Chloride 93 mmol/L (98-107); Estimated CRCL calculation 124 ml/min; Estimated Glomerular Filt Rate > 60; Glucose 84 mg/dL (65-110); Phosphorus 3.9 mg/dL (2.5-4.5); Potassium 3.5 mmol/L (3.4-5.0); Sodium 131 mmol/L (137-145); Triglycerides 69 mg/dL (<150)
--- NOTE | 2024-01-07 05:39 | PC.NURSE ---
Basal rate of insulin pump 0.9 units/hr. Patient had a 5 unit bolus at 1800 on his sheet and basal rate for rest of shift.
[2024-01-07 07:53] LABS: Glucose Point of Care 59 mg/dl (65-105)
[2024-01-07 08:25] LABS: Glucose Point of Care 109 mg/dl (65-105)
[2024-01-07] MEDS: DEXTROSE 50% 25 GM/50 ML SYRINGE IV PUSH (08:31)
--- NOTE | 2024-01-07 08:31 | PM.IMPN ---
Progress Note: A&P Assessment and Plan (1) Acute respiratory failure: Code(s): J96.00 - Acute respiratory failure, unspecified whether with hypoxia or hypercapnia Status: Acute (2) Elevated LFTs: Code(s): R79.89 - Other specified abnormal findings of blood chemistry Status: Acute (3) Insulin dependent diabetes mellitus: Status: Acute (4) Encephalopathy: Code(s): G93.40 - Encephalopathy, unspecified Status: Acute (5) Acute alcoholic hepatitis: Code(s): K70.10 - Alcoholic hepatitis without ascites Status: Acute (6) OZZY (obstructive sleep apnea): Code(s): G47.33 - Obstructive sleep apnea (adult) (pediatric) Status: Acute (7) Hyponatremia: Code(s): E87.1 - Hypo-osmolality and hyponatremia Status: Acute (8) Alcoholism in recovery: Code(s): F10.21 - Alcohol dependence, in remission Status: Acute Plan (1) Respiratory failure: Code(s): J96.90 - Respiratory failure, unspecified, unspecified whether with hypoxia or hypercapnia Status: Acute Assessment and Plan: Patient presented with alcohol withdrawal symptoms, received Ativan and Precedex infusion and was more somnolent, was intubated for airway protection. extubated today, patient tolerated extubation (2) Alcohol withdrawal syndrome: Code(s): F10.239 - Alcohol dependence with withdrawal, unspecified Status: Acute Assessment and Plan: Patient presented with tremors, tachycardia, diaphoresis, anxiety. Patient has been drinking vodka daily in large quantities, he has stopped drinking since the last 4 days before arrival in the ED patient received propofol up patient failed Ativan and Precedex infusion, patient is off of propofol, extubated monitor and management alcohol withdrawal symptom per CIWA protocol changed to Librium to 25 mg q.8 hours p.o. p.r.n. (3) Hyponatremia: Code(s): E87.1 - Hypo-osmolality and hyponatremia Status: Acute Assessment and Plan: Severe hyponatremia with sodium levels of 103 on admission -nephrology is managing with management and monitoring -status post 3% saline at 30 mL/hour for 500 mL initially -Serial BMPs are being done as per apparel trimmings sales representative -sodium level 131 -continue to monitor urine output, electrolytes and renal function (4) Electrolyte imbalance: Code(s): E87.8 - Other disorders of electrolyte and fluid balance, not elsewhere classified Status: Acute Assessment and Plan: Will replace potassium and phosphate (5) Benign essential HTN: Code(s): I10 - Essential (primary) hypertension Status: Chronic Assessment and Plan: -blood pressures have been stable, hold all blood pressure medications for now. (Takes lisinopril and HCTZ at home) (6) Diabetes type 1, controlled: Qualifiers: Diabetes mellitus complication status: without complication Qualified Code(s): E10.9 - Type 1 diabetes mellitus without complications Code(s): E10.9 - Type 1 diabetes mellitus without complications Status: Chronic Assessment and Plan: Accu-Cheks and sliding scale insulin -hemoglobin A1c is 6.0 this admission -continue Lantus and increase dose 6/7 hypoglycemia, patient has insulin pump, Lantus, and short acting insulin were stopped yesterday possible due to poor intake, provide intravenous and this shows 50 IV push once (7) OZZY (obstructive sleep apnea): Code(s): G47.33 - Obstructive sleep apnea (adult) (pediatric) Status: Acute Assessment and Plan: CPAP at home setting (8) Major depression, recurrent, chronic: Code(s): F33.9 - Major depressive disorder, recurrent, unspecified Status: Acute Assessment and Plan: Patient is on lorazepam, trazodone, aripiprazole, bupropion. fluoxetine at home -will continue aripiprazole, bupropion and fluoxetine (9) Abnormal liver enzymes:
[2024-01-07] MEDS: ENOXAPARIN 40 MG/0.4 ML SYRINGE SUB-Q (08:35)
[2024-01-07] MEDS: AMOXICILLIN/CLAVULANATE K 875-125 MG TAB 1 TABLET PO ×2 (08:36→20:53)
[2024-01-07] MEDS: PANTOPRAZOLE SODIUM IV 40 MG VIAL IV PUSH (08:36)
[2024-01-07] MEDS: ARIPiprazole 5 MG TABLET PO (08:36)
[2024-01-07] MEDS: FLUoxetine HCL 10 MG CAPSULE 30 MG PO (08:36)
--- NOTE | 2024-01-07 11:21 | PCNFU ---
Nutrition Follow-Up Complete: Increased protein energy needs related to mechanical ventilation as evidenced by need for full tube feeding - RESOLVED Goal:Meet estimated protein and energy needs Pt is meeting goal, continue with same goal Pt current nutrition is Diabetic, soft and bite sized, Glucerna shakes BID. Nutrition recommendation: continue with current plan of care Last recorded weight is 75.126 kg. Bowel Motility: +BM / Labs Reviewed: Hgb:10.1, HCT:29.5, NA:131, Glu:109 Meds Noted: protonix, lovenox, folic acid Skin: WNL Additional Notes: Pt started on a diabetic soft and bite sized consistency diet, Glucerna shakes BID ordered. Intake good at 100%. Agree with diet orders, pt tolerating well. Monitoring intake labs, weights, plan of care Follow up in 5 days.
[2024-01-07 11:29] LABS: Glucose Point of Care 115 mg/dl (65-105)
[2024-01-07] MEDS: buPROPion HCL 100 MG TABLET PO ×2 (11:29→20:53)
--- NOTE | 2024-01-07 11:30 | P.PNNP_ITS ---
Progress Note: A&P Assessment and Plan (1) Hyponatremia: Code(s): E87.1 - Hypo-osmolality and hyponatremia Status: Acute Assessment and Plan: * slow and steady improvement noted * quite severe on presentation with sodium level of 103 on presentation * review on labs demonstrates he has had issues with this in the past (but to this extreme) * given concerns of neurological symptoms prior to intubation, initiated on 3% saline * was on serial BMPs/sodiums to ensure overcorrection does not occur * goal of therapy is a change of 6 - 8mmol/L in 24 hours - this has been acheived * s/p 3% saline on admission * risk factors for low sodium noted: * alcohol abuse * thyroid disease (?) -- TSH and FT4 results noted * HCTZ use * SSRI use * evaluation to date: * thyroid studies noted * cortisol okay * urine electrolytes prerenal * SPEP/UPEP and serum/urine osmo pending * follow repeat sodium levels (2) Hypokalemia: Code(s): E87.6 - Hypokalemia Status: Acute Assessment and Plan: * doing better * suspect due to total body depletion from poor oral intake * replace as needed * magneisum okay * follow trend (3) Acute respiratory failure: Code(s): J96.00 - Acute respiratory failure, unspecified whether with hypoxia or hypercapnia Status: Acute Assessment and Plan: * resolved (extubated) * initially intubated for airway protection * no pathology noted by chest imaging * suspect related to alcohol withdrawal and sedation * follow respiratory status (4) Alcohol withdrawal syndrome: Code(s): F10.239 - Alcohol dependence with withdrawal, unspecified Status: Acute Assessment and Plan: * as evident by symptoms on admission: * tremors * tachycardia * diaphoresis * anxiety * was drinking vodka daily in large quantities -- abruptly stopped drinking ~ 4 days prior to admission * PRN ativan ordered (5) Benign essential HTN: Code(s): I10 - Essential (primary) hypertension Status: Chronic Assessment and Plan: * initiated elevated on presentation (likely due to alcohol withdrawal) * better readings better with sedation (when on ventilator) * reasonable control at this time * follow trend of hemodynamics (6) Abnormal liver enzymes: Code(s): R74.8 - Abnormal levels of other serum enzymes Status: Acute Assessment and Plan: * presumably secondary to alcohol abuse * hepatitis studies and RUQ ultrasound noted * follow trend of LFTs (7) Diabetes type 1, controlled: Qualifiers: Diabetes mellitus complication status: without complication Qualified Code(s): E10.9 - Type 1 diabetes mellitus without complications Code(s): E10.9 - Type 1 diabetes mellitus without complications Status: Chronic Assessment and Plan: * follow accu-cheks * usually on insulin pump as an outpatient * glycemic control per hospitalist/pizza driver Not much else to add -- will continue to follow from a distance. Subjective Date/time seen: 01/07/24 11:30 Interval history: Follow-up for acute hyponatremia. No apparent distress noted at the time of my visit; transferred out of ICU yesterday; sodium levels continues to slowly improve without any specific intervention at this time; no other issues/events overnight or earlier this morning aside from hypoglycemia earlier today. Exam Narrative: General: WD/WN Cauc
--- NOTE | 2024-01-07 11:30 | PM.PNNEP ---
Progress Note: A&P Assessment and Plan (1) Hyponatremia: Code(s): E87.1 - Hypo-osmolality and hyponatremia Status: Acute Assessment and Plan: slow and steady improvement noted quite severe on presentation with sodium level of 103 on presentation review on labs demonstrates he has had issues with this in the past (but to this extreme) given concerns of neurological symptoms prior to intubation, initiated on 3% saline was on serial BMPs/sodiums to ensure overcorrection does not occur goal of therapy is a change of 6 - 8mmol/L in 24 hours - this has been acheived s/p 3% saline on admission risk factors for low sodium noted: alcohol abuse thyroid disease (?) -- TSH and FT4 results noted HCTZ use SSRI use evaluation to date: thyroid studies noted cortisol okay urine electrolytes prerenal SPEP/UPEP and serum/urine osmo pending follow repeat sodium levels (2) Hypokalemia: Code(s): E87.6 - Hypokalemia Status: Acute Assessment and Plan: doing better suspect due to total body depletion from poor oral intake replace as needed magneisum okay follow trend (3) Acute respiratory failure: Code(s): J96.00 - Acute respiratory failure, unspecified whether with hypoxia or hypercapnia Status: Acute Assessment and Plan: resolved (extubated) initially intubated for airway protection no pathology noted by chest imaging suspect related to alcohol withdrawal and sedation follow respiratory status (4) Alcohol withdrawal syndrome: Code(s): F10.239 - Alcohol dependence with withdrawal, unspecified Status: Acute Assessment and Plan: as evident by symptoms on admission: tremors tachycardia diaphoresis anxiety was drinking vodka daily in large quantities -- abruptly stopped drinking ~ 4 days prior to admission PRN ativan ordered (5) Benign essential HTN: Code(s): I10 - Essential (primary) hypertension Status: Chronic Assessment and Plan: initiated elevated on presentation (likely due to alcohol withdrawal) better readings better with sedation (when on ventilator) reasonable control at this time follow trend of hemodynamics (6) Abnormal liver enzymes: Code(s): R74.8 - Abnormal levels of other serum enzymes Status: Acute Assessment and Plan: presumably secondary to alcohol abuse hepatitis studies and RUQ ultrasound noted follow trend of LFTs (7) Diabetes type 1, controlled: Qualifiers: Diabetes mellitus complication status: without complication Qualified Code(s): E10.9 - Type 1 diabetes mellitus without complications Code(s): E10.9 - Type 1 diabetes mellitus without complications Status: Chronic Assessment and Plan: follow accu-cheks usually on insulin pump as an outpatient glycemic control per hospitalist/veterinarian Not much else to add -- will continue to follow from a distance. Subjective Date/time seen: 01/07/24 11:30 Interval history: Follow-up for acute hyponatremia. No apparent distress noted at the time of my visit; transferred out of ICU yesterday; sodium levels continues to slowly improve without any specific intervention at this time; no other issues/events overnight or earlier this morning aside from hypoglycemia earlier today. Exam Narrative: General: WD/WN male in NAD Heart: RRR, normal S1 and S2; no rub Lungs: clear to auscultation Abdomen: soft, nontender, nondistended, positive bowel sounds Extremities: no cyanosis or clubbing; no edema Skin: no rash or nodules Objective Data Vital Signs Vital Signs: Vital Signs Temp Pulse Resp BP Pulse Ox O2 Del Method 01/07/24 11:22 98.5 F 96 15 139/76 99 01/07/24 05:02 97.3 F L 86 18 157/82 H 99 01/06/24 23:05 15 97 CPAP 01/06/24 20:33 97.3 F L 101 H 18 144/77 H 100 01/06/24 20:00 98 Room Air
[2024-01-07] MEDS: FOLIC ACID 1 MG/0.2 ML INJ IV PUSH (11:52)
[2024-01-07 14:22] VITALS: BP 139/76; PULSE 96; RESP 15; TEMP 36.9; O2SAT 99
[2024-01-07 16:56] LABS: Glucose Point of Care 142 mg/dl (65-105)
[2024-01-07 20:00] VITALS: O2SAT 99
[2024-01-07 20:25] LABS: Glucose Point of Care 199 mg/dl (65-105)
[2024-01-07 21:04] VITALS: BP 155/84; PULSE 96; RESP 18; TEMP 37; O2SAT 100
[2024-01-07 23:50] VITALS: PULSE 92; RESP 16; O2SAT 98
[2024-01-08 04:10] VITALS: PULSE 85; RESP 11; O2SAT 100
[2024-01-08] MEDS: buPROPion HCL 100 MG TABLET PO (04:56)
[2024-01-08] MEDS: CENTRAL LINE FLUSH 10 ML IV PUSH (04:56)
[2024-01-08 05:26] VITALS: BP 159/81; PULSE 68; RESP 16; TEMP 36.3; O2SAT 100
[2024-01-08 05:26] LABS: Hemoglobin 9.3 g/dL (14.0-18.0); Mean Corpuscular HGB Conc 33.2 g/dl (32-36); Mean Corpuscular Hemoglobin 31.2 pg (26-34); Mean Platelet Volume 9.4 fl (7.4-10.4); Platelet Count Result 147 k/mm3 (150-375); Red Blood Count 2.98 M/mm3 (4.6-6.20); Red Cell Distribution Width 12.9 % (11.5-14.5); White Blood Count 5.8 K/mm3 (4.5-10.0)
[2024-01-08 05:35] LABS: Alanine Aminotransferase 54 U/L (6-50); Albumin Level 3.5 g/dL (3.5-5.1); Alkaline Phosphatase 114 U/L (38-126); Anion Gap 6 mmol/L (4-12); Aspartate Amino Transferase 28 U/L (17-59); Bilirubin,Total 0.4 mg/dL (0.2-1.3); Blood Urea Nitrogen 10 mg/dL (9-20); Calcium 8.3 mg/dL (8.4-10.2); Carbon Dioxide 29 mmol/L (22-30); Chloride 94 mmol/L (98-107); Estimated CRCL calculation 124 ml/min; Estimated Glomerular Filt Rate > 60; Glucose 168 mg/dL (65-110); Potassium 3.5 mmol/L (3.4-5.0); Sodium 129 mmol/L (137-145)
--- NOTE | 2024-01-08 07:30 | PC.NURSE ---
per Patient Insulin Pump Worksheet for 01/07/24-01/08/24, patient received 29.3units total in 24 hr period; basal rate 0.9 units/hr and 7.7units total in boluses (2.2units @1300, 3.6units @1700, and 1.9units @2200.)
[2024-01-08 07:58] LABS: Glucose Point of Care 138 mg/dl (65-105)
[2024-01-08] MEDS: AMOXICILLIN/CLAVULANATE K 875-125 MG TAB 1 TABLET PO (09:25)
[2024-01-08] MEDS: ENOXAPARIN 40 MG/0.4 ML SYRINGE SUB-Q (09:25)
[2024-01-08] MEDS: ARIPiprazole 5 MG TABLET PO (09:25)
[2024-01-08] MEDS: FLUoxetine HCL 10 MG CAPSULE 30 MG PO (09:25)
[2024-01-08] MEDS: FOLIC ACID 1 MG/0.2 ML INJ IV PUSH (09:26)
[2024-01-08] MEDS: PANTOPRAZOLE SODIUM IV 40 MG VIAL IV PUSH (09:27)
[2024-01-08] MEDS: guaiFENesin/DEXTROMETHORPHAN 10 ML UDC PO (09:28)
--- NOTE | 2024-01-08 10:31 | PM.IMPN ---
Progress Note: A&P Assessment and Plan (1) Acute respiratory failure: Code(s): J96.00 - Acute respiratory failure, unspecified whether with hypoxia or hypercapnia Status: Acute (2) Elevated LFTs: Code(s): R79.89 - Other specified abnormal findings of blood chemistry Status: Acute (3) Insulin dependent diabetes mellitus: Status: Acute (4) Encephalopathy: Code(s): G93.40 - Encephalopathy, unspecified Status: Acute (5) Acute alcoholic hepatitis: Code(s): K70.10 - Alcoholic hepatitis without ascites Status: Acute (6) OZZY (obstructive sleep apnea): Code(s): G47.33 - Obstructive sleep apnea (adult) (pediatric) Status: Acute (7) Hyponatremia: Code(s): E87.1 - Hypo-osmolality and hyponatremia Status: Acute (8) Alcoholism in recovery: Code(s): F10.21 - Alcohol dependence, in remission Status: Acute Plan (1) Respiratory failure: Code(s): J96.90 - Respiratory failure, unspecified, unspecified whether with hypoxia or hypercapnia Status: Acute Assessment and Plan: Patient presented with alcohol withdrawal symptoms, received Ativan and Precedex infusion and was more somnolent, was intubated for airway protection. extubated, patient tolerated extubation (2) Alcohol withdrawal syndrome: Code(s): F10.239 - Alcohol dependence with withdrawal, unspecified Status: Acute Assessment and Plan: Patient presented with tremors, tachycardia, diaphoresis, anxiety. Patient has been drinking vodka daily in large quantities, he has stopped drinking since the last 4 days before arrival in the ED patient received propofol up patient failed Ativan and Precedex infusion, patient was off of propofol, extubated monitor and management alcohol withdrawal symptom per CIWA protocol changed to Librium to 25 mg q.8 hours p.o. p.r.n. now patient has no alcohol withdrawal symptoms, patient is not using Librium (3) Hyponatremia: Code(s): E87.1 - Hypo-osmolality and hyponatremia Status: Acute Assessment and Plan: Severe hyponatremia with sodium levels of 103 on admission -nephrology is managing with management and monitoring -status post 3% saline at 30 mL/hour for 500 mL initially -Serial BMPs are being done as per consultants intern -sodium level 129 -continue to monitor electrolytes and renal function after discharge per PCP and consultants intern (4) Electrolyte imbalance: Code(s): E87.8 - Other disorders of electrolyte and fluid balance, not elsewhere classified Status: Acute Assessment and Plan: repleted potassium and phosphate (5) Benign essential HTN: Code(s): I10 - Essential (primary) hypertension Status: Chronic Assessment and Plan: -blood pressures have been stable, resume lisinopril, continue hold hydrochlorothiazide because of hyponatremia (6) Diabetes type 1, controlled: Qualifiers: Diabetes mellitus complication status: without complication Qualified Code(s): E10.9 - Type 1 diabetes mellitus without complications Code(s): E10.9 - Type 1 diabetes mellitus without complications Status: Chronic Assessment and Plan: Accu-Cheks and sliding scale insulin -hemoglobin A1c is 6.0 this admission -continue Lantus and increase dose 01/06 hypoglycemia, patient has insulin pump, Lantus, and short acting insulin were stopped yesterday possible due to poor intake, provide intravenous and this shows 50 IV push once 01/07: hypoglycemia resolved (7) OZZY (obstructive sleep apnea): Code(s): G47.33 - Obstructive sleep apnea (adult) (pediatric) Status: Acute Assessment and Plan: CPAP at home setting (8) Major depression, recurrent, chronic: Code(s): F33.9 - Major depressive disorder, recurrent, unspecified Status: Acute Assessment and Plan: Patient is on lorazepam, trazodone, aripiprazole, b
--- NOTE | 2024-01-08 10:37 | PM.DS ---
DS: Admitting Diagnosis Discharge Date 01/07 Admitting Diagnosis (1) Acute respiratory failure: Code(s): J96.00 - Acute respiratory failure, unspecified whether with hypoxia or hypercapnia Status: Acute (2) Elevated LFTs: Code(s): R79.89 - Other specified abnormal findings of blood chemistry Status: Acute (3) Insulin dependent diabetes mellitus: Status: Acute (4) Encephalopathy: Code(s): G93.40 - Encephalopathy, unspecified Status: Acute (5) Acute alcoholic hepatitis: Code(s): K70.10 - Alcoholic hepatitis without ascites Status: Acute (6) OZZY (obstructive sleep apnea): Code(s): G47.33 - Obstructive sleep apnea (adult) (pediatric) Status: Acute (7) Hyponatremia: Code(s): E87.1 - Hypo-osmolality and hyponatremia Status: Acute (8) Alcoholism in recovery: Code(s): F10.21 - Alcohol dependence, in remission Status: Acute DS: Discharge Diagnosis Discharge Diagnosis (1) Acute respiratory failure: Code(s): J96.00 - Acute respiratory failure, unspecified whether with hypoxia or hypercapnia Status: Acute (2) Elevated LFTs: Code(s): R79.89 - Other specified abnormal findings of blood chemistry Status: Acute (3) Insulin dependent diabetes mellitus: Status: Acute (4) Encephalopathy: Code(s): G93.40 - Encephalopathy, unspecified Status: Acute (5) Acute alcoholic hepatitis: Code(s): K70.10 - Alcoholic hepatitis without ascites Status: Acute (6) OZZY (obstructive sleep apnea): Code(s): G47.33 - Obstructive sleep apnea (adult) (pediatric) Status: Acute (7) Hyponatremia: Code(s): E87.1 - Hypo-osmolality and hyponatremia Status: Acute (8) Alcoholism in recovery: Code(s): F10.21 - Alcohol dependence, in remission Status: Acute DS: Summary Hospital Course Hospital Course: per H&P: This is a 48-year-old male with history of alcoholism, alcohol withdrawal, hypertension, hyperlipidemia, insulin-dependent diabetes, anxiety, gastroesophageal reflux disease, and obstructive sleep apnea on CPAP who presented to the emergency department for evaluation of alcohol withdrawal. He is currently sedated and intubated on mechanical ventilation and cannot provide any history and thus the following history is obtained via a review of his EMR as well as information provided by his . He is known to myself and the hospitalist service from several admissions over the years for alcohol withdrawal, the last being in August 2023. According to the EMR, he has been binge drinking for several weeks, reportedly up to a handle of hard liquor a day. His last drink was about 4 days ago and he presents today with withdrawal symptoms including tremors, tachycardia, sweats, and anxiety. He took Ativan 0.5 mg at home without benefit. In the ED: He was tachycardic and hypertensive on arrival with blood pressures as high as 230/83. Labs were significant for a WBC count of 12.0, hemoglobin 13.1, platelet 231, INR 1.0, sodium 105, potassium 3.1, chloride 63, carbon dioxide 32, anion gap 13, BUN 10, creatinine 0.60, calcium 8.1, magnesium 1.7, total bilirubin 2.0, AST 92, ALT 61, alkaline phosphatase 90. He was intubated for impending respiratory failure given the need for high doses of benzodiazepines for withdrawal symptoms. Potassium was replaced. He was started on 3% normal saline after conferring with Nephrology. He has been admitted to the ICU in this setting. Several hours after admission he developed tremors on maximum doses of propofol. Midazolam was initiated with improvement. Tremors did not seem consistent with active seizures. the following med issues have been addressed during hospitalization (1) Respiratory failure: Code(s): J96.90 - Respiratory failure, unspecified, unspecified whether with hypoxia or hypercapnia Status: Acute Assessment and Plan:
[2024-01-08 11:30] LABS: Glucose Point of Care 201 mg/dl (65-105)
--- NOTE | 2024-01-08 13:25 | PC.NURSE ---
patient discharging this afternoon; total of 18.7units of insulin received from insulin pump from 0600 01/08/24 to 1200 01/09/24 is 18.7units; basal rate 0.9units/hr, 12.4units total for boluses (7.2 units(0800), 1.5 units(1100), 3.7units(1200).
--- NOTE | 2024-01-14 10:42 | PCCDE ---
01/13/24: 10:42 AM Attempted to reach pt post discharge. Message left on voicemail including direct number for call back. JASON LLOYD
== END 2024-01-08 13:45 | disposition other institution (70) | DRG 896 ==
LOC: ANHED 11:46 → ANHICU 12:45 → ANH3MEDSUR 01-06 18:53
PROVIDERS: Internal Medicine; Internal Medicine Nephrology; Student in an Organized Health Care Education/Training Program; Admitting Provider Internal Medicine; Emergency Provider Emergency Medicine; PCP Emergency Medicine; Visit Provider Hospitalist
DX: F10.231 Alcohol dependence with withdrawal delirium (principal); J69.0 Pneumonitis due to inhalation of food and vomit; E87.1 Hypo-osmolality and hyponatremia; F33.9 Major depressive disorder, recurrent, unspecified; B96.3 Hemophilus influenzae [H. influenzae] as the cause of diseases classified elsewhere; K70.10 Alcoholic hepatitis without ascites; K70.0 Alcoholic fatty liver; E87.6 Hypokalemia; I10 Essential (primary) hypertension; E10.9 Type 1 diabetes mellitus without complications; Z96.41 Presence of insulin pump (external) (internal); Z79.4 Long term (current) use of insulin; G47.33 Obstructive sleep apnea (adult) (pediatric); F41.9 Anxiety disorder, unspecified; G25.2 Other specified forms of tremor; K21.9 Gastro-esophageal reflux disease without esophagitis; E87.8 Other disorders of electrolyte and fluid balance, not elsewhere classified
CPT/HCPCS: 31500; 36415; 36569; 36600; 71045; 76705; 80048; 80053; 80074; 80307; 81001; 81050; 82375; 82533; 82550; 82570; 82607; 82746; 82805; 82948; 83036; 83050; 83690; 83735; 83883; 84100; 84145; 84155; 84156; 84165; 84166; 84295; 84300; 84439; 84443; 84478; 84540; 85025; 85027; 85610; 85730; 87040; 87070; 87077; 87185; 87205; 87641; 92610; 94002; 94003; 96374; 96375; 96376; 97161; 97165; 97530; 97535; 99291; A9270; C9113; G0378; J0330; J0612; J0692; J1650; J1815; J2060; J2250; J2560; J2704; J3370; J3411; J3475; J3480; J7040; J7050; J7060; J7120; J7131; P9045

== ENCOUNTER 2024-06-21 09:10 | Outpatient (CLI) | payer OTHER, SELFPAY ==
--- NOTE | ~2024-06-21 | XR_ITS ---
Clinical Indication: Pneumonia PA and lateral views of the chest: Comparison: 01/05/2024 Findings: Tracheostomy cannula present. The lungs are clear, without evidence of focal consolidation or pleural effusion. Cardiomediastinal silhouette is within normal limits. Bones and soft tissues ar e unremarkable. Impression: Clear lungs. Tracheostomy cannula. Reviewed, dictated and finalized at location . HANDLER Impression: Clear lungs. Tracheostomy cannula.
== END 2024-06-21 09:11 | disposition home or self-care (01) ==
LOC: MICIMG 09:12
PROVIDERS: PCP Nurse Practitioner Acute Care; Visit Provider Nurse Practitioner Acute Care
DX: J18.9 Pneumonia, unspecified organism (principal)
CPT/HCPCS: 71046